=== PATIENT | female | born 2000 | race Caucasian/White ===

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

== ENCOUNTER 2022-03-11 14:15 | Emergency (ER) | payer OTHER, MEDICAID, SELFPAY ==
[2022-03-11 14:40] VITALS: PULSE 120; RESP 16; TEMP 37.1; O2SAT 100
--- NOTE | 2022-03-11 14:50 | ED.GENADULT ---
HPI - General Adult General Chief complaint: Upper Respiratory Infection Stated complaint: fever/chills/lower back pain Time Seen by Provider: 03/11/22 14:50 Source: patient Mode of arrival: ambulatory Limitations: no limitations History of Present Illness HPI narrative: 21-year-old female presents with complaint of sore throat, headaches, nasal congestion, body aches, chills for 4 days. Has also had some nausea and vomiting. Vomited once today. Had low-grade fever for 2 days but that has resolved. Patient is 26 weeks states her OB sent her here for COVID and flu testing. All systems reviewed and negative except as noted above. Related Data Home Medications Medication Instructions Recorded Confirmed No Home Medications 03/11/22 03/11/22 Allergies Allergy/AdvReac Type Severity Reaction Status Date / Time No Known Allergies Allergy Verified 07/22/20 21:59 Review of Systems Review of Systems: CONSTITUTIONAL: Reports fever, chills, or sweats. EYES: Denies visual changes, redness, or discharge. ENT: Reports rhinorrhea, congestion, sore throat. Denies otalgia. CARDIOVASCULAR: Denies chest pain, palpitations, or edema. RESPIRATORY: Reports cough. Denies dyspnea. GASTROINTESTINAL: Denies abdominal pain, nausea, vomiting, or diarrhea. GENITOURINARY: Denies dysuria or hematuria. SKIN: Denies rash or itching. MUSCULOSKELETAL: Denies back pain, joint pain, or myalgia. NEUROLOGIC: Denies headache, numbness, or weakness. PSYCHIATRIC: Denies anxiety or depression. All other systems reviewed are negative, except as documented in HPI. PMFSH Social History Social History (Updated 07/23/20 @ 03:36 by Wesley Patterson MD) Alcohol intake: current Gender identity (if verbalized by the patient): Female Comments At time of signature, agree with nursing past medical, surgical, social and family history. There is no relevant family history pertinent to the presenting complaint. Exam Narrative: GENERAL: This is a well-nourished, well-developed patient, in no apparent distress. HEAD: normocephalic, atraumatic. EYES: PERRL. Sclera clear/white. Vision is grossly intact. EARS: External ears normal, auditory canals clear and without drainage, TMs normal without perforation. Hearing grossly intact. NOSE: External nose normal with clear nasal drainage. No erythema or swelling to nares. THROAT: Mucous membranes moist, mild erythema to posterior pharynx with clear postnasal drip. NECK: Neck supple, non-tender without lymphadenopathy, masses or thyromegaly. CARDIOVASCULAR: Regular rate and rhythm without murmurs, gallops, or rubs. RESPIRATORY: Clear to auscultation. Breath sounds equal bilaterally. No wheezes, rales, or rhonchi. SKIN: warm, Dry, intact with no suspicious lesions or rash, good texture and turgor. NEURO: awake, alert, and oriented to person, place and time. There were no obvious focal neurologic abnormalities. EXTREMITIES: Normal range of motion to all extremities. Course Course Level of Care: Express Care Visit Vital Signs Vital signs: Vital Signs Temperature 37.1 C 03/11/22 14:40 Pulse Rate 120 H 03/11/22 14:40 Respiratory Rate 16 03/11/22 14:40 Pulse Oximetry 100 03/11/22 14:40 Temperature 37.1 C 03/11/22 14:40 Pulse Rate 120 H 03/11/22 14:40 Respiratory Rate 16 03/11/22 14:40 Pulse Oximetry 100 03/11/22 14:40 Reviewed Transfer Transfered to: [place] Transportation: Other (Private vehicle) Transfer rationale: Positive COVID, heart rate 120, 3+ ketones. Patient requires IV hydration. Accepting physician: Eliza Tamez NP Medical Decision Making MDM Narrative Medical decision making narrative: Transferring patient to [place] ER for IV hydration and monitoring. She is positive for COVID today. Her heart rate is 120, 3+ ketones in urine. Report given to Eliza Tamez NP. Patient agrees to transfer. Patient is aware of diagnosis, understands and
--- NOTE | 2022-03-11 15:36 | PC.NURSE ---
manpower development specialist manager to provider report given.
== END 2022-03-11 15:47 | disposition short-term general hospital (02) ==
PROVIDERS: Emergency Provider Nurse Practitioner Family
DX: O98.512 Other viral diseases complicating pregnancy, second trimester (principal); U07.1 COVID-19; Z3A.26 26 weeks gestation of pregnancy; O99.282 Endocrine, nutritional and metabolic diseases complicating pregnancy, second trimester; E86.0 Dehydration
CPT/HCPCS: 81003; 87081; 87426; 87804; 87880; 99213; C9803; G0463

== ENCOUNTER 2022-03-11 16:26 | Emergency (ER) | payer OTHER, MEDICAID, SELFPAY ==
[2022-03-11 16:48] VITALS: BP 130/81; PULSE 120; RESP 14; TEMP 36.7; O2SAT 100
[2022-03-11 17:05] LABS: Basophils Percent Auto 0.4 % (0.2-1.2); Eosinophils Percent Auto 0.2 % (0-4.4); Hematocrit 34.6 % (37.0-47.0); Hemoglobin 11.1 g/dL (12.0-15.0); Immature Granulocyte Absolute 0.02 K/mm3 (0.00-0.031); Immature Granulocyte Percent A 0.4 % (0-0.5); Lymphocytes Absolute Auto 0.91 K/mm3 (0.9-3.2); Lymphocytes Percent Auto 16.1 % (18.3-44.2); Mean Corpuscular HGB Conc 32.1 g/dl (32-36); Mean Corpuscular Volume 87.4 fl (80-100); Mean Platelet Volume 10.1 fl (7.4-10.4); Monocytes Absolute Auto 0.5 K/mm3 (0.1-0.6); Monocytes Percent Auto 8.8 % (2.6-8.5); Neutrophils Absolute Auto 4.2 K/mm3 (1.3-6.7); Neutrophils Percent Auto 74.1 % (45.5-73.1); Platelet Count Result 257 k/mm3 (150-375); Red Blood Count 3.96 M/mm3 (4.2-5.4); Red Cell Distribution Width 13.9 % (11.5-14.5); White Blood Count 5.7 K/mm3 (4.5-10.0)
[2022-03-11 17:15] LABS: Alanine Aminotransferase 21 U/L (4-35); Albumin Level 4.2 g/dL (3.5-5.1); Alkaline Phosphatase 81 U/L (38-126); Anion Gap 11 mmol/L (8-16); Aspartate Amino Transferase 36 U/L (14-36); Bilirubin,Total 0.3 mg/dL (0.2-1.3); Blood Urea Nitrogen 5 mg/dL (7-17); Calcium 8.4 mg/dL (8.4-10.2); Carbon Dioxide 20 mmol/L (22-30); Chloride 103 mmol/L (98-107); Estimated CRCL calculation 147 ml/min; Estimated Glomerular Filt Rate > 60; Glucose 93 mg/dL (65-110); Lipase 49 U/L (23-300); Potassium 3.4 mmol/L (3.4-5.0); Sodium 134 mmol/L (137-145)
[2022-03-11] MEDS: SODIUM CHLORIDE 0.9% IV 1,000 ML 999 ML IV CONT (18:52)
[2022-03-11] MEDS: ONDANSETRON INJ 4 MG/2 ML VIAL IV PUSH (18:52)
--- NOTE | 2022-03-11 19:23 | PC.NURSE ---
OB at bedside to evaluate baby
[2022-03-11 19:40] VITALS: BP 101/62; PULSE 105
--- NOTE | 2022-03-11 19:50 | ED.NAVMDI ---
HPI - Nausea/Vomiting/Diarrhea General Chief complaint: Nausea/Vomiting/Diarrhea Stated complaint: fever, chills, dehydration Time Seen by Provider: 03/11/22 18:14 History of Present Illness HPI Narrative: Patient is a 21-year-old female who presents to the ER with concerns for dehydration. Patient began having sore throat 4 days ago, progressed into cough and congestion. She was seen in urgent care today and diagnosed with COVID-19. She has been having some nausea and vomiting today which is abnormal. She is 26 weeks . She sees Wendy Ruiz at [facility]. She reports no vaginal bleeding or leakage of fluid. She is feeling the baby move without issue. She has had some fevers but no chills. Related Data Allergies Allergy/AdvReac Type Severity Reaction Status Date / Time No Known Allergies Allergy Verified 07/22/20 21:59 Review of Systems Review of Systems: All systems reviewed & are unremarkable except as noted in HPI and below Constitutional: Constitutional: Denies chills and Reports fever(s) ENT: Reports nasal congestion and Reports sore throat Cardiovascular: Cardiovascular: Denies chest pain, Denies rapid heart rate and Denies radiating jaw, neck or arm pain Respiratory: Respiratory: Reports cough, Denies dyspnea and Denies wheezing Gastrointestinal: Gastrointestinal: Denies abdominal pain, Denies diarrhea, Reports nausea and Reports vomiting Genitourinary: Genitourinary: Denies abnormal vaginal bleeding, Denies pelvic pain and Denies vaginal discharge PMFSH Past Medical History Medical History (Updated 03/11/22 @ 20:20 by Juan J Edwards MD) Healthy female adult Surgical History Surgical History (Updated 03/11/22 @ 20:20 by Juan J Edwards MD) No history of previous surgery Social History Social History (Updated 07/23/20 @ 03:36 by Wesley Patterson MD) Alcohol intake: current Gender identity (if verbalized by the patient): Female Exam Narrative: GENERAL: Well-appearing, well-nourished, and in no acute distress. HEAD: Normocephalic, atraumatic. ENT: Mucous membranes moist. CHEST: Clear to auscultation. No respiratory distress. HEART: Regular rate and rhythm. Normal peripheral pulses. ABDOMEN: Soft, nontender, nondistended. EXTREMITIES: Normal range of motion. No edema. NEURO: Alert and oriented x3. PSYCH: Normal mood and affect. Course Course Emergency Course: Feels improved with fluids. Discharge home. Patient evaluated by OB as well. Vital Signs Vital signs: Vital Signs Temperature 98.1 F 03/11/22 16:48 Pulse Rate 120 H 03/11/22 16:48 Respiratory Rate 14 03/11/22 16:48 Blood Pressure 130/81 03/11/22 16:48 Pulse Oximetry 100 03/11/22 16:48 Temperature 98.1 F 03/11/22 16:48 Pulse Rate 97 03/11/22 19:53 Respiratory Rate 18 03/11/22 19:53 Blood Pressure 104/69 03/11/22 19:53 Pulse Oximetry 99 03/11/22 19:53 MDM - Nausea/Vomiting/Diarrhea Lab Data Result diagrams: 03/11/22 16:58 03/11/22 16:58 Labs: Lab Results 03/11/22 03/11/22 Range/Units 16:58 16:58 WBC 5.7 (4.5-10.0) K/mm3 RBC 3.96 L (4.2-5.4) M/mm3 Hgb 11.1 L D (12.0-15.0) g/dL Hct 34.6 L (37.0-47.0) % MCV 87.4 (80-100) fl MCH 28.0 (26-34) pg MCHC 32.1 (32-36) g/dl RDW 13.9 (11.5-14.5) % Plt Count 257 (150-375) k/mm3 MPV 10.1 (7.4-10.4) fl Immature Gran % (Auto) 0.4 (0-0.5) % Neut % (Auto) 74.1 H (45.5-73.1) % Lymph % (Auto) 16.1 L (18.3-44.2) % [place] % (Auto) 8.8 H (2.6-8.5) % Eos % (Auto) 0.2 (0-4.4) % Baso % (Auto) 0.4 (0.2-1.2) % Lymph # (Auto) 0.91 (0.9-3.2) K/mm3 [place] # (Auto) 0.5 (0.1-0.6) K/mm3 Eos # (Auto) 0.0 (0-0.3) K/mm3 Baso # (Auto) 0.0 (0.0-0.1) K/mm3 Abs Immat Gran (auto) 0.02 (0.00-0.031) K/mm3 Absolute Neuts (auto) 4.2 (1.3-6.7) K/mm3 Absolute Nucleated RBC 0.0 (0.0-0.012) K/mm3 Nucleated RBC % 0.0 (0.0-
[2022-03-11 19:53] VITALS: BP 104/69; PULSE 97; RESP 18; O2SAT 99
== END 2022-03-11 20:50 | disposition home or self-care (01) ==
PROVIDERS: Emergency Provider Emergency Medicine; PCP Family Medicine Adolescent Medicine
DX: O98.512 Other viral diseases complicating pregnancy, second trimester (principal); U07.1 COVID-19; Z3A.26 26 weeks gestation of pregnancy; O99.282 Endocrine, nutritional and metabolic diseases complicating pregnancy, second trimester; E86.0 Dehydration
CPT/HCPCS: 36415; 80053; 83690; 85025; 96361; 96374; 99284; J2405; J7030

== ENCOUNTER 2022-06-13 22:15 | Observation (INO) | payer OTHER, MEDICAID, SELFPAY ==
[2022-06-13] VITALS (19 sets, daily range): BP systolic 102–119; BP diastolic 57–77; PULSE 90–113; TEMP 37.2; O2SAT 96–98; BMI 32.1
--- NOTE | 2022-06-13 22:33 | OBADM ---
This patient, Danielle Leal, admitted to the OB room OB Post 116 for observation. Patient/family oriented to hospital policies and general routines including ID bracelet, bed and alarms, visiting hours, pain management, procedures, bathroom and other care routines, personal items, smoking policy, room service/diet, and visiting hours. Patient/Family are encouraged to report perceived risks to care and to ask questions if they do not understand what they are told or what they should do.
[2022-06-13 23:25] LABS: Basophils Percent Auto 0.3 % (0.2-1.2); Eosinophils Absolute Auto 0.1 K/mm3 (0-0.3); Eosinophils Percent Auto 1.1 % (0-4.4); Hematocrit 32.4 % (37.0-47.0); Hemoglobin 10.4 g/dL (12.0-15.0); Immature Granulocyte Percent A 0.8 % (0-0.5); Lymphocytes Absolute Auto 2.11 K/mm3 (0.9-3.2); Lymphocytes Percent Auto 17.9 % (18.3-44.2); Mean Corpuscular HGB Conc 32.1 g/dl (32-36); Mean Corpuscular Hemoglobin 26.4 pg (26-34); Mean Corpuscular Volume 82.2 fl (80-100); Mean Platelet Volume 10.1 fl (7.4-10.4); Monocytes Absolute Auto 0.9 K/mm3 (0.1-0.6); Neutrophils Absolute Auto 8.5 K/mm3 (1.3-6.7); Neutrophils Percent Auto 71.9 % (45.5-73.1); Platelet Count Result 313 k/mm3 (150-375); Red Blood Count 3.94 M/mm3 (4.2-5.4); Red Cell Distribution Width 14.3 % (11.5-14.5); White Blood Count 11.8 K/mm3 (4.5-10.0)
[2022-06-13] MEDS: DEXTROSE 5%/LACTATED RINGERS 1,000 ML 999 ML XX (23:26)
[2022-06-13 23:40] LABS: Alanine Aminotransferase 12 U/L (6-35); Albumin Level 3.8 g/dL (3.5-5.1); Alkaline Phosphatase 131 U/L (38-126); Anion Gap 10 mmol/L (8-16); Aspartate Amino Transferase 16 U/L (14-36); Bilirubin,Total 0.3 mg/dL (0.2-1.3); Blood Urea Nitrogen 11 mg/dL (7-17); Calcium 8.7 mg/dL (8.4-10.2); Carbon Dioxide 24 mmol/L (22-30); Chloride 102 mmol/L (98-107); Estimated CRCL calculation 158 ml/min; Estimated Glomerular Filt Rate > 60; Glucose 103 mg/dL (65-110); Potassium 3.9 mmol/L (3.4-5.0); Sodium 136 mmol/L (137-145)
[2022-06-14] VITALS (63 sets, daily range): BP systolic 111–121; BP diastolic 59–76; PULSE 67–111; TEMP 36.9–37.2; O2SAT 94–99
--- NOTE | 2022-06-14 09:49 | PC.NURSE ---
IV line dc'd, plan of care discussed with patient and family.
--- NOTE | 2022-06-16 19:19 | P.PNOB_ITS ---
OB - Triage/Final Diagnosis Visit Information Comments/Additional reasons for admission: I have assessed the risk for this patient, Danielle Leal, and determined that she would benefit from observation care. Evaluation Laboratory results: Laboratory Tests 06/13/22 06/13/22 06/13/22 23:10 23:10 23:10 WBC 11.8 H RBC 3.94 L Hgb 10.4 L Hct 32.4 L MCV 82.2 MCH 26.4 MCHC 32.1 RDW 14.3 Plt Count 313 MPV 10.1 Immature Gran % (Auto) 0.8 H Neut % (Auto) 71.9 Lymph % (Auto) 17.9 L [place] % (Auto) 8.0 Eos % (Auto) 1.1 Baso % (Auto) 0.3 Lymph # (Auto) 2.11 [place] # (Auto) 0.9 H Eos # (Auto) 0.1 Baso # (Auto) 0.0 Abs Immat Gran (auto) 0.10 H Absolute Neuts (auto) 8.5 H Absolute Nucleated RBC 0.0 Nucleated RBC % 0.0 Sodium 136 L Potassium 3.9 Chloride 102 Carbon Dioxide 24 Anion Gap 10 BUN 11 D Creatinine 0.50 L Estim Creat Clear Calc 158 Estimated GFR > 60 Glucose 103 Calcium 8.7 Total Bilirubin 0.3 AST 16 ALT 12 Alkaline Phosphatase 131 H Total Protein 8.0 Albumin 3.8 Blood Type A Positive Antibody Screen Negative Final Diagnosis (1) Heart palpitations: Code(s): R00.2 - Palpitations Status: Acute
== END 2022-06-14 09:49 | disposition home or self-care (01) ==
PROVIDERS: Admitting Provider Obstetrics & Gynecology; PCP Family Medicine Adolescent Medicine; Visit Provider Obstetrics & Gynecology
DX: O36.8330 Maternal care for abnormalities of the fetal heart rate or rhythm, third trimester, not applicable or unspecified (principal); R00.2 Palpitations; Z3A.39 39 weeks gestation of pregnancy
CPT/HCPCS: 36415; 59025; 80053; 85025; 86850; 86900; 86901; G0378; G0379; J7121

== ENCOUNTER 2022-06-14 15:49 | Inpatient (IN) | payer OTHER, MEDICAID, SELFPAY ==
[2022-06-14] VITALS (38 sets, daily range): BP systolic 102–136; BP diastolic 50–109; PULSE 76–120; TEMP 36.4–37; O2SAT 96–100; BMI 32.1
--- OUTSIDE RECORDS SUMMARY | 2022-06-14 15:53 | XMS_ITS | Encounter Summary ---
:2000 Author Care Team Providers Name Role Phone Virgil Salmon MD Primary Care Provider [phone] Reason for Visit OB visit Assessment and Plan 1. Routine care 2. COVID-19 Discussion Note: None recorded.Patient educational handouts: No information available. Plan of Care Reminders Provider Appointments None recorded. ? ? Lab None recorded. ? ? Referral None recorded. ? ? Procedures None recorded. ? ? Surgeries None recorded. ? ? Imaging None recorded. ? ? Medications Name Start Date ? ? ? Medications Administered None recorded. Vitals Height Weight BMI Blood Pressure 5 ft 4 in 185 lbs 31.8 kg/m2 116/77 mm[Hg] Results Lab Results None recorded. Allergies Code Code System Name Reaction Severity Onset NKDA ? ? ? Problems Name Status Onset Date Source ? Active 02/09/2022 ? Covid-19 Active 03/11/2022 ? Group B Streptococcus Carrier Active 05/24/2022 ? Anemia Active ? ? Late Entry into Care Active ? ? Procedures Date Name Performed by ? 11/14/2020 Termination of Information not available 11/14/2019 Termination of Information not available 04/20/2022 US, Obstetric, Follow-up [place] [address] [place] [address] ([address])
--- OUTSIDE RECORDS SUMMARY | 2022-06-14 15:53 | XMS_ITS | Encounter Summary ---
:2000 Author Care Team Providers Name Role Phone Virgil Salmon MD Primary Care Provider [phone] Reason for Visit None recorded. Assessment and Plan 1. COVID-19 ? US, obstetric, follow-up Discussion Note: None recorded.Patient educational handouts: No information available. Plan of Care Reminders Provider Appointments None recorded. ? ? Lab None recorded. ? ? Referral None recorded. ? ? Procedures None recorded. ? ? Surgeries None recorded. ? ? Imaging US, Obstetric, Follow-up 03/22/2022 David read Medications Name Start Date ? ? ? Medications Administered None recorded. Vitals None recorded. Results Lab Results None recorded. Allergies Code [...] available 11/14/2019 Termination of Information not available 03/22/2022 US, Obstetric, Follow-up [place] [address] [place] [address] ([address]) Vaccine List None recorded. Social History Tobacco Smoking Status Never Smoker
--- OUTSIDE RECORDS SUMMARY | 2022-06-14 15:53 | XMS_ITS | Encounter Summary ---
:2000 Author Care Team Providers Name Role Phone Virgil Salmon MD Primary Care Provider [phone] Reason for Visit None recorded. Assessment and Plan 1. Pre-existing maternal disease compli cating ? US, obstetric, follow-up Discussion Note: None recorded.Patient educational handouts: No information available. Plan of Care Reminders Provider Appointments None recorded. ? ? Lab None recorded. ? ? Referral None recorded. ? ? Procedures None recorded. ? ? Surgeries None recorded. ? ? Imaging US, Obstetric, Follow-up 04/20/2022 David read Medications Name Start Date ? [...] Information not available 03/22/2022 US, Obstetric, Follow-up [place] [address] [place] [address] (Work [address]) 04/20/2022 US, Obstetric, Follow-up [place]
--- OUTSIDE RECORDS SUMMARY | 2022-06-14 15:53 | XMS_ITS | Encounter Summary ---
:2000 Author Care Team Providers Name Role Phone Virgil Salmon MD Primary Care Provider [phone] Reason for Visit None recorded. Assessment and Plan 1. COVID-19 ? US, obstetric, follow-up Discussion Note: None recorded.Patient educational handouts: No information available. Plan of Care Reminders Provider Appointments None recorded. ? ? Lab None recorded. ? ? Referral None recorded. ? ? Procedures None recorded. ? ? Surgeries None recorded. ? ? Imaging US, Obstetric, Follow-up 05/19/2022 David read Medications Name Start Date ? [...] Information not available 04/20/2022 US, Obstetric, Follow-up [place] [address] [place] [address] ([address]) 05/19/2022 US, Obstetric, Follow-up [place]
--- OUTSIDE RECORDS SUMMARY | 2022-06-14 15:53 | XMS_ITS | Encounter Summary ---
:2000 Author Care Team Providers Name Role Phone Virgil Salmon MD Primary Care Provider [phone] Reason for Visit OB visit Assessment and Plan Assessment Note Patient is ___weeks . Discussed plan. Discussion Note: None recorded.Patient educational handouts: No [...] BMI Blood Pressure 5 ft 4 in 182 lbs 31.2 kg/m2 106/70 mm[Hg] Results Lab Results None recorded. Allergies [...] Information not available 03/22/2022 US, Obstetric, Follow-up [place] [address] [place] [address]
--- OUTSIDE RECORDS SUMMARY | 2022-06-14 15:53 | XMS_ITS | Encounter Summary ---
:2000 Author Care Team Providers Name Role Phone Virgil Salmon MD Primary Care Provider [phone] Reason for Visit OB visit Assessment and Plan 1. Routine care Discussion Note: None recorded.Patient educational handouts: No [...] BMI Blood Pressure 5 ft 4 in 176 lbs 30.2 kg/m2 110/79 mm[Hg] Results Lab Results None recorded. Allergies [...] Information not available 03/22/2022 US, Obstetric, Follow-up [place] [address] [place] [address] (Work [address]) Vaccine List None recorded. Social
--- OUTSIDE RECORDS SUMMARY | 2022-06-14 15:53 | XMS_ITS | Encounter Summary ---
:2000 Author Care Team Providers Name Role Phone Virgil Salmon MD Primary Care Provider [phone] Reason for Visit OB visit Assessment and Plan 1. Routine care ? drug screen, urine Discussion Note: None recorded.Patient educational handouts: No information available. Plan of Care Reminders Provider Appointments None recorded. ? ? Lab Drug Screen, Urine 04/06/2022 [place] Referral None recorded. ? ? Procedures None recorded. ? ? Surgeries None recorded. ? ? Imaging None recorded. ? ? Medications Name Start Date ? ? ? Medications Administered None recorded. Vitals Height Weight BMI Blood Pressure 5 ft 4 in 179 lbs 30.7 kg/m2 117/74 mm[Hg] Results Lab Results Date Name Specimen Result Interpretation Description Value Range Status Address ? 04/06/2022 Drug Screen, Urine ? Amphetamines: negative ? ? [place]: Urine [address] [place] ? ? Urine ? Cannabinoids: positive ? ? [place]: [address] [place] ? ? Urine ? Opiates: negative ? ? [place]: [address],
--- OUTSIDE RECORDS SUMMARY | 2022-06-14 15:53 | XMS_ITS | Encounter Summary ---
:2000 Author Care Team Providers Name Role Phone Virgil Salmon MD Primary Care Provider [phone] Reason for Visit OB visit OB [id number] 06/16/2022 LMP 09/28/2021 Assessment and Plan Assessment Note Patient is _35__weeks . Discuss ed plan. 1. Routine care Discussion Note: None recorded.Patient [...] BMI Blood Pressure 5 ft 4 in 187 lbs 32.1 kg/m2 119/80 mm[Hg] Results Lab Results None recorded. Allergies [...] 11/14/2019 Termination of Information not available 04/20/2022 , Obstetric, Follow-up [place] [address]
--- OUTSIDE RECORDS SUMMARY | 2022-06-14 15:53 | XMS_ITS | Encounter Summary ---
:2000 Author Care Team Providers Name Role Phone Virgil Salmon MD Primary Care Provider [phone] Reason for Visit OB visit Assessment and [...] BMI Blood Pressure 5 ft 4 in 189 lbs 32.4 kg/m2 116/80 mm[Hg] Results Lab Results None recorded. Allergies [...] available 11/14/2019 Termination of Information not available 05/19/2022 US, Obstetric, Follow-up [place] [address] [place] [address] ([address]) Vaccine List None recorded. Social
--- NOTE | 2022-06-14 16:28 | LDADM ---
This patient, Danielle Leal, was admitted to Labor/Delivery/Recovery 109 on 06/14/22 at 15:49. Plans for labor, pain management and were discussed with patient. Patient/family oriented to hospital policies and general routines including ID bracelet, bed and alarms, visiting hours, pain management, procedures, bathroom and other care routines, personal items, smoking policy, room service/diet and guest tray routines, security routines, and visiting hours. Patient/Family are encouraged to report perceived risks to care and to ask questions if they do not understand what they are told or what they should do. See OBIX for further documentation.
[2022-06-14] MEDS: miSOPROStol 25 MCG TABLET VAGINAL (17:10)
[2022-06-14 17:11] LABS: Basophils Percent Auto 0.4 % (0.2-1.2); Eosinophils Absolute Auto 0.1 K/mm3 (0-0.3); Eosinophils Percent Auto 1.4 % (0-4.4); Hematocrit 31.9 % (37.0-47.0); Immature Granulocyte Absolute 0.07 K/mm3 (0.00-0.031); Immature Granulocyte Percent A 0.7 % (0-0.5); Lymphocytes Percent Auto 16.5 % (18.3-44.2); Mean Corpuscular HGB Conc 31.3 g/dl (32-36); Mean Corpuscular Volume 82.9 fl (80-100); Mean Platelet Volume 10.5 fl (7.4-10.4); Monocytes Absolute Auto 0.8 K/mm3 (0.1-0.6); Neutrophils Absolute Auto 7.1 K/mm3 (1.3-6.7); Platelet Count Result 298 k/mm3 (150-375); Red Blood Count 3.85 M/mm3 (4.2-5.4); Red Cell Distribution Width 14.3 % (11.5-14.5); White Blood Count 9.7 K/mm3 (4.5-10.0)
--- NOTE | 2022-06-14 19:05 | P.PNAN_ITS ---
Anes - Eval Pre Procedure Procedure: labor epidural Date/Time: 06/14/22 19:05 Surgeon: warren Pre Op Diagnosis: Induction of Labor Patient Data Age: 21 Gender: F Height: 1.63 m Weight: 85 kg Last Vital Signs Temp 36.4 C 06/14/22 16:30 Pulse 90 06/14/22 17:00 BP 124/81 06/14/22 17:00 O2 Del Method Room Air 06/14/22 16:28 Allergies Allergy/AdvReac Type Severity Reaction Status Date / Time No Known Allergies Allergy Verified 05/20/22 13:18 Home Medications Medication Instructions Recorded Confirmed Type aspirin 81 mg tablet,delayed 81 mg PO DAILY 05/20/22 06/13/22 History release (Rosie Low Dose Aspirin) ferrous sulfate 28 mg iron tablet 28 mg PO DAILY 05/20/22 06/13/22 History prenat.vits,ravinder,ilo-ohfd-nytys 1 tablet PO DAILY 05/20/22 06/13/22 History Laboratory Tests 06/14/22 06/14/22 16:58 16:58 WBC 9.7 K/mm3 K/mm3 (4.5-10.0) RBC 3.85 M/mm3 L M/mm3 (4.2-5.4) Hgb 10.0 g/dL L g/dL (12.0-15.0) Hct 31.9 % L % (37.0-47.0) MCV 82.9 fl fl (80-100) MCH 26.0 pg pg (26-34) MCHC 31.3 g/dl L g/dl (32-36) RDW 14.3 % % (11.5-14.5) Plt Count 298 k/mm3 k/mm3 (150-375) MPV 10.5 fl H fl (7.4-10.4) Immature Gran % (Auto) 0.7 % H % (0-0.5) Neut % (Auto) 73.0 % % (45.5-73.1) Lymph % (Auto) 16.5 % L % (18.3-44.2) [place] % (Auto) 8.0 % % (2.6-8.5) Eos % (Auto) 1.4 % % (0-4.4) Baso % (Auto) 0.4 % % (0.2-1.2) Lymph # (Auto) 1.60 K/mm3 K/mm3 (0.9-3.2) [place] # (Auto) 0.8 K/mm3 H K/mm3 (0.1-0.6) Eos # (Auto) 0.1 K/mm3 K/mm3 (0-0.3) Baso # (Auto) 0.0 K/mm3 K/mm3 (0.0-0.1) Abs Immat Gran (auto) 0.07 K/mm3 H K/mm3 (0.00-0.031) Absolute Neuts (auto) 7.1 K/mm3 H K/mm3 (1.3-6.7) Absolute Nucleated RBC 0.0 K/mm3 K/mm3 (0.0-0.012) Nucleated RBC % 0.0 % % (0.0-0.2) RPR Pending Patient hx anesthesia problems: none Family hx anesthesia problems: none Results Review: All pre-operative results and documents have been reviewed as part of the pre- operative evaluation. FORMERLY [facility], [facility] Past Medical History Medical History (Updated 03/12/22 @ 00:00 by Ras Burgos) Healthy female adult Surgical History Surgical History (Updated 03/11/22 @ 20:20 by Juan J Edwards MD) No history of previous surgery Family History Family History (Updated 05/20/22 @ 13:21 by Connie Santiago RN) Other No pertinent family history Social History Social History (Updated 07/23/20 @ 03:36 by Wesley Patterson MD) Smoking status: Never smoker Alcohol intake: current Substance use: former Last use: Dec 2021 Gender identity (if verbalized by the patient): Female Spiritual care concerns: No Exam Day of Procedure
[2022-06-14] MEDS: fentaNYL CITRATE INJ (*CRX) 100 MCG/2 ML VIAL 50 MCG IV PUSH (21:55)
[2022-06-14] MEDS: LACTATED RINGERS 1,000 ML 125 ML IV CONT ×2 (21:58→23:33)
[2022-06-14] MEDS: AMPICILLIN 2 GM/NS 100 ML 2 GM/100 ML BAG IVPB (21:59)
[2022-06-14] MEDS: OXYTOCIN 30 UNITS/NS 500 ML 30 UNITS/500 ML BAG 6 UNITS IV CONT (23:30)
[2022-06-15] VITALS (210 sets, daily range): BP systolic 97–146; BP diastolic 60–120; PULSE 71–134; RESP 16; TEMP 36.4–37.1; O2SAT 95–100
[2022-06-15] MEDS: TERBUTALINE SULFATE 1 MG/ML VIAL 0.25 MG SUB-Q (01:58)
[2022-06-15] MEDS: AMPICILLIN 1 GM/NS 50 ML 1 GM/50 ML BAG IVPB ×3 (01:59→10:02)
[2022-06-15] MEDS: LACTATED RINGERS 1,000 ML 125 ML IV CONT (04:33)
[2022-06-15 06:12] LABS: Rapid Plasma Reagin Non-Reactive (NonReactive)
--- NOTE | 2022-06-15 07:54 | PM.IMHP ---
H&P: HPI History of Present Illness Date/Time: 06/15/22 07:54 Chief Complaint: induction of labor Narrative: Danielle is a at 39.5 for elective IOL. uncomplicated except for anemia and GBS pos. Review of Systems Review of Systems: All systems reviewed & are unremarkable except as noted in HPI and below PMFSH Past Medical History Medical History (Updated 03/12/22 @ 00:00 by Ras Burgos) Healthy female adult Surgical History Surgical History (Updated 03/11/22 @ 20:20 by Juan J Edwards MD) No history of previous surgery Family History Family History (Updated 05/20/22 @ 13:21 by Connie Santiago RN) Other No pertinent family history Social History Social History (Updated 07/23/20 @ 03:36 by Wesley Patterson MD) Smoking status: Never smoker Alcohol intake: current Substance use: former Last use: Dec 2021 Gender identity (if verbalized by the patient): Female Spiritual care concerns: No Meds Home Medications and Allergies Home Medications Medication Instructions Recorded Confirmed Type aspirin 81 mg tablet,delayed 81 mg PO DAILY 05/20/22 06/13/22 History release (Rosie Low Dose Aspirin) ferrous sulfate 28 mg iron tablet 28 mg PO DAILY 05/20/22 06/13/22 History prenat.vits,ravinder,zvs-hkqc-pmqwd 1 tablet PO DAILY 05/20/22 06/13/22 History Allergies Allergy/AdvReac Type Severity Reaction Status Date / Time No Known Allergies Allergy Verified 05/20/22 13:18 Vital Signs Vital Signs - 24 hr 06/14/22 16:12 06/14/22 16:30 06/14/22 17:00 Temperature 97.6 F Pulse Rate 83 93 90 Blood Pressure 129/80 122/79 124/81 Pulse Oximetry Oxygen Delivery 06/14/22 21:19 06/14/22 21:30 06/14/22 21:45 Temperature Pulse Rate 91 97 120 H Blood Pressure 132/69 103/86 126/109 H Pulse Oximetry Oxygen Delivery 06/14/22 22:00 06/14/22 22:15 06/14/22 22:30 Temperature 97.9 F Pulse Rate 90 89 90 Blood Pressure 126/86 113/74 119/62 Pulse Oximetry Oxygen Delivery 06/14/22 22:35 06/14/22 22:42 06/14/22 22:44 Temperature Pulse Rate 109 H Blood Pressure 121/88 Pulse Oximetry 100 98 Oxygen Delivery 06/14/22 22:46 06/14/22 22:47 06/14/22 22:48 Temperature Pulse Rate 101 H 102 H Blood Pressure 111/56 L 120/84 Pulse Oximetry 100 Oxygen Delivery 06/14/22 22:49 06/14/22 22:53 06/14/22 22:54 Temperature Pulse Rate 98 80 Blood Pressure 114/88 120/73 Pulse Oximetry 96 Oxygen Delivery 06/14/22 22:56 06/14/22 22:58 06/14/22 23:00 Temperature 98.5 F Pulse Rate 80 90 87 Blood Pressure 121/74 121/75 116/63 Pulse Oximetry 100 Oxygen Delivery 06/14/22 23:03 06/14/22 23:08 06/14/22 23:13 Temperature Pulse Rate Blood Pressure Pulse Oximetry 100 100 99 Oxygen Delivery 06/14/22 23:15 06/14/22 23:18 06/14/22 23:23 Temperature Pulse Rate 109 H Blood Pressure 102/54 L Pulse Oximetry 100 99 Oxygen Delivery 06/14/22 23:28 06/14/22 23:29 06/14/22 23:30 Temperature Pulse Rate 91 Blood Pressure 118/72 Pulse Oximetry 99 99 Oxygen Delivery 06/14/22 23:34 06/14/22 23:39 06/14/22 23:44 Temperature Pulse Rate Blood Pressure Pulse Oximetry 100 100 100 Oxygen Delivery 06/14/22 23:46 06/14/22 23:49 06/14/22 23:54 Temperature Pulse Rate 97 Blood Pressure 136/50 L Pulse Oximetry 100 100 Oxygen Delivery 06/14/22 23:59 06/15/22 00:01 06/15/22 00:04 Temperature Pulse Rate 90 Blood Pressure 132/72 Pulse Oximetry 100 100 Oxygen Delivery 06/15/22 00:09 06/15/22 00:13 06/15/22 00:15 Temperature Pulse Rate 80 Blood Pressure 117/85 Pulse Oximetry 100 100 Oxygen Delivery 06/15/22 00:17 06/15/22 00:22 06/15/22 00:27 Temperature Pulse Rate Blood Pressure Pulse Oximetry 99 98 97 Oxygen Delivery 06/15/22 00:34 06/15/22 00:39 06/15/22 00:44 Temperat
--- NOTE | 2022-06-15 12:59 | PM.OBPRVD ---
OB - Delivery Note Procedure Delivery date: 06/15/22 Procedure: Induction method: AROM, Per Misoprostol Protocol and Per Pitocin Protocol Delivery monitor: External FHT and Internal Uterine Route of delivery: Laceration Description: Perineal - 1st Degree Delivery repair: vicryl Specimen: No Quantitative Blood Loss (ml): 160 Anesthesia type: Epidural Disposition: Floor Narrative: With adequate expulsive efforts by the mother, the baby's head was delivered OA. The baby's anterior shoulder was delivered under the pubic symphysis without difficulty. The posterior shoulder and the rest of the baby delivered without difficulty. The was placed on the mothers chest and suctioned and stimulated. The cord was clamped and cut after 30 seconds. Mother and baby both stable. [place] Baby Date of : 06/15/22 Time of : 12:34 Weeks of gestation at delivery: 39 Infant gender: Female Weight (pounds): 7 Weight (ounces): 0 presentation: vertex Placenta delivery description: Spontaneous Cord Vessel Description: 3 Vessels, Nuchal Cord and Delayed Cord Clamping score one minute: 9 score five minutes: 9
[2022-06-15] MEDS: OXYTOCIN 30 UNITS/NS 500 ML 30 UNITS/500 ML BAG 125 UNITS IV CONT (13:12)
[2022-06-15] MEDS: IBUPROFEN 600 MG TABLET PO (14:16)
[2022-06-15] MEDS: ACETAMINOPHEN 325 MG TABLET 650 MG PO (16:20)
--- NOTE | 2022-06-15 16:24 | OBPPTRN ---
1525 Patient transferred to post room #292 via W/C. Support person present. Oriented to unit, room, information board, rooming in, admission packet and security measures. Patient verbalizes understanding.
[2022-06-16 00:45] VITALS: BP 115/68; PULSE 93; RESP 16; TEMP 36.9; O2SAT 100
[2022-06-16] MEDS: IBUPROFEN 600 MG TABLET PO ×3 (01:11→19:42)
[2022-06-16 05:40] VITALS: BP 125/74; PULSE 90; RESP 16; TEMP 36.7; O2SAT 98
--- NOTE | 2022-06-16 07:25 | P.PNOB_ITS ---
OB - PN: Subj Subjective Date/time seen: 06/16/22 07:25 Patient comments: no complaints and pain well controlled baby status: doing well and bottle feeding well Reading feeding status: exclusively bottle feeding Narrative: too tired to breast feed. OB - PN: Obj Data Labs CBC & Chem 7: 06/14/22 16:58 OB - PN A/P Assessment and Plan (1) , delivered: Code(s): O80 - Encounter for full-term uncomplicated delivery Status: Acute Plan day: 1 Plan: routine care Comments: NC home tomorrow Time Spent With Patient Time: Total time spent is greater than 50% in coordination of care (as documented) at patient's floor/unit and/or counseling patient: Time with patient: less than 15 minutes Exam Narrative: NAD abdomen soft, nontender, fundus firm below the umbilicus Extremities nontender, 1+ edema
[2022-06-16 07:26] LABS: Hematocrit 29.2 % (37.0-47.0); Hemoglobin 8.8 g/dL (12.0-15.0)
[2022-06-16 08:15] VITALS: BP 112/65; PULSE 72; RESP 18; TEMP 37; O2SAT 98
[2022-06-16] MEDS: MULTIVIT/MIN/PREN/FOL AC/IRON TABLET 1 TAB PO (10:22)
[2022-06-16] MEDS: POLYSACCHARIDE IRON COMPLEX 150 MG CAPSULE PO ×2 (10:23→15:36)
--- NOTE | 2022-06-16 13:08 | PC.NURSE ---
[id number] Introductions were made, then consulted with patient to assess needs related to . Mother led the conversation with her?plans to feed?her infant and the?experience so far. Resources provided for inpatient and outpatient services using a resource guide and mom/baby guide. Mother inquired with questions regarding difficulty waking to breastfeed. Mother works well with her infant with encouragement and education. Encouraged understanding of the benefits of skin to skin (unwrapping and placing vertically on her chest), responsive feeding and how to watch for early feeding signs, frequency of feeding on demand about every 8-12 times in 24 hours (every 2-3 hours), milk production, duration of feeding, signs of adequate intake/output and how to record on the feeding sheet. Reviewed positioning and ear, shoulder, hip alignment, supporting the breast, asymmetrical latch (off-center), and leading with the chin with a big open side gape. Infant is skin to skin and demonstrating early feeding cues but not showing efforts to breastfeed after bottle feeding 2.5 hours ago. Mother instructed to call RN when begins to squirm and show feeding signs of look around her chest to eat at the breast or if her infant doesn't wake to feed by hour 3 from the start of the last feeding. Resources used to facilitate learning were used with the mom and baby guide. Mother voiced understanding of responsive feedings, stimulating with skin to skin to encourage if it has been 2 -3 hours since the start of the last , to call if infant does not latch or there is discomfort with . Reported to primary RN.
--- NOTE | 2022-06-16 13:22 | WPDANLDPN2 ---
Anes-Prog Note L&D Date/Time: 06/16/22 13:22 Comfortable throughout: labor and delivery Neuraxial method: epidural Epidural/Spinal procedure site: clean & non-tender Neuro status: Neuro function grossly intact. Cardiovascular status: normal Respiratory status: normal Airway patency: baseline Mental status: baseline Post-Op hydration status: normal Vital Signs: Last Vital Signs Temp 98.6 F 06/16/22 08:15 Pulse 72 06/16/22 08:15 Resp 18 06/16/22 08:15 BP 112/65 06/16/22 08:15 Pulse Ox 98 06/16/22 08:15 O2 Del Method Room Air 06/15/22 22:00 Pain score (VAS): 11/23 Post-procedural complaints: none Patient feedback: Patient satisfied with anesthetic care.
[2022-06-16] MEDS: DOCUSATE SODIUM 100 MG CAPSULE PO (15:36)
[2022-06-16] MEDS: ACETAMINOPHEN 325 MG TABLET 650 MG PO (15:41)
--- NOTE | 2022-06-16 18:38 | PC.NURSE ---
1705 Was called into room 292. Pt stated she felt pressure on her chest. Lungs sounded clear to Auscultation VS were Temp 98.1 oral, B/P 114/61 HR 70 Resp 18 PO2 95%. Pt not in pain. Color of skin was pale. Instructed for pt to call out if she feels worse. She V/U'd.
[2022-06-16 19:45] VITALS: BP 123/57; PULSE 80; RESP 16; TEMP 36.8; O2SAT 99
[2022-06-17] MEDS: IBUPROFEN 600 MG TABLET PO ×2 (02:24→09:03)
[2022-06-17] MEDS: ACETAMINOPHEN 325 MG TABLET 650 MG PO (02:26)
[2022-06-17 08:00] VITALS: PULSE 77; RESP 16; O2SAT 99
[2022-06-17 08:25] VITALS: BP 120/78; PULSE 77; RESP 16; TEMP 36.8; O2SAT 99
--- NOTE | 2022-06-17 08:25 | PM.OBPNVD ---
OB - PN: Subj Subjective Date/time seen: 06/17/22 08:25 Patient comments: no complaints, pain well controlled and tolerating diet OB - PN: Obj Data Labs CBC & Chem 7: 06/16/22 07:14 OB - PN A/P Plan day: 2 Plan: routine care and discharge home Time Spent With Patient Time: Total time spent is greater than 50% in coordination of care (as documented) at patient's floor/unit and/or counseling patient: Exam Const: General: comfortable and no acute distress Resp: Effort & Inspection: normal respiratory effort Auscultation: no rales, no rhonchi and no wheezes Cardio: Rate: regular rate Heart sounds: no click, no murmurs and no rubs GI: GI Palp: Yes Soft to palpation and No Tenderness to palpation present (GI) Auscultation: normal bowel sounds Extrem: General: normal to inspection, no pedal edema and no calf tenderness
--- NOTE | 2022-06-17 08:25 | PM.OBDSVD ---
DS: Admitting Diagnosis Discharge Date 06/17/22 Admitting Diagnosis term DS: Discharge Diagnosis Discharge Diagnosis (1) , delivered: Code(s): O80 - Encounter for full-term uncomplicated delivery Status: Acute OB - DS: Summary OB Procedures : None OB Procedures Intrapartum: Spontaneous Vag Delivery OB Procedures: : None Time Spent with Patient Time attestation: Total time spent providing and/or coordinating discharge services: Discharge Plan Discharge Discharging Clinician: Cassandra Tejeda Patient Disposition: Home, Self-Care Activity: pelvic rest Diet: regular Patient Instructions: Antibiotic Form Stand Alone Forms: General Discharge Information Follow-up/Referrals: Cassandra Tejeda MD [Physician] - Discharge Medications: Continued aspirin [Rosie Low Dose Aspirin] 81 mg Tablet,Delayed Release (Dr/Ec) 81 mg PO DAILY prenat.vits,ravinder,[id number] Tablet 1 tablet PO DAILY ferrous sulfate 28 mg iron Tablet 28 mg PO DAILY Date of admission: 06/14/22 15:49 Primary Care Provider: Virgil Salmon Admitting Provider: Wendy Ruiz Attending physician on admission: Wendy Ruiz Condition: Stable
--- NOTE | 2022-06-17 08:47 | PC.NURSE ---
[id number] Infant is at the patient coordinator front desk fussing so RN transported infant to room for the benefits of skin to skin with her mother. Infant calmed with mothers skin to skin and talking. Encouraged the benefits of skin to skin with mother. Consulted with patient to assess needs related to . Mother led the conversation with her?plans to feed?her and states she did not breastfeed yesterday because she had a lot of company and didn't feel comfortable in front of them, so she bottle fed formula. Reviewed milk production and supply. Resources provided for inpatient and outpatient services using a resource guide and mom/baby guide. Mother voiced understanding of information and will call for assistance with latching at the next feeding. Reported to primary RN.
[2022-06-17] MEDS: MULTIVIT/MIN/PREN/FOL AC/IRON TABLET 1 TAB PO (09:03)
[2022-06-17] MEDS: POLYSACCHARIDE IRON COMPLEX 150 MG CAPSULE PO (09:04)
[2022-06-17] MEDS: DOCUSATE SODIUM 100 MG CAPSULE PO (09:04)
--- NOTE | 2022-06-17 10:43 | PC.NURSE ---
[id number] Consulted with patient to assess needs related to . Mother works well with her infant with encouragement. Reviewed working with infant, breast, nipples and how to protect the nipples with an optimal deep latch, good positioning, and good hand washing. Encouraged understanding the benefits of skin to skin, responding to feeding cues, frequencies of feeding 8-12 times in 24 hours (approximately 2-3 hours), duration of feedings, milk production, intake/output feeding sheet and signs of adequate intake encouraging swallowing at the breast. Reviewed positioning and alignment, supporting breast, off-centered (asymmetrical latch) and leading with the chin with big open wide gape. Infant latched optimally to the left breast in cross cradle position. Education given to mother of how to visualize suck/swallow ratios and drinking at the breast. was able to maintain latch without discomfort to mother. Nipple care reviewed with optimal latch and good positioning and clean hands when touching the nipple/breast as needed. detached after 9 minutes, placed skin to skin, the optimally latched to the right breast after feeding cues were visualized using the cross cradle positioning. Mother visualizes good suck/swallow ratios and the father of baby is actively involved with supporting the couplet. Resources used to facilitate learning were used from the tool/mom and baby guide. Mother is feeding appropriately for growth of infant and understands stimulating infant to eat if needed. has had appropriate feedings in the last 24 hours meets the outcomes for weight, output and jaundice at this time. Mother states she is confident to continue effectively /supplementing her at home or when to call for assistance and denies any additional assistance or education at this time. Reinforced understanding of milk production, transition of milk, signs of adequate intake, prevention/relief of engorgement, responsive after visualizing feeding cues, the different methods of stimulating to breastfeed 2-3 hours after the start of the last feeding, community resources, medication information reviewed per [employer] and when to call a provider using the resource of the mom and baby guide/[facility] website. Mother voiced understanding of the education shared. Reported to the primary RN.
--- NOTE | 2022-06-17 12:06 | PC.NURSE ---
Patient viewed the discharge video Mother & Baby Care, The First Two Weeks . Patient was given the opportunity and encouraged to ask questions. Patient verbalized understanding of information shared and has been given the mother/baby guide for home reference.
--- NOTE | 2022-06-17 13:13 | PC.NURSE ---
[id number] Consulted with patient to assess needs related to per patient request. Mother led conversation with her experience with feeding baby so far and has infant latched optimally but mother was concerned about the pinchy discomfort. Demonstrated how to detach infant from the breast. Nipple was not misshaped. Mother works well with her with encouragement. Reviewed working with , breast, nipples and how to protect the nipples with an optimal deep latch, good positioning, and good hand washing. Encouraged understanding the benefits of skin to skin, responding to feeding cues, frequencies of feeding 8-12 times in 24 hours (approximately 2-3 hours), duration of feedings, milk production, intake/output feeding sheet and signs of adequate intake encouraging swallowing at the breast. Reviewed positioning and alignment, supporting breast, off-centered (asymmetrical latch) and leading with the chin with big open wide gape. Infant latched optimally to the right breast in cross cradle position. Education given to mother of how to visualize suck/swallow ratios and drinking at the breast. Infant was able to maintain latch without discomfort to mother. Nipple care reviewed with optimal latch and good positioning. Mother voiced understanding of the education shared, calling for assistance if the does not latch or if there is discomfort with . Reported to the primary RN.
[2022-06-18 15:17] VITALS: BP 114/70; PULSE 115; RESP 18; TEMP 37.1; O2SAT 100
== END 2022-06-17 15:44 | disposition home or self-care (01) | DRG 807 ==
LOC: ANHOB2 06-17 12:13 → ANHLDR 06-18 10:25
PROVIDERS: Admitting Provider Obstetrics & Gynecology; PCP Family Medicine Adolescent Medicine; Visit Provider Obstetrics & Gynecology
DX: O99.824 Streptococcus B carrier state complicating childbirth (principal); Z37.0 Single live birth; Z3A.39 39 weeks gestation of pregnancy; O70.0 First degree perineal laceration during delivery; O69.81X0 Labor and delivery complicated by cord around neck, without compression, not applicable or unspecified; O99.02 Anemia complicating childbirth; D64.9 Anemia, unspecified
CPT/HCPCS: 36415; 59025; 80053; 85014; 85018; 85025; 86592; 86850; 86900; 86901; A9270; G0378; G0379; J0290; J2590; J2795; J3010; J3105; J7120; J7121

== ENCOUNTER 2022-08-01 15:54 | Emergency (ER) | payer OTHER, MEDICAID, SELFPAY ==
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
[2022-08-01 16:00] VITALS: BP 125/76; PULSE 80; RESP 16; TEMP 37.1; O2SAT 99
[2022-08-01] MEDS: ONDANSETRON INJ 4 MG/2 ML VIAL IV PUSH (17:09)
[2022-08-01] MEDS: MORPHINE SULFATE (*CRX) 4 MG/ML INJ IV PUSH (17:09)
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
[2022-08-01 17:44] LABS: Basophils Absolute Auto 0.1 K/mm3 (0.0-0.1); Basophils Percent Auto 0.5 % (0.2-1.2); Eosinophils Absolute Auto 0.1 K/mm3 (0-0.3); Eosinophils Percent Auto 1.2 % (0-4.4); Hematocrit 38.8 % (37.0-47.0); Hemoglobin 12.2 g/dL (12.0-15.0); Immature Granulocyte Absolute 0.02 K/mm3 (0.00-0.031); Immature Granulocyte Percent A 0.2 % (0-0.5); Lymphocytes Absolute Auto 2.01 K/mm3 (0.9-3.2); Lymphocytes Percent Auto 19.8 % (18.3-44.2); Mean Corpuscular HGB Conc 31.4 g/dl (32-36); Mean Corpuscular Hemoglobin 25.6 pg (26-34); Mean Corpuscular Volume 81.3 fl (80-100); Mean Platelet Volume 10.5 fl (7.4-10.4); Monocytes Absolute Auto 0.6 K/mm3 (0.1-0.6); Neutrophils Absolute Auto 7.3 K/mm3 (1.3-6.7); Neutrophils Percent Auto 72.3 % (45.5-73.1); Platelet Count Result 391 k/mm3 (150-375); Red Blood Count 4.77 M/mm3 (4.2-5.4); Red Cell Distribution Width 14.7 % (11.5-14.5); White Blood Count 10.2 K/mm3 (4.5-10.0)
[2022-08-01 17:54] LABS: Alanine Aminotransferase 40 U/L (6-35); Albumin Level 4.5 g/dL (3.5-5.1); Alkaline Phosphatase 85 U/L (38-126); Anion Gap 11 mmol/L (8-16); Aspartate Amino Transferase 40 U/L (14-36); Bilirubin,Total 0.5 mg/dL (0.2-1.3); Blood Urea Nitrogen 12 mg/dL (7-17); Calcium 9.3 mg/dL (8.4-10.2); Carbon Dioxide 22 mmol/L (22-30); Chloride 106 mmol/L (98-107); Estimated CRCL calculation 113 ml/min; Estimated Glomerular Filt Rate > 60; Glucose 102 mg/dL (65-110); Sodium 139 mmol/L (137-145)
[2022-08-01 19:37] VITALS: BP 126/84; PULSE 80; RESP 16; O2SAT 99
[2022-08-01] MEDS: KETOROLAC 30 MG/ML VIAL (*BKC) IV PUSH (19:37)
== END 2022-08-01 19:38 | disposition home or self-care (01) ==
PROVIDERS: Physician Assistant; Emergency Provider General Practice; PCP Family Medicine Adolescent Medicine
DX: S40.011A Contusion of right shoulder, initial encounter (principal); M54.9 Dorsalgia, unspecified; Z79.82 Long term (current) use of aspirin; V86.55XA Driver of 3- or 4- wheeled all-terrain vehicle (ATV) injured in nontraffic accident, initial encounter
CPT/HCPCS: 36415; 70450; 71260; 72125; 73030; 73080; 73630; 74177; 80053; 81025; 85025; 96374; 96375; 99284; J1885; J2270; J2405; Q9967

== ENCOUNTER 2023-05-15 09:57 | Emergency (ER) | payer OTHER, SELFPAY ==
[2023-05-15 10:00] VITALS: BP 140/69; PULSE 91; RESP 16; TEMP 36.8; O2SAT 99
--- NOTE | 2023-05-15 10:23 | ED.URI ---
HPI - URI/Sore Throat General Chief Complaint: Upper Respiratory Infection Stated Complaint: sore throat Time Seen by Provider: 05/15/23 10:23 Source: patient Mode of arrival: ambulatory Limitations: no limitations History of Present Illness HPI Narrative: 22-year-old female presents complaint of cough, nasal congestion, sore throat for 2 days. Afebrile. No known strep exposure. Denies nausea vomiting diarrhea. All systems reviewed and negative except as noted above. Related Data Home Medications Medication Instructions Recorded Confirmed No Home Medications 05/15/23 05/15/23 Allergies Allergy/AdvReac Type Severity Reaction Status Date / Time No Known Allergies Allergy Verified 05/15/23 09:58 Review of Systems Review of Systems: CONSTITUTIONAL: Denies fever, chills, or sweats. EYES: Denies visual changes, redness, or discharge. ENT: Reports rhinorrhea, congestion, sore throat. Denies otalgia. CARDIOVASCULAR: Denies chest pain, palpitations, or edema. RESPIRATORY: reports cough. Denies dyspnea. GASTROINTESTINAL: Denies abdominal pain, nausea, vomiting, or diarrhea. GENITOURINARY: Denies dysuria or hematuria. SKIN: Denies rash or itching. MUSCULOSKELETAL: Denies back pain, joint pain, or myalgia. NEUROLOGIC: Denies headache, numbness, or weakness. PSYCHIATRIC: Denies anxiety or depression. All other systems reviewed are negative, except as documented in HPI. [facility] Past Medical History Medical History No pertinent past medical history Surgical History Surgical History No history of previous surgery Family History Family History (Updated 05/20/22 @ 13:21 by Connie Santiago RN) Other No pertinent family history Social History Social History (Updated 08/01/22 @ 17:52 by Susan Saravia PA-C) Smoking status: Never smoker Alcohol intake: current Substance use: current Substance use type: marijuana Last use: Dec 2021 Gender identity (if verbalized by the patient): Female Spiritual care concerns: No Comments At time of signature, agree with nursing past medical, surgical, social and family history. There is no relevant family history pertinent to the presenting complaint. Exam Narrative: GENERAL: This is a well-nourished, well-developed patient, in no apparent distress. HEAD: normocephalic, atraumatic. EYES: PERRL. Sclera clear/white. Vision is grossly intact. EARS: External ears normal, auditory canals clear and without drainage, TMs normal without perforation. Hearing grossly intact. NOSE: External nose normal with no obvious nasal discharge, nares without redness, no rhinorrhea. THROAT: Mucous membranes moist, mild erythema to posterior pharynx without swelling. No exudates. NECK: Neck supple, non-tender without lymphadenopathy, masses or thyromegaly. CARDIOVASCULAR: Regular rate and rhythm without murmurs, gallops, or rubs. RESPIRATORY: Clear to auscultation. Breath sounds equal bilaterally. No wheezes, rales, or rhonchi. SKIN: warm, Dry, intact with no suspicious lesions or rash, good texture and turgor. NEURO: awake, alert, and oriented to person, place and time. There were no obvious focal neurologic abnormalities. EXTREMITIES: No joint tenderness, effusion, or edema noted. Course Course Level of Care: Express Care Visit Vital Signs Vital signs: Vital Signs Temperature 36.8 C 05/15/23 10:00 Pulse Rate 91 05/15/23 10:00 Respiratory Rate 16 05/15/23 10:00 Blood Pressure 140/69 05/15/23 10:00 Pulse Oximetry 99 05/15/23 10:00 Oxygen Delivery Room Air 05/15/23 10:00 Temperature 36.8 C 05/15/23 10:00 Pulse Rate 91 05/15/23 10:00 Respiratory Rate 16 05/15/23 10:00 Blood Pressure 140/69 05/15/23 10:00 Pulse Oximetry 99 05/15/23 10:00 Oxygen Delivery Room Air 05/15/23 10:00 Re
== END 2023-05-15 10:49 | disposition home or self-care (01) ==
PROVIDERS: Emergency Provider Nurse Practitioner Family; PCP Family Medicine Adolescent Medicine
DX: J06.9 Acute upper respiratory infection, unspecified (principal); Z20.822 Contact with and (suspected) exposure to COVID-19
CPT/HCPCS: 87081; 87426; 87880; 99213; C9803; G0463

== ENCOUNTER 2023-10-10 18:06 | Emergency (ER) | payer OTHER, MEDICAID, SELFPAY ==
--- NOTE | ~2023-10-10 | US_ITS ---
Pelvic ultrasound. Clinical History: First trimester , pain Technique: Realtime transabdominal and transvaginal scanning of the pelvis was performed. Color flow Doppler and Doppler spectral analysis were performed. Findings: The uterus is anteverted, and contains an intrauterine gestational sac. [place]-rump length o f 7 mm corresponds to an estimated gestational age of 6 weeks 4 days. heart rate is 127 bpm. The right ovary measures 3.0 x 2.9 x 2.1 cm. No significant right ovarian or adnexal mass is seen. The left ovary measures 2.8 x 2.3 x 3.0 cm. No significant left ovarian or adnexal mass is seen. Vascular flow present in both ovaries on Doppler spectral analysis. There is no evidence of free fluid in the cul de sac. Impression: Live intrauterine gestation with estimated gestational age of 6 weeks 4 days. heart rate is 127 bpm. Reviewed, dictated and finalized at [facility]. PHYSICIAN Impression: Live intrauterine gestation with estimated gestational age of 6 weeks 4 days. F etal heart rate is 127 bpm.
[2023-10-10 18:28] VITALS: BP 137/87; PULSE 87; RESP 17; TEMP 36.6; O2SAT 97
[2023-10-10 23:01] VITALS: PULSE 78; RESP 16; O2SAT 99
[2023-10-10 23:04] VITALS: BP 105/73
[2023-10-10 23:08] LABS: Basophils Absolute Auto 0.1 K/mm3 (0.0-0.1); Basophils Percent Auto 0.4 % (0.2-1.2); Eosinophils Percent Auto 0.2 % (0-4.4); Hematocrit 45.8 % (37.0-47.0); Hemoglobin 15.1 g/dL (12.0-15.0); Immature Granulocyte Absolute 0.05 K/mm3 (0.00-0.031); Immature Granulocyte Percent A 0.4 % (0-0.5); Lymphocytes Absolute Auto 1.15 K/mm3 (0.9-3.2); Lymphocytes Percent Auto 8.7 % (18.3-44.2); Mean Corpuscular Hemoglobin 27.6 pg (26-34); Mean Corpuscular Volume 83.7 fl (80-100); Mean Platelet Volume 10.5 fl (7.4-10.4); Monocytes Absolute Auto 0.7 K/mm3 (0.1-0.6); Neutrophils Absolute Auto 11.2 K/mm3 (1.3-6.7); Neutrophils Percent Auto 85.3 % (45.5-73.1); Platelet Count Result 393 k/mm3 (150-375); Red Blood Count 5.47 M/mm3 (4.2-5.4); Red Cell Distribution Width 12.9 % (11.5-14.5); White Blood Count 13.2 K/mm3 (4.5-10.0)
[2023-10-10 23:11] LABS: Appearance Urine Cloudy (Clear); Bacteria Urine 4+ /hpf; Bilirubin Urine Negative (Negative); Blood Urine Negative (Negative); Color Urine Dark Yellow (Yellow); Glucose Urine UA Negative (Negative); Ketones Urine 4+ mg/dL (Negative); Leukocyte Esterase Ur 2+ LEU/UL (Negative); Nitrate Urine Negative (Negative); Non Pathogenic Casts 0-2; Protein Urine 1+ mg/dL (Negative); Squamous Epithelial Cell Urine Many /hpf (Few); WBC Urine 21-50 /hpf
[2023-10-10 23:13] LABS: Add Urine Microscopic? YES; Specific Grav Ur 1.039 (1.001-1.035)
[2023-10-10 23:17] LABS: Potassium 3.4 mmol/L (3.4-5.0)
[2023-10-10 23:21] LABS: Alanine Aminotransferase 20 U/L (6-35); Albumin Level 4.7 g/dL (3.5-5.1); Alkaline Phosphatase 71 U/L (38-126); Anion Gap 14 mmol/L (8-16); Aspartate Amino Transferase 24 U/L (14-36); Bilirubin,Total 0.7 mg/dL (0.2-1.3); Blood Urea Nitrogen 13 mg/dL (7-17); Calcium 9.4 mg/dL (8.4-10.2); Carbon Dioxide 22 mmol/L (22-30); Chloride 102 mmol/L (98-107); Estimated CRCL calculation 157 ml/min; Estimated Glomerular Filt Rate > 60; Glucose 123 mg/dL (65-110); Lipase 31 U/L (23-300); Sodium 138 mmol/L (137-145)
[2023-10-11] MEDS: METOCLOPRAMIDE HCL INJ 10 MG/2 ML VIAL IV PUSH (00:17)
[2023-10-11] MEDS: SODIUM CHLORIDE 0.9% IV 1,000 ML 999 ML IV CONT (00:17)
[2023-10-11 00:19] LABS: Pregnancy On Board Control Positive; Urine Pregnancy Test Positive
[2023-10-11 01:32] VITALS: PULSE 95; RESP 16; O2SAT 100
[2023-10-11 03:13] VITALS: BP 133/65; PULSE 70; RESP 18; O2SAT 100
--- NOTE | 2023-10-11 03:16 | ED.GENADULT ---
HPI - General Adult General Chief complaint: Nausea/Vomiting/Diarrhea Stated complaint: preg- N/V; unable to eat Time Seen by Provider: 10/11/23 00:06 History of Present Illness HPI narrative: patient is a 22-year-old female presents emergency department chief complaint of nausea vomiting unable to keep fluids down patient reports that she has also had abdominal cramping patient does have a home test that was positive and is scheduled to see OB on the . The patient denies vaginal bleeding and denies vaginal discharge. Related Data Allergies Allergy/AdvReac Type Severity Reaction Status Date / Time No Known Allergies Allergy Verified 10/10/23 22:39 Review of Systems Review of Systems: A 10 system review of systems was completed on the patient and is negative except for what is stated in the HPI. Nursing and ancillary documentation was reviewed. Exam Narrative: GENERAL: Well-appearing, well-nourished, and in no acute distress. HEAD: Normocephalic, atraumatic. EYES: PERRLA and EOMI. ENT: Nares clear, no rhinorrhea or epistaxis. Mucous membranes moist. NECK: Supple. CHEST: Clear to auscultation. No respiratory distress. HEART: Regular rate and rhythm. No murmur heard. Normal peripheral pulses. ABDOMEN: Soft, nontender, nondistended, normal active bowel sounds. EXTREMITIES: Normal range of motion. No edema. SKIN: Warm, dry, no rash. NEURO: No focal deficits. Alert and oriented x3. PSYCH: Normal mood and affect. Course Vital Signs Vital signs: Vital Signs Temperature 36.6 C 10/10/23 18:28 Pulse Rate 87 10/10/23 18:28 Respiratory Rate 17 10/10/23 18:28 Blood Pressure 137/87 10/10/23 18:28 Pulse Oximetry 97 10/10/23 18:28 Oxygen Delivery Room Air 10/10/23 18:28 Temperature 36.6 C 10/10/23 18:28 Pulse Rate 70 10/11/23 03:13 Respiratory Rate 18 10/11/23 03:13 Blood Pressure 133/65 10/11/23 03:13 Pulse Oximetry 100 10/11/23 03:13 Oxygen Delivery Room Air 10/10/23 18:28 Medical Decision Making [facility] Narrative Medical decision making narrative: differential diagnosis includes gastroenteritis, UTI, ectopic , hyperemesis gravidarum laboratory studies were obtained on the patient showed CBC with a white count of 13.2 hemoglobin was 15.1 electrolytes are within normal limits liver enzymes are normal hCG was 28,196 ultrasound showed IUP with a rate of 127 approximately 6 weeks 4 days urinalysis showed 21-50 white blood cells Vital Signs Vital Signs: Vital Signs Temperature 36.6 C 10/10/23 18:28 Pulse Rate 87 10/10/23 18:28 Respiratory Rate 17 10/10/23 18:28 Blood Pressure 137/87 10/10/23 18:28 Pulse Oximetry 97 10/10/23 18:28 Oxygen Delivery Room Air 10/10/23 18:28 Temperature 36.6 C 10/10/23 18:28 Pulse Rate 70 10/11/23 03:13 Respiratory Rate 18 10/11/23 03:13 Blood Pressure 133/65 10/11/23 03:13 Pulse Oximetry 100 10/11/23 03:13 Oxygen Delivery Room Air 10/10/23 18:28 Lab Data 10/10/23 22:59 10/10/23 22:59 Labs: Lab Results 10/10/23 Range/Units 22:59 WBC 13.2 H (4.5-10.0) K/mm3 RBC 5.47 H (4.2-5.4) M/mm3 Hgb 15.1 H (12.0-15.0) g/dL Hct 45.8 (37.0-47.0) % MCV 83.7 (80-100) fl MCH 27.6 (26-34) pg MCHC 33.0 (32-36) g/dl RDW 12.9 (11.5-14.5) % Plt Count 393 H (150-375) k/mm3 MPV 10.5 H (7.4-10.4) fl Immature Gran % (Auto) 0.4 (0-0.5) % Neut % (Auto) 85.3 H (45.5-73.1) % Lymph % (Auto) 8.7 L (18.3-44.2) % [place] % (Auto) 5.0 (2.6-8.5) % Eos % (Auto) 0.2 (0-4.4) % Baso % (Auto) 0.4 (0.2-1.2) % Lymph # (Auto) 1.15 (0.9-3.2) K/mm3 [place] # (Auto) 0.7 H (0.1-0.6) K/mm3 Eos # (Auto) 0.0 (0-0.3) K/mm3 Baso # (Auto) 0.1 (0.0-0.1) K/mm3 Abs Immat Gran (auto) 0.05 H (0.00-0.031) K/mm3 Absolute Neuts (auto) 11.2 H (1.3-6.7) K/mm3 Absolute Nucleated RBC 0.0 (0.0-0.012) K/mm3 Nuclea
== END 2023-10-11 04:30 | disposition home or self-care (01) ==
PROVIDERS: Emergency Provider Emergency Medicine; PCP Family Medicine Adolescent Medicine
DX: O23.41 Unspecified infection of urinary tract in pregnancy, first trimester (principal); N39.0 Urinary tract infection, site not specified; O21.9 Vomiting of pregnancy, unspecified; Z3A.01 Less than 8 weeks gestation of pregnancy
CPT/HCPCS: 36415; 76801; 76817; 80053; 81001; 81025; 83690; 84702; 85025; 85461; 86850; 86900; 86901; 87086; 96361; 96374; 99284; J2765; J7030

== ENCOUNTER 2024-02-04 10:08 | Emergency (ER) | payer OTHER, MEDICAID, SELFPAY ==
[2024-02-04 10:11] VITALS: BP 131/82; PULSE 136; RESP 20; TEMP 36.4; O2SAT 100
--- NOTE | 2024-02-04 10:20 | ED.URI ---
HPI - URI/Sore Throat General Chief Complaint: Upper Respiratory Infection Stated Complaint: 23WEEKS PREG N/V UPPER RESP ISSUES Time Seen by Provider: 02/04/24 10:18 Source: patient Mode of arrival: ambulatory Limitations: no limitations History of Present Illness HPI Narrative: Patient is a 23 y/o female who presents to the ED with c/o URI sx's. Patient reports she has been sick for the last 2 days with cough, congestion, myalgias, nausea, vomiting, chest wall pain with coughing. States she has been unable to keep down food or drink. Unable to keep down any Tylenol. She has been at work with several people who have been ill. Patient is currently 23 weeks gestation, , sees Dr. Oreilly. She denies abdominal pain or vaginal bleeding. Denies known fevers. Denies shortness breath or chest pain at rest. Denies pain or swelling in lower extremities. Related Data Allergies Allergy/AdvReac Type Severity Reaction Status Date / Time No Known Allergies Allergy Verified 12/23/23 14:06 Review of Systems Review of Systems: CONSTITUTIONAL: Denies fever, chills, or sweats. ENT: See HPI. CARDIOVASCULAR: Denies chest pain, palpitations, or edema. RESPIRATORY: see HPI. GASTROINTESTINAL: See HPI. GENITOURINARY: Denies vaginal bleeding, dysuria or hematuria. All systems reviewed & are unremarkable except as noted in HPI and below PMFSH Past Medical History Medical History No pertinent past medical history Surgical History Surgical History No history of previous surgery Family History Family History Other No pertinent family history Social History Social History Smoking status: Never smoker Alcohol intake: current Substance use: current Substance use type: marijuana Last use: Dec 2021 Gender identity (if verbalized by the patient): Female Spiritual care concerns: No Exam Narrative: GENERAL: Well appearing, well-nourished, non-toxic, in no acute distress. HEAD: Normocephalic, atraumatic. RESPIRATORY: Airway patent, respirations nonlabored. Clear to auscultation bilaterally, no rales, rhonchi, wheezing. frequent coughing on exam. No focal lung sounds. CARDIOVASCULAR: tachycardic with regular rhythm without murmurs, rubs, or gallops. ABDOMINAL: Soft, uterus gravid, nontender, nondistended. Normoactive BS. MUSCULOSKELETAL: Moves all extremities. No gross deformities. SKIN: Warm, dry, normal color. NEURO: A&O X3. Speech clear. PSYCHIATRIC: Appropriate mood and affect. Normal interaction. Course Vital Signs Vital signs: Vital Signs Temperature 97.6 F 02/04/24 10:11 Pulse Rate 136 H 02/04/24 10:11 Respiratory Rate 20 02/04/24 10:11 Blood Pressure 131/82 02/04/24 10:11 Pulse Oximetry 100 02/04/24 10:11 Oxygen Delivery Room Air 02/04/24 10:11 Temperature 97.6 F 02/04/24 10:11 Pulse Rate 112 H 02/04/24 11:28 Respiratory Rate 17 02/04/24 11:28 Blood Pressure 121/69 02/04/24 11:28 Pulse Oximetry 99 02/04/24 11:28 Oxygen Delivery Room Air 02/04/24 10:58 MDM - URI/Sore Throat MDM Narrative Medical decision making narrative: Patient presented to ED with 2 day history of URI symptoms, nausea, vomiting, currently 23 weeks gestation. Denying abdominal pain or vaginal bleeding. Vitals are stable upon arrival. Patient mildly tachycardic, in no acute distress. Fluids initiated. Good heart tones with bedside Doppler. Laboratory studies fairly unremarkable. CBC with white blood cell count of 10.0. Minimal anemia. CMP with bicarb of 20, stable kidney function, stable electrolytes. Urinalysis with 4+ ketones, evidence for infection. Will treat. Given dose of Rocephin in the ED. Will discharge w/ Ke
[2024-02-04] MEDS: SODIUM CHLORIDE 0.9% IV 1,000 ML 999 ML IV CONT ×2 (10:34→11:28)
[2024-02-04] MEDS: METOCLOPRAMIDE HCL INJ 10 MG/2 ML VIAL IV PUSH (10:36)
[2024-02-04] MEDS: diphenhydrAMINE HCl INJ 50 MG/ML VIAL 25 MG IV PUSH (10:36)
[2024-02-04 10:45] LABS: Basophils Percent Auto 0.4 % (0.2-1.2); Eosinophils Percent Auto 0.4 % (0-4.4); Hematocrit 35.5 % (37.0-47.0); Hemoglobin 11.9 g/dL (12.0-15.0); Immature Granulocyte Absolute 0.08 K/mm3 (0.00-0.031); Immature Granulocyte Percent A 0.8 % (0-0.5); Lymphocytes Absolute Auto 0.38 K/mm3 (0.9-3.2); Lymphocytes Percent Auto 3.8 % (18.3-44.2); Mean Corpuscular HGB Conc 33.5 g/dl (32-36); Mean Corpuscular Hemoglobin 29.1 pg (26-34); Mean Corpuscular Volume 86.8 fl (80-100); Mean Platelet Volume 10.1 fl (7.4-10.4); Monocytes Absolute Auto 0.6 K/mm3 (0.1-0.6); Monocytes Percent Auto 6.1 % (2.6-8.5); Neutrophils Absolute Auto 8.8 K/mm3 (1.3-6.7); Neutrophils Percent Auto 88.5 % (45.5-73.1); Platelet Count Result 284 k/mm3 (150-375); Red Blood Count 4.09 M/mm3 (4.2-5.4); Red Cell Distribution Width 13.2 % (11.5-14.5)
[2024-02-04 10:54] LABS: Alanine Aminotransferase 17 U/L (6-35); Albumin Level 4.2 g/dL (3.5-5.1); Alkaline Phosphatase 85 U/L (38-126); Anion Gap 9 mmol/L (8-16); Aspartate Amino Transferase 27 U/L (14-36); Bilirubin,Total 0.6 mg/dL (0.2-1.3); Blood Urea Nitrogen 5 mg/dL (7-17); Calcium 9.4 mg/dL (8.4-10.2); Carbon Dioxide 20 mmol/L (22-30); Chloride 105 mmol/L (98-107); Estimated Glomerular Filt Rate > 60; Glucose 116 mg/dL (65-110); Lipase 55 U/L (23-300); Potassium 3.7 mmol/L (3.4-5.0); Sodium 134 mmol/L (137-145)
[2024-02-04 10:58] VITALS: O2SAT 100
[2024-02-04 11:01] LABS: Appearance Urine Cloudy (Clear); Bacteria Urine 4+ /hpf; Bilirubin Urine Negative (Negative); Blood Urine Negative (Negative); Color Urine Dark Yellow (Yellow); Glucose Urine UA Negative (Negative); Ketones Urine 4+ mg/dL (Negative); Leukocyte Esterase Ur 1+ LEU/UL (Negative); Mucus Urine Present /lpf; Nitrate Urine Negative (Negative); Protein Urine 1+ mg/dL (Negative); Squamous Epithelial Cell Urine Moderate /hpf (Few); WBC Urine 21-50 /hpf (0-3); pH Urine 5.5 (5.0-9.0)
[2024-02-04 11:02] LABS: Add Urine Microscopic? YES; Specific Grav Ur 1.032 (1.001-1.035)
[2024-02-04 11:07] VITALS: BP 129/65; PULSE 101
[2024-02-04 11:10] VITALS: BP 133/74; PULSE 115
[2024-02-04 11:12] VITALS: BP 144/77; PULSE 125
[2024-02-04 11:21] LABS: Influenza A QL RT-PCR Positive (Negative); Influenza B QL RT-PCR Negative (Negative); RSV RNA, RT-PCR Negative (Negative); SARS-CoV-2 RNA PCR Negative (Negative)
[2024-02-04 11:28] VITALS: BP 121/69; PULSE 112; RESP 17; O2SAT 99
[2024-02-04] MEDS: OSELTAMIVIR PHOSPHATE 75 MG CAPSULE PO (11:33)
== END 2024-02-04 13:25 | disposition home or self-care (01) ==
PROVIDERS: Emergency Provider Physician Assistant; PCP Family Medicine Adolescent Medicine
DX: O99.512 Diseases of the respiratory system complicating pregnancy, second trimester (principal); J10.1 Influenza due to other identified influenza virus with other respiratory manifestations; O23.42 Unspecified infection of urinary tract in pregnancy, second trimester; N39.0 Urinary tract infection, site not specified; Z3A.23 23 weeks gestation of pregnancy; Z20.822 Contact with and (suspected) exposure to COVID-19
CPT/HCPCS: 36415; 80053; 81001; 83690; 85025; 87086; 87088; 87637; 96361; 96365; 96375; 99284; A9270; J0696; J1200; J2765; J7030

== ENCOUNTER 2024-05-29 06:28 | Inpatient (IN) | payer OTHER, MEDICAID, SELFPAY ==
[2024-05-29] VITALS (208 sets, daily range): BP systolic 83–157; BP diastolic 47–142; PULSE 77–254; RESP 18; TEMP 36.4–37.1; O2SAT 89–100; BMI 35.2
--- NOTE | 2024-05-29 07:15 | LDADM ---
This patient, Danielle Leal, was admitted to Labor/Delivery/Recovery 107 on 05/29/24 at 06:28. Plans for labor, pain management and were discussed with patient. Patient/family oriented to hospital policies and general routines including ID bracelet, bed and alarms, visiting hours, pain management, procedures, bathroom and other care routines, personal items, smoking policy, room service/diet and guest tray routines, security routines, and visiting hours. Patient/Family are encouraged to report perceived risks to care and to ask questions if they do not understand what they are told or what they should do. See OBIX for further documentation.
[2024-05-29 07:53] LABS: Basophils Percent Auto 0.4 % (0.2-1.2); Eosinophils Absolute Auto 0.2 K/mm3 (0-0.3); Eosinophils Percent Auto 1.9 % (0-4.4); Hematocrit 32.9 % (37.0-47.0); Hemoglobin 10.9 g/dL (12.0-15.0); Immature Granulocyte Absolute 0.07 K/mm3 (0.00-0.031); Immature Granulocyte Percent A 0.9 % (0-0.5); Lymphocytes Absolute Auto 2.08 K/mm3 (0.9-3.2); Lymphocytes Percent Auto 26.8 % (18.3-44.2); Mean Corpuscular HGB Conc 33.1 g/dl (32-36); Mean Corpuscular Hemoglobin 27.5 pg (26-34); Mean Corpuscular Volume 82.9 fl (80-100); Mean Platelet Volume 10.4 fl (7.4-10.4); Monocytes Absolute Auto 0.6 K/mm3 (0.1-0.6); Monocytes Percent Auto 7.6 % (2.6-8.5); Neutrophils Absolute Auto 4.8 K/mm3 (1.3-6.7); Neutrophils Percent Auto 62.4 % (45.5-73.1); Platelet Count Result 251 k/mm3 (150-375); Red Blood Count 3.97 M/mm3 (4.2-5.4); Red Cell Distribution Width 14.6 % (11.5-14.5); White Blood Count 7.8 K/mm3 (4.5-10.0)
[2024-05-29 08:19] LABS: HIV 1/2 Ab P24 Ag Result Negative (Negative)
[2024-05-29] MEDS: LACTATED RINGERS 1,000 ML 125 ML IV CONT ×3 (08:20→14:06)
[2024-05-29] MEDS: OXYTOCIN 30 UNITS/NS 500 ML 30 UNITS/500 ML BAG IV CONT (08:20)
[2024-05-29 08:41] LABS: Rapid Plasma Reagin Non-Reactive (NonReactive)
--- NOTE | 2024-05-29 13:24 | WPDANESEPP ---
Anes - Eval Pre Procedure Procedure: Labor epidural Date/Time: 05/29/24 13:24 Surgeon: Denilson Preop Diagnosis: pain during labor Pre Op Diagnosis: IOL Patient Data Age: 23 Gender: F Height: 1.63 m Weight: 93 kg Last Vital Signs Temp 36.6 C 05/29/24 12:11 Pulse 78 05/29/24 13:16 BP 121/70 05/29/24 13:16 Pulse Ox 99 05/29/24 13:22 O2 Del Method Room Air 05/29/24 07:21 Allergies Allergy/AdvReac Type Severity Reaction Status Date / Time No Known Allergies Allergy Verified 05/29/24 07:34 Home Medications Medication Instructions Recorded Confirmed Type ferrous sulfate 325 mg (65 mg 325 mg PO DAILY 05/12/24 05/12/24 History iron) tablet vits no.126-ferrous fum 1 tablet PO DAILY 05/12/24 05/12/24 History 28 mg iron-folic acid 800 mcg tablet (Classic ) Laboratory Tests 05/29/24 07:10 WBC 7.8 K/mm3 (4.5-10.0) RBC 3.97 L M/mm3 (4.2-5.4) Hgb 10.9 L g/dL (12.0-15.0) Hct 32.9 L % (37.0-47.0) MCV 82.9 fl (80-100) MCH 27.5 pg (26-34) MCHC 33.1 g/dl (32-36) RDW 14.6 H % (11.5-14.5) Plt Count 251 k/mm3 (150-375) MPV 10.4 fl (7.4-10.4) Immature Gran % (Auto) 0.9 H % (0-0.5) Neut % (Auto) 62.4 % (45.5-73.1) Lymph % (Auto) 26.8 % (18.3-44.2) [place] % (Auto) 7.6 % (2.6-8.5) Eos % (Auto) 1.9 % (0-4.4) Baso % (Auto) 0.4 % (0.2-1.2) Lymph # (Auto) 2.08 K/mm3 (0.9-3.2) [place] # (Auto) 0.6 K/mm3 (0.1-0.6) Eos # (Auto) 0.2 K/mm3 (0-0.3) Baso # (Auto) 0.0 K/mm3 (0.0-0.1) Abs Immat Gran (auto) 0.07 H K/mm3 (0.00-0.031) Absolute Neuts (auto) 4.8 K/mm3 (1.3-6.7) Absolute Nucleated RBC 0.000 K/mm3 (0.0-0.012) Nucleated RBC % 0.0 % (0.0-0.2) RPR Non-reactive (NonReactive) HIV 1&2 Ab/P24 Ag 4thGn Negative (Negative) Blood Type A Positive Antibody Screen Negative Patient hx anesthesia problems: none Family hx anesthesia problems: none Results Review: All pre-operative results and documents have been reviewed as part of the pre-operative evaluation. [facility] Past Medical History Medical History No pertinent past medical history Surgical History Surgical History No history of previous surgery Family History Family History Other No pertinent family history Social History Social History Smoking status: Never smoker Second hand tobacco smoke exposure: No Alcohol intake: current Substance use: never Substance use type: marijuana Last use: Dec 2021 Do You Feel Safe in your Home?: Yes Lack of Transportation: No Lack of Food: Never True Current Housing: I Do Not Have Housing Concerned About Future Housing: No Difficulty Paying Gas/Electric Bills: No Difficulty Paying for Meds: No Currently Unemployed: No Education: High School Diploma/GED Difficulty w/ Childcare or Family Care: No Gender identity (if verbalized by the patient): Female Spiritual care concerns: No Exam Day of Procedure 05/29/24 13:24 Patient weight: obese Heart: regular rate and rhythm Lungs: clear to auscultation Airway: Mallampati scale class II Neurological: alert and oriented
--- NOTE | 2024-05-29 17:40 | PM.IMHP ---
H&P: HPI History of Present Illness Date/Time: 05/29/24 08:00 Chief Complaint: elective induction of labor Narrative: Patient is a 23 year old who presents for elective induction of labor. Her has been uncomplicated. She denies strong contractions, LOF, or vaginal bleeding. Good movement. Review of Systems Review of Systems: All systems reviewed & are unremarkable except as noted in HPI and below PMFSH Past Medical History Medical History No pertinent past medical history Surgical History Surgical History No history of previous surgery Family History Family History Other No pertinent family history Social History Social History Smoking status: Never smoker Second hand tobacco smoke exposure: No Alcohol intake: current Substance use: never Substance use type: marijuana Last use: Dec 2021 Do You Feel Safe in your Home?: Yes Lack of Transportation: No Lack of Food: Never True Current Housing: I Do Not Have Housing Concerned About Future Housing: No Difficulty Paying Gas/Electric Bills: No Difficulty Paying for Meds: No Currently Unemployed: No Education: High School Diploma/GED Difficulty w/ Childcare or Family Care: No Gender identity (if verbalized by the patient): Female Spiritual care concerns: No Meds Home Medications and Allergies Home Medications Medication Instructions Recorded Confirmed Type ferrous sulfate 325 mg (65 mg 325 mg PO DAILY 05/12/24 05/12/24 History iron) tablet vits no.126-ferrous fum 1 tablet PO DAILY 05/12/24 05/12/24 History 28 mg iron-folic acid 800 mcg tablet (Classic ) Allergies Allergy/AdvReac Type Severity Reaction Status Date / Time No Known Allergies Allergy Verified 05/29/24 07:34 Vital Signs Vital Signs - 24 hr 05/29/24 06:53 05/29/24 06:55 05/29/24 07:00 Temperature Pulse Rate 100 Blood Pressure 116/73 Pulse Oximetry 98 98 98 Oxygen Delivery 05/29/24 07:01 05/29/24 07:05 05/29/24 07:10 Temperature Pulse Rate 119 H Blood Pressure 117/79 Pulse Oximetry 99 97 Oxygen Delivery 05/29/24 07:31 05/29/24 07:46 05/29/24 07:49 Temperature Pulse Rate 103 H 95 Blood Pressure 119/77 117/78 Pulse Oximetry 98 Oxygen Delivery 05/29/24 07:54 05/29/24 07:59 05/29/24 08:01 Temperature Pulse Rate 97 Blood Pressure 119/75 Pulse Oximetry 97 97 Oxygen Delivery 05/29/24 08:04 05/29/24 08:09 05/29/24 08:14 Temperature Pulse Rate Blood Pressure Pulse Oximetry 96 98 97 Oxygen Delivery 05/29/24 08:16 05/29/24 08:19 05/29/24 08:24 Temperature Pulse Rate 104 H Blood Pressure 133/70 Pulse Oximetry 98 98 Oxygen Delivery 05/29/24 08:29 05/29/24 08:31 05/29/24 08:34 Temperature Pulse Rate 96 Blood Pressure 125/68 Pulse Oximetry 98 99 Oxygen Delivery 05/29/24 08:40 05/29/24 08:45 05/29/24 08:46 Temperature Pulse Rate 94 Blood Pressure 112/69 Pulse Oximetry 98 98 98 Oxygen Delivery 05/29/24 08:15 05/29/24 08:51 05/29/24 08:56 Temperature 97.6 F Pulse Rate Blood Pressure Pulse Oximetry 99 99 Oxygen Delivery 05/29/24 09:01 05/29/24 09:06 05/29/24 09:11 Temperature Pulse Rate 104 H Blood Pressure 120/74 Pulse Oximetry 99 99 98 Oxygen Delivery 05/29/24 09:16 05/29/24 09:21 05/29/24 09:26 Temperature Pulse Rate 99 Blood Pressure 121/71 Pulse Oximetry 98 99 98 Oxygen Delivery 05/29/24 09:31 05/29/24 09:36 05/29/24 09:41 Temperature Pulse Rate 94 Blood Pressure 120/75 Pulse Oximetry 98 98 99 Oxygen Delivery 05/29/24 09:46 05/29/24 09:51 05/29/24 09:56 Temperature Pulse
--- NOTE | 2024-05-29 17:44 | PM.OBPRVD ---
OB - Vaginal Delivery Note Procedure Delivery date: 05/29/24 Events: Elective Induction of Labor Induction method: AROM Delivery augmentation: Pitocin Delivery monitor: External FHT and External Uterine Route of delivery: Episiotomy description: None Laceration Description: None Specimen: No Quantitative Blood Loss (ml): 100 Anesthesia type: Epidural Disposition: Floor Complications: No immediate complications Narrative: See H&P and notes for details on patient's admission and labor. She progressed to complete cervical dilation and at the appropriate time began pushing. With adequate expulsive efforts by the mother, the baby's head was delivered without difficulty. Nuchal cord was not present. The baby's right shoulder was anterior and delivered under the pubic symphysis without difficulty. The posterior shoulder and the rest of the baby delivered without difficulty. The umbilical cord was doubly clamped and cut after 60 seconds of delayed cord clamping. Care of the was then assumed by the nursing staff. Baby Date of : 05/29/24 Weeks of gestation at delivery: 39 Infant gender: Female Weight (pounds): 8 Weight (ounces): 7 presentation: vertex position: Left Occiput Anterior Placenta delivery description: Expressed Cord Vessel Description: 3 Vessels and Delayed Cord Clamping
[2024-05-29] MEDS: OXYTOCIN 30 UNITS/NS 500 ML 30 UNITS/500 ML BAG 125 UNITS IV CONT (17:55)
--- NOTE | 2024-05-29 20:00 | OBPPTRN ---
Patient transferred to post room #283 via wheelchair. Support person present. Oriented to unit, room, information board, rooming in, admission packet and security measures. Patient verbalizes understanding.
[2024-05-29] MEDS: ACETAMINOPHEN 325 MG TABLET 650 MG PO (21:50)
[2024-05-29] MEDS: IBUPROFEN 600 MG TABLET PO (21:50)
[2024-05-30 05:00] VITALS: BP 122/70; PULSE 83; RESP 14; TEMP 36.4; O2SAT 100
[2024-05-30 05:18] LABS: Hemoglobin 9.6 g/dL (12.0-15.0)
[2024-05-30] MEDS: IBUPROFEN 600 MG TABLET PO ×3 (07:40→21:28)
[2024-05-30] MEDS: ACETAMINOPHEN 325 MG TABLET 650 MG PO ×3 (07:40→21:28)
[2024-05-30] MEDS: POLYSACCHARIDE IRON COMPLEX 150 MG CAPSULE PO (07:42)
[2024-05-30] MEDS: DOCUSATE SODIUM 100 MG CAPSULE PO (07:42)
[2024-05-30 08:05] VITALS: BP 119/86; PULSE 86; RESP 18; TEMP 36.5; O2SAT 100
--- NOTE | 2024-05-30 09:37 | PCCCNOTE ---
Recvd consult due to pt. scoring high on the OB Substance Abuse Screening. Met with pt. and GIOVANI Forrester at bedside. Pt. reports used THC recreationally during to help her sleep. Pt. denied need for substance abuse resources. Pt. reports she will be living in [place] with GIOVANI Forrester, Usama's sister, pt's 2 year old daughter, and baby girl at home. Pt. reports her father Bartolo, both sides of grandparents are supportive. Pt. reports has baby supplies and states not interested in WIC or Food [place] at this time. Pt. denies prior DCFS involvement. resources provided to pt. SMITH sifuentes.
[2024-05-30 12:23] VITALS: BP 113/61; PULSE 72; RESP 16; TEMP 37.1; O2SAT 98
--- NOTE | 2024-05-30 12:48 | PM.OBPNVD ---
OB - PN: Subj Subjective Date/time seen: 05/30/24 12:48 Interval history: PPD#1 Doing well, pain controlled Voiding without issue Ready for discharge home OB - PN: Obj Data Labs 05/30/24 05:12 Labs: Laboratory Results - last 24 hr 05/30/24 05:12 Hgb 9.6 L Hct 29.0 L OB - PN A/P Assessment and Plan (1) (spontaneous vaginal delivery): Code(s): O80 - Encounter for full-term uncomplicated delivery Status: Acute Plan day: 1 Plan: routine care and discharge home Time Spent With Patient Time: Total time spent is greater than 50% in coordination of care (as documented) at patient's floor/unit and/or counseling patient: Review of Systems Review of Systems: All systems reviewed & are unremarkable except as noted in HPI and below Exam Const: General: comfortable and no acute distress Resp: Effort & Inspection: normal respiratory effort
--- NOTE | 2024-05-30 12:51 | PM.OBDSVD ---
DS: Admitting Diagnosis Discharge Date 05/30/24 Admitting Diagnosis Elective induction of labor DS: Discharge Diagnosis Discharge Diagnosis (1) (spontaneous vaginal delivery): Code(s): O80 - Encounter for full-term uncomplicated delivery Status: Acute OB - DS: Summary OB Procedures : None OB Procedures Intrapartum: Spontaneous Vag Delivery OB Procedures: : None Peripartum Data Laceration Description: None Episiotomy description: None Time Spent with Patient Time attestation: Total time spent providing and/or coordinating discharge services: DS: Data Data Completed and Pending Labs on day of discharge: Labs from last 24 hours 05/30/24 05:12 Hgb 9.6 L Hct 29.0 L Discharge Plan Discharge Attending physician on discharge: Dino Oreilly Discharging Clinician: Dino Oreilly Patient Disposition: Home, Self-Care Activity: may shower, as tolerated and pelvic rest Diet: as tolerated Patient Instructions: Antibiotic Form Stand Alone Forms: General Discharge Information Follow-up/Referrals: Dino Oreilly MD [Physician] - 4 Weeks Discharge Medications: New docusate sodium 100 mg Capsule 100 mg PO BID PRN (Reason: Constipation) Qty: 60 0RF ibuprofen 600 mg Tablet 600 mg PO Q6H PRN (Reason: Cramping) Qty: 30 0RF Continued ferrous sulfate 325 mg (65 mg iron) Tablet 325 mg PO DAILY Classic 28 mg iron- 800 mcg Tablet 1 tablet PO DAILY Date of admission: 05/29/24 06:28 Primary Care Provider: Virgil Salmon Admitting Provider: Dino Oreilly Attending physician on admission: Dino Oreilly Condition: Stable
--- NOTE | 2024-05-30 14:25 | WPDANLDPN2 ---
Anes-Prog Note L&D Date/Time: 05/30/24 14:25 Comfortable throughout: labor and delivery Neuraxial method: epidural Epidural/Spinal procedure site: clean & non-tender Neuro status: Neuro function grossly intact. Cardiovascular status: normal Respiratory status: normal Airway patency: baseline Mental status: baseline Post-Op hydration status: normal Vital Signs: Last Vital Signs Temp 37.1 C 05/30/24 12:23 Pulse 72 05/30/24 12:23 Resp 16 05/30/24 12:23 BP 113/61 05/30/24 12:23 Pulse Ox 98 05/30/24 12:23 O2 Del Method Room Air 05/30/24 05:00 Pain score (VAS): 11/23 I/O: Intake & Output 05/29/24 05/30/24 05/30/24 23:59 07:59 15:59 Intake Total 400 Output Total 390 Balance 10 Post-procedural complaints: none Patient feedback: Patient satisfied with anesthetic care.
[2024-05-30 20:00] VITALS: BP 115/79; PULSE 78; RESP 16; TEMP 36.7; O2SAT 100
[2024-05-30 22:45] VITALS: BP 117/76; PULSE 68; RESP 20; O2SAT 100
--- NOTE | 2024-05-30 23:00 | PC.NURSE ---
Patient's support person approached nurses station stating that he believes that the patient is experiencing anxiety and needs fresh air. Upon entering room, patient was tearful and states that her grandfather the day she delivered her baby, her delivery was a lot and she misses her other child. She believes everything is just hitting her all at once emotionally. Patient requested some fresh air. [facility] and remained in the nursery. Once patient was back on unit, she decided to allow to remain in the nursery so she is able to get some rest.
--- NOTE | 2024-05-31 08:51 | PM.OBPNVD ---
OB - PN: Subj Subjective Date/time seen: 05/31/24 08:51 Interval history: PPD#1 Doing well, pain controlled Voiding without issue Ready for discharge home Patient comments: no complaints, pain well controlled and tolerating diet OB - PN: Obj Data Labs 05/30/24 05:12 OB - PN A/P Plan day: 2 Plan: routine care and discharge home Time Spent With Patient Time: Total time spent is greater than 50% in coordination of care (as documented) at patient's floor/unit and/or counseling patient: Exam Const: General: comfortable and no acute distress Resp: Effort & Inspection: normal respiratory effort Auscultation: no rales, no rhonchi and no wheezes Cardio: Rate: regular rate Heart sounds: no click, no murmurs and no rubs GI: GI Palp: Yes Soft to palpation and No Tenderness to palpation present (GI) Auscultation: normal bowel sounds Extrem: General: normal to inspection, no pedal edema and no calf tenderness
--- NOTE | 2024-05-31 08:51 | PM.OBDSVD ---
DS: Admitting Diagnosis Discharge Date May 31 2024 Admitting Diagnosis term DS: Discharge Diagnosis Discharge Diagnosis (1) (spontaneous vaginal delivery): Code(s): O80 - Encounter for full-term uncomplicated delivery Status: Acute OB - DS: Summary OB Procedures : None OB Procedures Intrapartum: Spontaneous Vag Delivery OB Procedures: : None Peripartum Data Laceration Description: None Episiotomy description: None Time Spent with Patient Time attestation: Total time spent providing and/or coordinating discharge services: Discharge Plan Discharge Attending physician on discharge: Dino Oreilly Discharging Clinician: Dino Oreilly Patient Disposition: Home, Self-Care Activity: may shower, as tolerated and pelvic rest Diet: as tolerated Patient Instructions: Antibiotic Form Stand Alone Forms: General Discharge Information Follow-up/Referrals: Dino Oreilly MD [Physician] - 4 Weeks Discharge Medications: New docusate sodium 100 mg Capsule 100 mg PO BID PRN (Reason: Constipation) Qty: 60 0RF ibuprofen 600 mg Tablet 600 mg PO Q6H PRN (Reason: Cramping) Qty: 30 0RF Continued ferrous sulfate 325 mg (65 mg iron) Tablet 325 mg PO DAILY Classic 28 mg iron- 800 mcg Tablet 1 tablet PO DAILY Date of admission: 05/29/24 06:28 Primary Care Provider: Virgil Salmon Admitting Provider: Dino Oreilly Attending physician on admission: Dino Oreilly Condition: Stable
[2024-05-31 09:00] VITALS: BP 128/81; PULSE 66; RESP 18; TEMP 36.7; O2SAT 100
[2024-05-31] MEDS: POLYSACCHARIDE IRON COMPLEX 150 MG CAPSULE PO (09:10)
[2024-05-31] MEDS: IBUPROFEN 600 MG TABLET PO (09:11)
[2024-06-01 11:34] VITALS: BP 116/71; PULSE 79; RESP 18; TEMP 36.8; O2SAT 99
== END 2024-05-31 10:46 | disposition home or self-care (01) | DRG 807 ==
LOC: ANHLDR 06:33 → ANHOB2 20:06
PROVIDERS: Admitting Provider Obstetrics & Gynecology; PCP Family Medicine Adolescent Medicine; Visit Provider Obstetrics & Gynecology
DX: O80 Encounter for full-term uncomplicated delivery (principal); Z37.0 Single live birth; Z3A.39 39 weeks gestation of pregnancy
CPT/HCPCS: 36415; 85014; 85018; 85025; 86592; 86703; 86850; 86900; 86901; A9270; G0432; J2590; J2795; J7120

== ENCOUNTER 2025-01-23 18:13 | Emergency (ER) | payer OTHER, MEDICAID, SELFPAY ==
[2025-01-23 18:23] VITALS: BP 130/77; PULSE 80; RESP 16; TEMP 36.9; O2SAT 99
--- NOTE | 2025-01-23 18:24 | ED_ITS ---
HPI - URI/Sore Throat General Chief Complaint: Unspecified Stated Complaint: SOB/Body Shakes Time Seen by Provider: 01/23/25 18:24 Source: patient Mode of arrival: ambulatory Limitations: no limitations History of Present Illness HPI Narrative: 24 yo F presents with c/o episodes of palpitations for the past 1.5 months. Palpitations only last a few minutes. No CP or SOB. Sometimes make her feel hot and sweaty. No dizziness. 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 Also think smoking marijuana brings on palpitation episodes. Has tried to cut back on marijuana and does notice improvement in palpitations. No N/V. Saw her PCP 12/24. States that she mentioned to the nurse at the office that took her VS that she was having the episodes. States nurse checked her HR with pulse ox and told her it was fine. Pt never mentioned palpitations to her PCP. Pt is well appearing. No palpitations today. States she told her mom about the palpitations and was told she needed at EKG. All systems reviewed and negative except as noted above. Related Data Allergies Allergy/AdvReac Type Severity Reaction Status Date / Time No Known Allergies Allergy Verified 01/23/25 18:15 Review of Systems Review of Systems: CONSTITUTIONAL: Denies fever, chills, or sweats. EYES: Denies visual changes, redness, or discharge. ENT: Denies rhinorrhea, congestion, sore throat, or otalgia. CARDIOVASCULAR: Denies chest pain . Reports palpitations. Denies edema. RESPIRATORY: Denies cough or dyspnea. GASTROINTESTINAL: Denies abdominal pain, nausea, vomiting, or diarrhea. GENITOURINARY: Denies dysuria or hematuria. SKIN: Denies rash or itching. MUSCULOSKELETAL: Denies back pain, joint pain, or myalgia. NEUROLOGIC: Denies headache, numbness, or weakness. PSYCHIATRIC: Denies anxiety or depression. All other systems reviewed are negative, except as documented in HPI. [facility] Past Medical History Medical History No pertinent past medical history Surgical History Surgical History No history of previous surgery Family History Family History Other No pertinent family history Social History Social History Smoking status: Never smoker Second hand tobacco smoke exposure: No Alcohol intake: current Substance use: never Substance use type: marijuana Last use: Dec 2021 Do You Feel Safe in your Home?: Yes Lack of Transportation: No Lack of Food: Never True Current Housing: I Do Not Have Housing Concerned About Future Housing: No Difficulty Paying Gas/Electric Bills: No Difficulty Paying for Meds: No Currently Unemployed: No Education: High School Diploma/GED Difficulty w/ Childcare or Family Care: No Gender identity (if verbalized by the patient): Female Spiritual care concerns: No Comments At time of signature, agree with nursing past medical, surgical, social and family history. There is no relevant family history pertinent to the presenting complaint. Exam Narrative: GENERAL: This is a well-nourished, well-developed patient, in no apparent distress. HEAD: normocephalic, atraumatic. EYES: PERRL. Sclera clear/white. Vision is grossly intact. EARS: External ears normal, auditory canals clear and without drainage, TMs nor mal without perforation. Hearing grossly intact. NOSE: External nose normal with no obvious nasal discharge, nares without redness, no rhinorrhea. THROAT: Mucous membranes moist, posterior pharynx clear. NECK: Neck supple, non-tender without lymphadenopathy, masses or thyromegaly. CARDIOVASCULAR: Regular rate and rhythm without murmurs, gallops, or rubs. RESPIRATORY: Clear to auscultation. Breath sounds equal bilaterally. No wheezes, rales, or rhonchi. SKIN: warm, Dry, intact with no suspicious lesions or rash, good texture and turgor. NEURO: awake, alert, and oriented to person, place and time. There were no obvious focal neurologic abnormalities. EXTREMITIES: No joint tenderness, effusion, or edema noted. Course Course Level of Care: Express Care Visit Vital Signs Vital signs: Vital Signs Temperature 36.9 C 01/23/25 18:23 Pulse Rate 80 01/23/25 18:23 Respiratory Rate 16 01/23/25 18:23 Blood Pressure 130/77 01/23/25 18:23 Pulse Oximetry 99 01/23/25 18:23 Oxygen Delivery Room Air 01/23/25 18:23 Temperature 36.9 C 01/23/25 18:23 Pulse Rate 80 01/23/25 18:23 Respiratory Rate 16 01/23/25 18:23 Blood Pressure 119/85 01/23/25 18:47 Pulse Oximetry 99 01/23/25 18:23 Oxygen Delivery Room Air 01/23/25 18:23 reviewed MDM - URI/Sore Throat MDM Narrative Medical decision making narrative: EKG HR 82, sinus rhythm with sinus arrythmia, incomplete right bundle, no ischemia. pt not experiencing at CP, SOB or palpitations while at [facility]. she has never had CP or SOB with her episodes. Orthostatic VS normal. I walked pt up and down hallway with pulse ox and her HR was 100 to 104, she experienced no palpitations. I explained to pt that we are not able to complete any lab work at [facility]. I offered to send her to the ER for further evaluation but she did no feel was necessary. she will call her PCP tomorrow for appt. she is well appearing, nontoxic. normal VS. will go to the ER for any worsening of symptoms. i recommended that she stop smoking marijuana and she stated it brought on palpitations. Please be advised this is a medical document. It is intended for jjoh-mk-wria communication. It is written in medical language and may contain unfamiliar abbreviations or verbiage. Medical documents are intended to carry relevant information, facts as evident, and the clinical opinion of the practitioner at the time of the encounter. This report may have been done utilizing a voice recognition system. Attempts have been made to correct errors. However, there may be uncorrected grammatical, spelling, and recognition errors present. The file time of this note does not necessarily represent the time of service. Discharge Plan Discharge Clinical Impression: Heart palpitations Patient Disposition: Home, Self-Care Condition: Stable Instructions: Heart Palpitations (ED) Additional Instructions: Your EKG showed a sinus rhythm with sinus arrhythmia. Your orthostatic vital signs were normal. Stop smoking marijuana to see if this decreases or stops your episodes of palpitations. Follow up with your doctor for further evaluation of your symptoms. If you have chest pain, shortness of breath or palpitations that don't improve with rest GO TO THE ER. Patient Language: Georgian Prescriptions: No Action triamcinolone acetonide 0.1 % cream 1 applic topical BID PRN (Reason: eczema ) Qty: 80 0RF Rx Instructions: Apply once or twice daily to affected areas for 2 to 4 weeks. You may need intermittent application once daily for 2 days per week for maintenance. Follow-up/Referrals: Virgil Salmon MD [Primary Care Provider] - [facility] Time of Disposition: 18:54
--- NOTE | 2025-01-23 18:32 | ECG_ITS ---
Test Date: 2025-01-23 18:42:41 Measurements Intervals [place] Rate: 82 P: 44 ND: 145 QRS: 21 QRSD: 118 T: 33 QT: 349 QTc: 410 Interpretive Statements SINUS RHYTHM WITH MARKED SINUS ARRHYTHMIA INCOMPLETE RIGHT BUNDLE BRANCH BLOCK [90+ ms QRS DURATION, TERMINAL R IN V1/V2, 40+ ms S IN I/aVL/V4/V5/V6] No previous ECG available for comparison Electronically Signed On 01-24-2025 13:58:24 CDT by Jet Guerra M.D.
[2025-01-23 18:46] VITALS: BP 118/76; BP 144/77
[2025-01-23 18:47] VITALS: BP 119/85
== END 2025-01-23 18:59 | disposition home or self-care (01) ==
PROVIDERS: Emergency Provider Nurse Practitioner Family; PCP Family Medicine Adolescent Medicine
DX: R00.2 Palpitations (principal); F12.90 Cannabis use, unspecified, uncomplicated
CPT/HCPCS: 93005; 99213; G0463

== ENCOUNTER 2025-01-24 10:25 | Emergency (ER) | payer OTHER, MEDICAID, SELFPAY ==
[2025-01-24] VITALS (10 sets, daily range): BP systolic 120–126; BP diastolic 69–101; PULSE 71–96; RESP 16–34; TEMP 36.3; O2SAT 96–99
--- NOTE | ~2025-01-24 | XR_ITS ---
Clinical Indication: Palpitations PA and lateral views of the chest: Comparison: 10/02/2018 Findings: The lungs are clear, without evidence of focal consolidation or pleural effusion. Cardiome diastinal silhouette is within normal limits. Bones and soft tissues are unremarkable. Impression: Normal chest. Reviewed, dictated and finalized at location . Impression: Normal chest.
--- NOTE | 2025-01-24 10:28 | ECG_ITS ---
Test Date: 2025-01-24 10:31:38 Measurements Intervals [place] Rate: 66 P: 14 WI: 134 QRS: 27 QRSD: 87 T: 21 QT: 372 QTc: 390 Interpretive Statements SINUS RHYTHM WITH SINUS ARRHYTHMIA INCOMPLETE RIGHT BUNDLE BRANCH BLOCK Compared to ECG 01/23/2025 18:42:41 NO SIGNIFICANT CHANGES Electronically Signed On 01-25-2025 16:37:00 CDT by Leslie Lin M.D.
[2025-01-24 11:39] LABS: BEDSIDEPREGUCG Negative (Negative)
--- NOTE | 2025-01-24 11:43 | ED.ARRPALP ---
HPI - Arrhythmia/Palpitations General Chief Complaint: Arrhythmia/Palpitations Stated Complaint: palpitations Time Seen by Provider: 01/24/25 11:04 History of Present Illness HPI narrative: 24-year-old female presents to the emergency department for palpitations for several years, worsening over the past couple of months. Patient states it feels like her heart is racing. States her symptoms seem worse when she picks up her kids toys and picks up her kid. Palpitations also worse with smoking marijuana. She states when the palpitations occur to become short of breath and feels shaky in her hands and feet. She denies anxiety but states yesterday when she called her mom to tell her mom her symptoms her mom told her that it sounded like she was having a panic attack. The patient states she has intermittent left lateral rib pain and sternal pain but states that she works out and is attributing this to working out. She denies lower extremity edema, history of VTE, hemoptysis, recent surgeries or hospitalizations. She is not on control. She has not seen plastic injection mold maker or primary for her palpitations. Denies family history of sudden cardiac arrest or sudden . Related Data Allergies Allergy/AdvReac Type Severity Reaction Status Date / Time No Known Allergies Allergy Verified 01/24/25 10:52 Review of Systems Review of Systems: All systems reviewed & are unremarkable except as noted in HPI and below PMFSH Past Medical History Medical History No pertinent past medical history Surgical History Surgical History No history of previous surgery Family History Family History Other No pertinent family history Social History Social History Smoking status: Never smoker Second hand tobacco smoke exposure: No Alcohol intake: current Substance use: never Substance use type: marijuana Last use: Dec 2021 Do You Feel Safe in your Home?: Yes Lack of Transportation: No Lack of Food: Never True Current Housing: I Do Not Have Housing Concerned About Future Housing: No Difficulty Paying Gas/Electric Bills: No Difficulty Paying for Meds: No Currently Unemployed: No Education: High School Diploma/GED Difficulty w/ Childcare or Family Care: No Gender identity (if verbalized by the patient): Female Spiritual care concerns: No Exam Narrative: GENERAL: Well-appearing, well-nourished, and in no acute distress. Anxious appearing HEAD: Normocephalic, atraumatic. EYES: PERRLA and EOMI. ENT: Nares clear, no rhinorrhea or epistaxis. Mucous membranes moist. NECK: Supple. CHEST: Clear to auscultation. No respiratory distress. Tenderness to the sternum and left costosternal border with no overlying skin changes or deformities HEART: Regular rate and rhythm. No murmur heard. Normal peripheral pulses. ABDOMEN: Soft, nontender, nondistended, normal active bowel sounds. EXTREMITIES: Normal range of motion. No edema. Negative Homans bilaterally SKIN: Warm, dry, no rash. NEURO: No focal deficits. Alert and oriented x3 Course Vital Signs Vital signs: Vital Signs Temperature 97.3 F L 01/24/25 10:29 Pulse Rate 84 01/24/25 10:29 Respiratory Rate 16 01/24/25 10:29 Blood Pressure 126/101 H 01/24/25 10:29 Pulse Oximetry 98 01/24/25 10:29 Oxygen Delivery Room Air 01/24/25 10:29 Temperature 97.3 F L 01/24/25 10:29 Pulse Rate 71 01/24/25 12:00 Respiratory Rate 21 H 01/24/25 12:00 Blood Pressure 121/93 H 01/24/25 11:31 Pulse Oximetry 97 01/24/25 12:00 Oxygen Delivery Room Air 01/24/25 10:29 MDM - Arrhythmia/Palpitations MDM Narrative Medical decision making narrative: 24-year-old female presents to emergency department for palpitations for several years, worsening over the past few months. See HPI for further history. Vitals are stable. Patient's heart rate has been normal head 70s to 80s while in the ED. She is resting comfortably in exam bed but is anxious appearing. She is reporting some chest pain with this is reproducible on exam. Perc rule is negative. EKG shows sinus rhythm with sinus arrhythmia, normal ID interval, normal QRS duration, normal QTC, no ischemic changes, no evidence of WPW or Brugada. CBC without leukocytosis or anemia. Chemistries without electrolyte derangements. Magnesium within normal limits. is negative. Chest x-ray shows no acute cardiopulmonary findings. Patient updated on results. Suspect component of anxiety a source of palpitations, will provide hydroxyzine for this. Chest pain is atypical in nature and suspect MSK etiology will, will provide ibuprofen for this. Patient was advised follow-up with PCP. She has an appointment on Tuesday which I encouraged her to attend. Also advised her to stop using marijuana as this may be contributing to her symptoms. Return precautions discussed. She is agreeable to plan verbalized understanding. Discharged in stable condition. Lab Data 01/24/25 11:34 01/24/25 11:34 Labs: Lab Results 01/24/25 01/24/25 Range/Units 11:34 11:37 WBC 6.6 (4.5-10.0) K/mm3 RBC 4.87 (4.2-5.4) M/mm3 Hgb 13.4 D (12.0-15.0) g/dL Hct 41.9 (37.0-47.0) % MCV 86.0 (80-100) fl MCH 27.5 (26-34) pg MCHC 32.0 (32-36) g/dl RDW 13.3 (11.5-14.5) % Plt Count 329 (150-375) k/mm3 MPV 10.8 H (7.4-10.4) fl Immature Gran % (Auto) 0.2 (0-0.5) % Neut % (Auto) 61.9 (45.5-73.1) % Lymph % (Auto) 29.4 (18.3-44.2) % [place] % (Auto) 6.2 (2.6-8.5) % Eos % (Auto) 1.5 (0-4.4) % Baso % (Auto) 0.8 (0.2-1.2) % Lymph # (Auto) 1.94 (0.9-3.2) K/mm3 [place] # (Auto) 0.4 (0.1-0.6) K/mm3 Eos # (Auto) 0.1 (0-0.3) K/mm3 Baso # (Auto) 0.1 (0.0-0.1) K/mm3 Abs Immat Gran (auto) 0.01 (0.00-0.031) K/mm3 Absolute Neuts (auto) 4.1 (1.3-6.7) K/mm3 Absolute Nucleated RBC 0.000 (0.0-0.012) K/mm3 Nucleated RBC % 0.0 (0.0-0.2) % PT 13.8 (11.1-14.7) Seconds INR 1.0 APTT 31.5 (22.3-36.8) Seconds Sodium 141 (137-145) mmol/L Potassium 3.9 (3.4-5.0) mmol/L Chloride 105 (98-107) mmol/L Carbon Dioxide 25 (22-30) mmol/L Anion Gap 11 (4-12) mmol/L BUN 11 D (7-17) mg/dL Creatinine 0.70 (0.7-1.0) mg/dL Estim Creat Clear Calc 113 ml/min Estimated GFR > 60 (59 - ) Glucose 106 (65-110) mg/dL Calcium 9.4 (8.4-10.2) mg/dL Magnesium 2.0 (1.6-2.3) mg/dL Total Bilirubin 0.6 (0.2-1.3) mg/dL AST 21 (14-36) U/L ALT 21 (6-35) U/L Alkaline Phosphatase 74 (38-126) U/L Troponin I < 0.012 (0.000-0.034) ng/mL Total Protein 8.0 (6.3-8.2) g/dL Albumin 4.4 (3.5-5.1) g/dL Lipase 40 (23-300) U/L POC Urine HCG, Qual Negative (Negative) Discharge Plan Discharge Clinical Impression: Heart palpitations, Acute chest wall pain Patient Disposition: Home, Self-Care Condition: Stable Instructions: Antibiotic Form, Heart Palpitations (DC), Chest Wall Pain (ED) Additional Instructions: Your evaluated in the emergency department for palpitations and chest pain. Your workup here is reassuring. I suspect her symptoms are secondary to anxiety, please take the hydroxyzine as needed. Your chest pain is consistent with a muscular etiology, take ibuprofen as needed. Follow-up with your PCP at her appointment on Tuesday. Return to the emergency department if you develop new or worsening symptoms. Stop smoking marijuana. Patient Language: Hebrew Prescriptions: New ibuprofen 800 mg tablet 800 mg PO TID PRN (Reason: pain) Qty: 20 0RF hydroxyzine pamoate 50 mg capsule 50 mg PO TID PRN (Reason: anxiety) Qty: 20 0RF No Action triamcinolone acetonide 0.1 % cream 1 applic topical BID PRN (Reason: eczema ) Qty: 80 0RF Rx Instructions: Apply once or twice daily to affected areas for 2 to 4 weeks. You may need intermittent application once daily for 2 days per week for maintenance. Follow-up/Referrals: Binu Mueller DO [Primary Care Provider] - Quality HEART score for chest pain patients History: slightly suspicious ECG: normal Age: < or = to 45 years Risk factors: no risk factors known Troponin: < or = to 1x normal limit Heart score: 0
[2025-01-24 11:54] LABS: Basophils Absolute Auto 0.1 K/mm3 (0.0-0.1); Basophils Percent Auto 0.8 % (0.2-1.2); Eosinophils Absolute Auto 0.1 K/mm3 (0-0.3); Eosinophils Percent Auto 1.5 % (0-4.4); Hematocrit 41.9 % (37.0-47.0); Hemoglobin 13.4 g/dL (12.0-15.0); Immature Granulocyte Absolute 0.01 K/mm3 (0.00-0.031); Immature Granulocyte Percent A 0.2 % (0-0.5); Lymphocytes Absolute Auto 1.94 K/mm3 (0.9-3.2); Lymphocytes Percent Auto 29.4 % (18.3-44.2); Mean Corpuscular Hemoglobin 27.5 pg (26-34); Mean Platelet Volume 10.8 fl (7.4-10.4); Monocytes Absolute Auto 0.4 K/mm3 (0.1-0.6); Monocytes Percent Auto 6.2 % (2.6-8.5); Neutrophils Absolute Auto 4.1 K/mm3 (1.3-6.7); Neutrophils Percent Auto 61.9 % (45.5-73.1); Platelet Count Result 329 k/mm3 (150-375); Red Blood Count 4.87 M/mm3 (4.2-5.4); Red Cell Distribution Width 13.3 % (11.5-14.5); White Blood Count 6.6 K/mm3 (4.5-10.0)
[2025-01-24] MEDS: KETOROLAC 15 MG/ML VIAL (*BKC) IV PUSH (12:03)
[2025-01-24 12:06] LABS: Prothrombin Time 13.8 Seconds (11.1-14.7)
[2025-01-24 12:07] LABS: Partial Thromboplastin Time 31.5 Seconds (22.3-36.8)
[2025-01-24 12:09] LABS: Alanine Aminotransferase 21 U/L (6-35); Albumin Level 4.4 g/dL (3.5-5.1); Alkaline Phosphatase 74 U/L (38-126); Anion Gap 11 mmol/L (4-12); Aspartate Amino Transferase 21 U/L (14-36); Bilirubin,Total 0.6 mg/dL (0.2-1.3); Blood Urea Nitrogen 11 mg/dL (7-17); Calcium 9.4 mg/dL (8.4-10.2); Carbon Dioxide 25 mmol/L (22-30); Chloride 105 mmol/L (98-107); Estimated CRCL calculation 113 ml/min; Estimated Glomerular Filt Rate > 60; Glucose 106 mg/dL (65-110); Lipase 40 U/L (23-300); Potassium 3.9 mmol/L (3.4-5.0); Sodium 141 mmol/L (137-145)
[2025-01-24 12:18] LABS: Troponin I < 0.012 ng/mL (0.000-0.034)
--- OUTSIDE RECORDS SUMMARY | 2025-01-24 13:07 | XMS_ITS | Data Portability ---
Author Organization [facility] [place] Address [address] [place] [address] [place] [address] Care Team Providers Care Horticultural Technical Officer Name Role Phone TWIN FRANKEL Primary Care Provider Assessment No assessment recorded. Plan of Treatment Reminders Order Date Submit Date Provider Last Modified By Organization Details Last Modified Time Details Appointments None recorded. Lab None recorded. Referral None recorded. Procedures None recorded. Surgeries None recorded. Imaging US, obstetric, follow-up 2023 024 [email or web address] [place], [facility] [place] [address], [place], [address], 4 20:41:00 Medication Orders Microgestin Fe 1.5/30 (28) 1.5 mg-30 mcg (21)/75 mg (7) tablet 2023 024 [id number], [address] [facility], [place], [place], [id number], 4 10:41:49 Patient TargetsNo targets recorded. Patient InstructionsNo instructions recorded. Reason for Referral None Reported. Results Created Date Observation Date Name Description Value Unit Range Abnormal Flag Note LastModifiedBy Organization Detail LastModifiedTime 05/08/20 24 05/08/2024 CULTU RE: GROUP B STREP SCREE N result report SEE RESULT S BELOW Test: Cultu re: Group B Strep Scree n - Vagin al/Re ctal Speci men Sourc e: Vagin a/Rec martín Speci men Type: Vagin al/Re ctal Speci men Date: 2023 1718 Resul t Date: 2023 1453 Resul t Statu s: Final resul t Abnor mal: No Resul ting Lab: [facility] [address] [facility] [address] Tel: CULTU RE ----- ----- ----- --- No Group B strep isola my at 2 days (keyanna ctive broth enhan cemen t) Not Available [facility] (Lab) [address], [place], [address], 05/11/2024 15:57:36 05/08/20 24 05/08/2024 US, obste tric, follo w-up No observ ation record ed. [email or web address] [place] [address], [place], [address], 05/08/2024 17:23:07 05/08/20 24 05/08/2024 US, obste tric, follo w-up No observ ation record ed. [email or web address] [place] [address], [place], [address], 05/08/2024 21:40:24 Result Notes None recorded. Problems Name Problem SNOMED Code Status Onset Date Resolution Date Notes Provider Name and Address Organization Details Recorded Time Pregnanc y 22994998 Completed 202107/02/2022 Dolores terrazas [facility] 4 11:50:56 COVID-19 346280607 Completed 2021 ASA QD & serial growth Romana lowery [facility] 2 13:11:51 Anemia 128275773 Completed slowfe BID Romana lowery [facility] 2 13:11:51 Late entry into care 525342188 Completed 01/17/2024 DIANNE OREILLY MD [address], [place], [address], [facility] 4 13:01:10 Anemia 436536837 Completed 01/17/2024 slowfe BID DIANNE OREILLY MD [address], [place], [address], [facility] 4 13:01:22 COVID-19 843870213 Completed 202101/17/2024 ASA QD & serial growth DIANNE OREILLY MD [address], [place], [address], [facility] 4 13:01:04 Late entry into care 671061745 Completed Romana terrazas, [facility] 2 13:11:51 Group B Streptoc occus carrier [id number] 103 Completed 202101/17/2024 DIANNE OREILLY MD [address], [place], [address], [facility] 4 13:01:13 Group B Streptoc occus carrier [id number] 103 Completed 2021 Romana terrazas, [facility] 2 13:11:51 Pregnanc y 02891833 Completed 202306/08/2024 Dolores Antonio null, [facility] 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 4 17:41:12 Problem Notes None recorded. Procedures Surgical History Date Name Laterality Status Provider Name and Address Organization Details Recorded Time 11/14/19 21 termination of completed Ping Chowdary [facility] 05/18/2022 08:59:41 11/14/19 20 termination of completed Ping Chowdary [facility] 05/18/2022 08:59:38 Imaging Results Imaging Date Name Status LastModified by Organiz ation Details LastModified Time 05/08/2024 US, obstetric, follow-up completed [email or web address] [place] [address], [place], [address], 05/08/2024 17:23:07 05/08/2024 US, obstetric, follow-up completed [email or web address] [place] [address], [place], [address], 05/08/2024 21:40:24 Procedure Notes None recorded. Medical Equipment None Reported. Allergies No known drug allergies Medications Name Sig Start Date Stop Date Status Note LastModified by Organization Details LastModified Time amoxicillin 500 mg capsule TAKE 1 CAPSULE BY MOUTH 6 HOURS UNTIL ALL TAKEN. 01/14 completed Not Available Not Available Not Available ibuprofen 800 mg tablet TAKE 1 TABLET BY MOUTH EVERY 8 HOURS NEEDED 01/14 completed Not Available Not Available Not Available ondansetron HCl 4 mg tablet Take 2 tablets twice a day by oral route as needed. 05/08 completed Not Available Not Available Not Available tramadol 50 mg tablet TAKE 1 TABLET BY MOUTH EVERY 4 TO 6 HOURS NEEDED FOR PAIN 01/14 completed Not Available Not Available Not Available amoxicillin 875 mg tablet TAKE 1 TABLET BY MOUTH EVERY 12 HOURS 07/04 completed Not Available Not Available Not Available cephalexin 500 mg capsule TAKE 1 CAPSULE BY MOUTH EVERY 6 HOURS FOR 7 DAYS 03/13 completed Not Available Not Available Not Available oseltamivir 75 mg capsule TAKE 1 CAPSULE BY MOUTH EVERY 12 HOURS FOR 5 DAYS 03/13 completed Not Available Not Available Not Available promethazin e 25 mg tablet 05/08 completed Not Available Not Available Not Available ibuprofen 600 mg tablet TAKE 1 TABLET BY MOUTH EVERY 6 HOURS NEEDED FOR CRAMPING 07/04 completed Not Available Not Available Not Available ondansetron 4 mg disintegrat ing tablet DISSOLVE 1 TABLET ON THE TONGUE EVERY 8 HOURS NEEDED FOR NAUSEA OR VOMITING 04/06 completed Not Available Not Available Not Available metoclopram stephy 10 mg tablet TAKE 1 TABLET BY MOUTH EVERY 6 HOURS NEEDED 05/08 completed Not Available Not Available Not Available 1.5/30 (28) 1.5 mg-30 mcg (21)/75 mg (7) tablet TAKE 1 TABLET BY MOUTH EVERY DAY active Not Available Not Available No t Available nitrofurant oin monohydrate /macrocryst als 100 mg capsule 05/08 completed Not Available Not Available Not Available iron 07/04 completed Not Available Not Available Not Available 07/04 completed Not Available Not Available Not Available Vitals Date Recorded Body height Body mass index (BMI) Systolic blood pressure Diastolic blood pressure Provider Name and Address Organization Details Last Updated DateTime 05/08/2024 162.56 cm 35.2 kg/m2 113 mm[Hg] 77 mm[Hg] Hanna [facility] 05/08/2024 17:10:56 Date Recorded Body weight Provider Name an d Address Organization Details Last Updated DateTime 05/08/2024 [id number] Anastacio Rushing [address], [place], [address], [facility] 05/08/2024 17:32:17 Date Recorded Body height Body mass index (BMI) Systolic blood pressure Diastolic blood pressure Provider Name and Address Organization Details Last Updated DateTime 05/14/2024 162.56 cm 35.5 kg/m2 124 mm[Hg] 84 mm[Hg] [facility] 05/14/2024 16:43:59 Date Recorded Body weight Provider Name an d Address Organization Details Last Updated DateTime 05/14/2024 [id number] Anastacio Rushing [address], [place], [address], [facility] 05/14/2024 16:58:18 Date Recorded Body height Body mass index (BMI) Systolic blood pressure Diastolic blood pressure Provider Name and Address Organization Details Last Updated DateTime 05/21/2024 162.56 cm 35.2 kg/m2 122 mm[Hg] 79 mm[Hg] Hanna Swayne [facility] 05/21/2024 17:21:46 Date Recorded Body weight Provider Name an d Address Organization Details Last Updated DateTime 05/21/2024 18896.12762 g Anastacio LIM [address], [place], [address], [facility] 05/21/2024 17:41:13 Date Recorded Body height Body mass index (BMI) Body weight Systolic blood pressure Diastolic blood pressure Provider Name and Address Organization Details Last Updated DateTime 07/04/2024 162.56 cm 33.2 kg/m2 92754.05 g 115 mm[Hg] 70 mm[Hg] Hanna Gonzalez [facility] 10:35:08 Social History Question Answer Notes LastModified by Organizat ion Details LastModified Time Tobacco Smoking Status Never Smoker Sarah terrazas, [facility] 11/22/2023 09:35:01 Do You Have An Advance Directive? No [email or web address] Information n ot available 01/14/2022 What Is Your Level Of Alcohol Consumption? None [email or web address] Information not available 01/14/2022 If You Are , What Was Your Level Of Alcohol Consumption Prior To ? Occasional [email or web address] Information not available 11/22/2023 Are You Blind Or Do You Have Difficulty Seeing? No [email or web address] Information n ot available 01/14/2022 What Is Your Level Of Caffeine Consumption? Occasional Information not available 01/14/2022 How Much Tobacco Do You Chew? None Information not available 01/14/2022 In The 14 Days Before Symptom Onset, Have You Had Close Contact With A Laboratory-confirm ed COVID-19 While That Case Was Ill? Yes [email or web address] Information n ot available 01/14/2022 In The 14 Days Before Symptom Onset, Have You Had Close Contact With A Person Who Is Under Investigation For COVID-19 While That Person Was Ill? Yes Information not available 01/14/2022 Have You Been To An Area Known To Be High Risk For COVID-19? Yes [email or web address] Information not available 01/14/2022 Are You Deaf Or Do You Have Serious Difficulty Hearing? No [email or web address] Information not available 01/14/2022 What Type Of Diet Are You Following? REGULAR [email or web address] Information n ot available 05/19/2022 What Is The Highest Grade Or Level Of School You Have Completed Or The Highest Degree You Have Received? 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 Yes [email or web address] Information not available 01/14/2022 Do You Use Protection During Sex? No [email or web address] Information not available 01/14/2022 Do You Use Your Seat Belt Or Car Seat Routinely? Yes [email or web address] Information not available 01/14/2022 Do You Have Smoke And Carbon Monoxide Detectors In Your Home? Yes [email or web address] Information not available 01/14/2022 How Much Tobacco Do You Smoke? No [email or web address] Information not available 01/14/2022 Do You Feel Stressed (tense, Restless, Nervous, Or Anxious, Or Unable To Sleep At Night)? [id number] [email or web address] Information not available 01/14/2022 Do You Use Any Illicit Or Recreational Drugs? Yes [email or web address] Information not available 01/14/2022 Do You Use Sunscreen Routinely? No [email or web address] Information not available 01/14/2022 Has Tobacco Cessation Counseling Been Provided? No [email or web address] Information not available 11/22/2023 Have You Used IV Drugs? No [email or web address] Information not available 01/14/2022 Do You Or Have You Ever Used Any Other Forms Of Tobacco Or Nicotine? No [email or web address] Information not available 11/22/2023 Sex: Unknown Functional Status Question Answer Note LastModified by Organizat ion Details LastModified Time Do you have difficulty walking or climbing stairs? No [email or web address] Information not available 11/22/2023 Are you able to walk? YESASSIST [email or web address] Information not available 01/14/2022 Are you able to care for yourself? Yes [email or web address] Information not available 11/22/2023 Do you have difficulty dressing or bathing? No [email or web address] Information not available 11/22/2023 What is your exercise level? Moderate Information not available 01/14/2022 Mental Status None recorded. Family History Relationship Description Onset Age of this Age Resolved Age Notes LastModified by Organization Details LastModified Time Father No current problems or disability [email or web address] Not available 01/14 09:35:29 Mother No current problems or disability [email or web address] Not available 01/14 09:35:29 Medical History Condition Response Allergies (Food, seasonal, environmental ) N Other N Breast Cancer N Drug/Latex Allergies/Reactions N Blood Transfusion N Dermatologic Disorders N Lung Disease Y Defects or Inherited Disease N Breast Problem N Gestational Diabetes N Hematologic disorders N Anesthesia Complications N History of STI N Deep Vein Thrombosis N Polycystic ovary syndrome N Anxiety Disorder N Autoimmune disease N Arthritis N Infertility N Polyps N Acid Reflux (GERD) N History of abnormal pap N Cancer N Stroke N Varicosities N Neurologic/Epilepsy N Endometriosis N High Cholesterol N Headaches N Fibromyalgia N Kidney Disease N Heart Problems N Kidney or Bladder Problems N Thyroid Problems N GI Problems N Eating Disorder N Anemia N Art (IVF or FET) N Psychiatric Illness N Ovarian Cancer N Diabetes N Pulmonary (TB, Asthma) N Hepatitis/Liver Disease N No Past Medical History Y Eczema N Urinary Tract Infection N Abuse/Domestic Violence N Asthma N Trauma/Violence N Depression/ depression N Heart Disease N Pre-Eclampsia N Hypertension N Osteoporosis N Thrombophilias N Gynecological History Statement/Question Response Abnormal Pap N Flow Moderate Date of LMP 07/29/2023 On BCP's at Conception? N N Was last menstrual period normal Y STIs/STDs N HPV Vaccine N Duration of Flow (days) 4 Current Control Method None Are cycles usually normal Y Frequency of Cycle (Q days) 30 Sexually Active? Y Menses Monthly Y Age of first menstrual cycle 14 Date of Last Pap Smear Sexual Problems? N LMP Approximate N Obstetrics History GPAL:G 4 P 2 0 2 2 Type Value Full Term 2 Induced 2 Living 2 Total 4 Past Encounters Encounter ID Performer Location Encounter Start Date Encounter Closed Date Diagnosis/Indication Diagnosis SNOMED-CT Code Diagnosis ICD10 Code Diagnosis Note [id number] Makeda Gunderson [place] [address] [address] 01/14/2022 09:22:02 01/14/2022 10:08:21 test positive [id number] Z32.01 Risk factors addressed: Tobacco Cessation, Safe Sexual Practices, environmen carson, work hazards, travel restrictio ns, seat belt use.Eat a health well balanced diet, avoid alcohol, tobacco, and street drugs.Enga ge in daily low impact exercise, avoid temperatur e extremes, and cat, rodent, and bird feces.Avoi d travel to areas where zika virus is a concern.Of fered cf/sma/nip t. Pt would like to call insurance first. Handouts given and discussed with patient.Ch ildbirth classes recommende d.New OB sheet given.If previous , counseling . Will do bloodwork at next visit so pt can call insurance to check coverage.P t verbalizes that she understand s the importance of above instructio ns.All questions were answered.P atient reminded to have annual well woman examinatio n and address [facility] . [id number] [facility] [address],[place] [address] 01/14/2022 09:22:24 01/14/2022 10:53:01 screening for malformation 541760483 Z36.3 [id number] Randee Carbajal [place] [address],[place] [address] 02/09/2022 15:27:13 02/09/2022 16:35:59 screening 192406130 Z36.2 [id number] Wendy Ruiz MD [place] [address],[place] [address] 02/09/2022 15:44:25 02/09/2022 16:41:49 Routine care 711815982 Z34.91 [id number] [facility] [address],[place] [address] 03/22/2022 12:29:24 03/22/2022 13:05:53 COVID-19 873368073 U07.1 [id number] Wendy Ruiz MD [place] [address],[place] [address] 03/23/2022 09:29:45 03/23/2022 10:10:55 Routine care 284456120 Z34.91 [id number] Wendy Ruiz MD [place] [address],[place] [address] 04/06/2022 15:19:53 04/06/2022 16:07:51 Routine care 072902923 Z34.91 [id number] Randee Carbajal [place] [address],[place] [address] 04/20/2022 13:59:11 04/20/2022 14:50:33 Pre-existing maternal disease complicating 2211355541 6106 O99.891 U07.1 Z86.16 Z3A.31 [id number] Wendy Ruiz MD [place] [address],[place] [address] 04/20/2022 14:02:09 04/20/2022 14:50:57 [id number] Wendy Ruiz MD [place] [address],[place] [address] 05/03/2022 09:44:26 05/03/2022 17:15:45 Routine care 700590064 Z34.91 COVID-19 306318752 U07.1 [id number] [facility] [address],[place] [address] 05/18/2022 09:59:52 05/18/2022 12:54:00 Routine care 940652274 Z34.93 [id number] Elvia Del Angel [place] [address],[place] [address] 05/19/2022 11:06:29 05/21/2022 16:47:12 COVID-19 534132434 U07.1 O99.891 Z3A.36 [id number] Wendy Ruiz MD [place] [address],[place] [address] 05/26/2022 10:01:21 05/28/2022 15:07:25 Routine care 621180369 Z34.91 [id number] Wendy Ruiz MD [place] [address],[place] [address] 06/02/2022 10:23:26 06/02/2022 11:16:14 Group B Streptococcus carrier [id number] 103 Z22.330 Late entry into care 792489622 O09.33 screening 2437 06280 Z36.89 [id number] Wendy Ruiz MD [place] [address],[place] [address] 07/13/2022 16:16:24 07/20/2022 15:51:58 care 229756943 Z39.2 Initial pr escription of oral contraception 994414127 Z30.011 [id number] Elvia Del Angel [place] [address],[place] [address] 10/18/2023 09:30:23 10/18/2023 13:53:25 screening 268087463 Z36.87 Z3A.01 [id number] DIANNE OREILLY MD [place] [address],[place] [address] 10/18/2023 09:30:46 10/18/2023 11:20:39 test positive 995797639 Z32.01 1. Exam today within normal limits.2. Ultrasound today confirms GA and viability. EDC . GC/Clamydi a testing done: will f/u as indicated. 4. ACOG guidelines and plan of care for reviewed with patient. All questions answered.5 . Return to office at 12 weeks for new OB visit6. Will need new OB labs at next visit.7. Genetic screening: [facility]. [id number] [facility] [address],[place] [address] 11/22/2023 09:34:51 11/22/2023 11:02:46 screening 962613236 Z36.82 Z3A.12 [id number] DIANNE OREILLY MD [place] [address] [place] [address] 11/22/2023 09:35:54 11/22/2023 11:30:51 Gestation period, 12 weeks 73259058 Z3A.12 Marijuana user 901516285 F12.90 Nausea and vomiting 1693 2000 R11.2 [id number] DIANNE OREILLY MD [place] [address],[place] [address] 12/20/2023 10:30:20 12/20/2023 11:08:51 Routine care 726015494 Z34.82 [id number] Etta Hassan [place] [address],[place] [address] 01/17/2024 11:28:43 01/17/2024 12:27:14 screening for malformation 524764059 Z36.3 Z3A.20 [id number] DIANNE OREILLY MD [place] [address],[place] [address] 01/17/2024 11:29:05 01/17/2024 13:02:41 Routine care 544843720 Z34.82 [id number] DIANNE OREILLY MD [place] [address],[place] [address] 02/14/2024 09:56:33 02/14/2024 10:43:32 Routine care 576275209 Z34.82 [id number] DIANNE OREILLY MD [place] [address],[place] [address] 03/13/2024 09:56:52 03/13/2024 10:39:05 Past history of with abnormal glucose tolerance test 8907696041 Z87.59 Gestation period, 28 weeks 91658292 Z3A.28 [id number] DIANNE OREILLY MD [place] [address],[place] [address] 04/06/2024 16:25:08 04/07/2024 11:37:10 Routine care 323050047 Z34.83 [id number] DIANNE OREILLY MD [place] [address],[place] [address] 04/18/2024 16:50:19 04/19/2024 03:50:02 Routine care 084917005 Z34.83 [id number] Elvia [facility] [address],[place] [address] 05/08/2024 16:31:59 05/08/2024 17:03:54 Uterine size for dates discrepancy 465144058 O26.843 Z3A.36 [id number] DIANNE OREILLY MD [place] [address],[facility] [place] [address] 05/08/2024 16:42:17 05/08/2024 18:23:42 Routine care 020116885 Z34.83 [id number] DIANNE OREILLY MD [place] [address],[place] [address] 05/14/2024 16:30:33 05/14/2024 17:00:50 Routine care 291474893 Z34.83 [id number] DIANNE OREILLY MD [place] [address],[place] [address] 05/21/2024 17:14:27 05/21/2024 17:45:38 Routine care 747735389 Z34.83 [id number] DIANNE OREILLY MD [place] [address],[place] [address] 07/04/2024 10:14:49 07/05/2024 11:00:58 Initial prescription of oral contraception 603987448 Z30.011 - r/b/a of OCPs discussed with patient- not breastfeed ing- ji care 21474962 8 Z39.2 S/p 4 weeks ago here today for a visit.1. Patient recovering well2. Plans to continue formula feeding3. Interested in OCPs for contracept ion at this time. Risks, benefits, and alternativ es reviewed with the patient4. Patient instructed to follow up in 6-12 months for well woman exam unless need arises prior Health Concerns Section Related Observation LastModified by Organization Detai ls LastModified Time None Recorded Concern Status LastModified by Organization Details LastModified Time None Recorded Advance Directives Directive N: Payers Encounter Date Sequence Insurance Name Policy Number Policy Francisco Covered Member ID Francisco Member ID Guarantor Name 05/08/2024 2 [place] [employer] Danielle Leal [id number] Danielle Leal 05/08/2024 1 R [id number] Danielle Leal [id number] Danielle Leal 05/08/2024 2 [place] [employer] Danielle Leal [id number] Danielle Leal 05/08/2024 1 R [id number] Danielle Bennettmann [id number] Danielle Leal 05/14/2024 2 [place] [facility] Danielle Leal [id number] Danielle Leal 05/14/2024 1 R [id number] [facility] Leal [id number] [facility]/21/2024 2 [place] [facility] Danielle Leal [id number] Danielle Leal 05/21/2024 1 R [id number] Danielle Bennettmann [id number] [facility] 07/04/2024 2 [place] [facility] Danielle Leal [id number] Danielle Leal 07/04/2024 1 R [id number] Danielle Leal [id number] [facility] Notes Date Note Type Note Provider Name and Address Organization Details Recorded Time 07/04/2024 text/html S/P on 05/29 at 39 weeks gestation. was uncomplicated. Complications with delivery: none. Patient denies any specific problems since delivery. Patient overall feeling well. Patient is formula feeding without problems. Has not had a period yet. No bleeding. Bowel and bladder function are normal. Pap due 2026. Denies any signs or symptoms of depression. Is coping with parenting well. Patient has not been sexually active since delivery. Patient is interested in contraception at this time. DIANNE OREILLY MD [address], [place], [address], [facility] 07/05/2024 10:42:47 OBGyn Episode Ob Episode Information Episode Created Date Number of Fetuses Patient Bloodtype Patient rh Status Prepregnancy Weight lbs Domestic Partner Domestic Partner Phone Father Name Lead Java Developer Architect Status 01/15/20 1 CLOSED Fetus Data First Name Last Name Admitted to NICU Weight (g) Sex Living Outcome Pediatric Complications Fetus ID Race Codes Race Delivery Type , Induced [id number] Anshu Calculation Initial Anshu Date Initial Exam Date Initial Exam Provider Initial Ultrasound Date Last Menstrual Period Date Ultra Sound Weeks Gestation 0 Eighteen To Twenty Week Anshu Update Ultra Sound Date Fundal Height At Umbil Quickening Date Ultra Sound Latest Weeks Gestation Final Anshu Confirmed By Final Anshu Confirmed Date Final Anshu Date Ultra Sound Latest Days Gestation 0 0 Menstrual History Last Menstrual Date Menses Monthly On Bcp Conception Prior Menses Frequency Hcg Plus Date Menarche Onset Age Delivery Information Delivery Date Delivery Type Labor Anesthesia Weeks Gestation Incision Type Labor Labor Length Hrs Delivered By Post Complications Tubal Sterilization Discharge Date Comments 1 Discharge Information Feeding Method Contraceptive Method Maternal HG B and HCT Levels Ob Episode Information Episode Created Date Number of Fetuses Patient Bloodtype Patient rh Status Prepregnancy Weight lbs Domestic Partner Domestic Partner Phone Father Name Lead Java Developer Architect Status 01/15/20 22 1 CLOSED Fetus Data First Name Last Name Admitted to NICU Weight (g) Sex Living Outcome Pediatric Complications Fetus ID Race Codes Race Delivery Type , Induced [id number] Anshu Calculation Initial Anshu Date Initial Exam Date Initial Exam Provider Initial Ultrasound Date Last Menstrual Period Date Ultra Sound Weeks Gestation 0 Eighteen To Twenty Week Anshu Update Ultra Sound Date Fundal Height At Umbil Quickening Date Ultra Sound Latest Weeks Gestation Final Anshu Confirmed By Final Anshu Confirmed Date Final Anshu Date Ultra Sound Latest Days Gestation 0 0 Menstrual History Last Menstrual Date Menses Monthly On Bcp Conception Prior Menses Frequency Hcg Plus Date Menarche Onset Age Delivery Information Delivery Date Delivery Type Labor Anesthesia Weeks Gestation Incision Type Labor Labor Length Hrs Delivered By Post Complications Tubal Sterilization Discharge Date Comments 0 Discharge Information Feeding Method Contraceptive Method Maternal HG B and HCT Levels Ob Episode Information Episode Created Date Number of Fetuses Patient Bloodtype Patient rh Status Prepregnancy Weight lbs Domestic Partner Domestic Partner Phone Father Name Lead Java Developer Architect Status 02/10/20 22 1 A Positive 168 CLOSED Fetus Data First Name Last Name Admitted to NICU Weight (g) Sex Living Outcome Pediatric Complications Fetus ID Race Codes Race Delivery Type Sai 3175.14 4 F false Full Term [id number] Vaginal Delivery Problems Problem Notes 1 hr gtt elevated, HIV WNL, anemia Problem Name Start Date End Date Resolution Snomed Code Not e Anemia [id number] slowfe BID Late entry into care [id number] COVID-19 03/11/2022 [id number] ASA QD & serial growth Group B Streptococcus carrier 05/24/2022 [id number] Anshu Calculation Initial Anshu Date Initial Exam Date Initial Exam Provider Initial Ultrasound Date Last Menstrual Period Date Ultra Sound Weeks Gestation 06/16/2022 02/09/2022 01/14/2022 18 Eighteen To Twenty Week Anshu Update Ultra Sound Date Fundal Height At Umbil Quickening Date Ultra Sound Latest Weeks Gestation Final Anshu Confirmed By Final Anshu Confirmed Date Final Anshu Date Ultra Sound Latest Days Gestation 0 02/09/2022 06/16/20 22 0 Pre-christin Flowsheet Flowsheet Date 02/09/2022 Love Score Blood Edema Fundus Height Fundus Units Glucose Ketones Leukocytes Nitrite Labor Signs Protein Cervic Dilation Cervic Effacement Cervic Station neg none 23 none trace Type Weight in lbs Pre/Post Dialysis Refused Weight 174.53445188942 BP Diastolic BP Location Tested BP Systolic BP Type 69 110 Fetus Heart Rate Present A 150 Fetus Movement A Yes Comments Danielle is a 21yo at 21.6 for care. Aside of late care, her history is noncontributory. She smokes MJ and will quit, discussed risks. Labs and NIPT today. Us today anatomy complete and wnl. Routine care. Flowsheet Date 03/22/2022 Love Score Blood Edema Fundus Height Fundus Units Glucose Ketones Leukocytes Nitrite Labor Signs Protein Cervic Dilation Cervic Effacement Cervic Station Type Weight in lbs Pre/Post Dialysis Refused BP Diastolic BP Location Tested BP Systolic BP Type Fetus Heart Rate Present Fetus Movement Comments Flowsheet Date 03/23/2022 Love Score Blood Edema Fundus Height Fundus Units Glucose Ketones Leukocytes Nitrite Labor Signs Protein Cervic Dilation Cervic Effacement Cervic Station neg none 29 none trace Type Weight in lbs Pre/Post Dialysis Refused Weight 176.955003843713 BP Diastolic BP Location Tested BP Systolic BP Type 79 110 Fetus Heart Rate Present A 150 Fetus Movement A Yes Comments Doing great. GRowth was 25%. Doing GCT today. Stopped MJ 4 weeks ago, UDS next visit. Discussed and encouraged Tdap, will do. SOme palpitations, precautions given, always resolve within a couple minutes. Flowsheet Date 04/06/2022 Love Score Blood Edema Fundus Height Fundus Units Glucose Ketones Leukocytes Nitrite Labor Signs Protein Cervic Dilation Cervic Effacement Cervic Station neg trace 28 none trace Type Weight in lbs Pre/Post Dialysis Refused Weight 179.920362724230 BP Diastolic BP Location Tested BP Systolic BP Type 74 117 Fetus Heart Rate Present A 145 Fetus Movement A Yes Comments Doing great, no concerns. Wi ll do Tdap before next visit. UDs still pos MJ. Passed 3 hr. Taking Fe. Growth US next. Needs more appts after next visit. Flowsheet Date 04/20/2022 Love Score Blood Edema Fundus Height Fundus Units Glucose Ketones Leukocytes Nitrite Labor Signs Protein Cervic Dilation Cervic Effacement Cervic Station Type Weight in lbs Pre/Post Dialysis Refused BP Diastolic BP Location Tested BP Systolic BP Type Fetus Heart Rate Present Fetus Movement Comments Flowsheet Date 04/20/2022 Love Score Blood Edema Fundus Height Fundus Units Glucose Ketones Leukocytes Nitrite Labor Signs Protein Cervic Dilation Cervic Effacement Cervic Station neg none 31 none trace Type Weight in lbs Pre/Post Dialysis Refused Weight 182.801186690268 BP Diastolic BP Location Tested BP Systolic BP Type 70 106 Fetus Heart Rate Present A 150 Fetus Movement A Yes Comments Doing great, no concerns. To lerating ASA and Fe. Tdap is done. Discussed classes and chemists. Flowsheet Date 05/03/2022 Love Score Blood Edema Fundus Height Fundus Units Glucose Ketones Leukocytes Nitrite Labor Signs Protein Cervic Dilation Cervic Effacement Cervic Station neg trace 31 none trace Type Weight in lbs Pre/Post Dialysis Refused Weight 185.894220269837 BP Diastolic BP Location Tested BP Systolic BP Type 77 116 Fetus Heart Rate Present A 150 Fetus Movement A Yes Comments Donig well. . Taking both ir on and ASA. Growth US next visit. Flowsheet Date 05/18/2022 Love Score Blood Edema Fundus Height Fundus Units Glucose Ketones Leukocytes Nitrite Labor Signs Protein Cervic Dilation Cervic Effacement Cervic Station neg trace 35 none trace Type Weight in lbs Pre/Post Dialysis Refused Weight 187.496244777251 BP Diastolic BP Location Tested BP Systolic BP Type 80 119 Fetus Heart Rate Present A 143 Fetus Movement A Yes Comments patient is having back pain, discharge, and swelling. precautions reviewed, breast pump order put through with RN, gbs done cervix closed and soft f/u one week Flowsheet Date 05/19/2022 Love Score Blood Edema Fundus Height Fundus Units Glucose Ketones Leukocytes Nitrite Labor Signs Protein Cervic Dilation Cervic Effacement Cervic Station Type Weight in lbs Pre/Post Dialysis Refused BP Diastolic BP Location Tested BP Systolic BP Type Fetus Heart Rate Present Fetus Movement Comments Flowsheet Date 05/26/2022 Love Score Blood Edema Fundus Height Fundus Units Glucose Ketones Leukocytes Nitrite Labor Signs Protein Cervic Dilation Cervic Effacement Cervic Station neg trace 34 none trace 1cm 40% Type Weight in lbs Pre/Post Dialysis Refused Weight 189.390802087721 BP Diastolic BP Location Tested BP Systolic BP Type 80 116 Fetus Heart Rate Present A 145 Fetus Movement A Yes Comments Doing well. Labor precaution s reviewed. Good FM. GBS pos, discussed. FU weekly. Flowsheet Date 06/02/2022 Love Score Blood Edema Fundus Height Fundus Units Glucose Ketones Leukocytes Nitrite Labor Signs Protein Cervic Dilation Cervic Effacement Cervic Station neg trace 35 none trace 1cm 70% -2 Type Weight in lbs Pre/Post Dialysis Refused Weight 189.802730331743 BP Diastolic BP Location Tested BP Systolic BP Type 80 118 Fetus Heart Rate Present A 140 Fetus Movement A Yes Comments Doing fine, just uncomfortab le. WOuld like IOL around due date if undelivered. GBS pos. Cervix 1.5/70/soft. Will schedule. Labor precautions. Menstrual History Last Menstrual Date Menses Monthly On Bcp Conception Prior Menses Frequency Hcg Plus Date Menarche Onset Age Delivery Information Delivery Date Delivery Type Labor Anesthesia Weeks Gestation Incision Type Labor Labor Length Hrs Delivered By Post Complications Tubal Sterilization Discharge Date Comments 2 Induce d Regional-Ep idural 39.6 Wendy Donato MD Gbs+ Discharge Information Feeding Method Contraceptive Method Maternal HG B and HCT Levels Ob Episode Information Episode Created Date Number of Fetuses Patient Bloodtype Patient rh Status Prepregnancy Weight lbs Domestic Partner Domestic Partner Phone Father Name Lead Java Developer Architect Status 11/22/19 24 1 A Positive 191.6 CLOSED Fetus Data First Name Last Name Admitted to NICU Weight (g) Sex Living Outcome Pediatric Complications Fetus ID Race Codes Race Delivery Type 3883.88 15 F true Full Term [id number] Vaginal Delivery Problems Problem Notes Problem Name Start Date End Date Resolution Snomed Code Not e Cystic fibrosis [id number] monroy ier Anshu Calculation Initial Anshu Date Initial Exam Date Initial Exam Provider Initial Ultrasound Date Last Menstrual Period Date Ultra Sound Weeks Gestation 06/05/2024 11/22/2023 10/18/2023 08/03/2023 7 Eighteen To Twenty Week Anshu Update Ultra Sound Date Fundal Height At Umbil Quickening Date Ultra Sound Latest Weeks Gestation Final Anshu Confirmed By Final Anshu Confirmed Date Final Anshu Date Ultra Sound Latest Days Gestation 0 [id number] 11/22/2023 06/05/20 24 0 Pre- Flowsheet Flowsheet Date 11/22/2023 Love Score Blood Edema Fundus Height Fundus Units Glucose Ketones Leukocytes Nitrite Labor Signs Protein Cervic Dilation Cervic Effacement Cervic Station none 12 none neg Type Weight in lbs Pre/Post Dialysis Refused Weight 189.614312887953 BP Diastolic BP Location Tested BP Systolic BP Type 82 132 Fetus Heart Rate Present A 153 Fetus Movement A No Comments Presents to establish prenat al care. Some nausea, somewhat improved with reglan. Will add zofran. No cramping or bleeding. Pap smear collected today. NT/NB wnl today, NIPT drawn today. Cutting down on MJ, doing well with cessation. NO PMH/PSH. Begin routine care. Flowsheet Date 12/20/2023 Love Score Blood Edema Fundus Height Fundus Units Glucose Ketones Leukocytes Nitrite Labor Signs Protein Cervic Dilation Cervic Effacement Cervic Station Type Weight in lbs Pre/Post Dialysis Refused Weight 196.398405470746 BP Diastolic BP Location Tested BP Systolic BP Type 80 120 Fetus Heart Rate Present A 145 Fetus Movement A Yes Comments Doing well. Some movem ent, no cramping or bleeding. Nasuea improved. LR female NIPT. 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 Pap wnl. Doing well with MJ cessation. Anatomy US next visit. Flowsheet Date 01/17/2024 Lvoe Score Blood Edema Fundus Height Fundus Units Glucose Ketones Leukocytes Nitrite Labor Signs Protein Cervic Dilation Cervic Effacement Cervic Station Type Weight in lbs Pre/Post Dialysis Refused BP Diastolic BP Location Tested BP Systolic BP Type Fetus Heart Rate Present Fetus Movement Comments Flowsheet Date 01/17/2024 Love Score Blood Edema Fundus Height Fundus Units Glucose Ketones Leukocytes Nitrite Labor Signs Protein Cervic Dilation Cervic Effacement Cervic Station Type Weight in lbs Pre/Post Dialysis Refused Weight 194.359566924993 BP Diastolic BP Location Tested BP Systolic BP Type 85 124 Fetus Heart Rate Present A 134 Fetus Movement A Yes Comments Reports some headaches, has been trying to cut down on caffeine. Discussed safe caffeine limits. Good movement. No cramping or bleeding. Anatomy US complete and normal, EFW 86%. NEGAR wnl. RTC 4 weeks. Flowsheet Date 02/14/2024 Love Score Blood Edema Fundus Height Fundus Units Glucose Ketones Leukocytes Nitrite Labor Signs Protein Cervic Dilation Cervic Effacement Cervic Station Type Weight in lbs Pre/Post Dialysis Refused Weight 196.483806242366 BP Diastolic BP Location Tested BP Systolic BP Type 82 130 Fetus Heart Rate Present A 150 Fetus Movement A Yes Comments Doing well, baby active. Hea daches resolved. Had flu last weekend, feeling better now. No cramping or bleeding. Some swelling of feet. Discussed GCT and labs for next visit. RTC 4 weeks. Flowsheet Date 03/13/2024 Love Score Blood Edema Fundus Height Fundus Units Glucose Ketones Leukocytes Nitrite Labor Signs Protein Cervic Dilation Cervic Effacement Cervic Station Type Weight in lbs Pre/Post Dialysis Refused Weight 203.42214339070 BP Diastolic BP Location Tested BP Systolic BP Type 69 108 Fetus Heart Rate Present A 135 Fetus Movement A Yes Comments Good movement. No cram ping or bleeding. GCT and labs today. Discussed Tdap vaccine. Failed 1h GCT last , will plan on 32 week growth US if abnormal GCT today to screen for LGA. RTC 2 weeks. Flowsheet Date 04/06/2024 Love Score Blood Edema Fundus Height Fundus Units Glucose Ketones Leukocytes Nitrite Labor Signs Protein Cervic Dilation Cervic Effacement Cervic Station Type Weight in lbs Pre/Post Dialysis Refused Weight 203.59790729534 BP Diastolic BP Location Tested BP Systolic BP Type 87 119 Fetus Heart Rate Present A 145 Fetus Movement A Yes Comments Good movement. No ctx, LOF, VB. Plan for growth US at 36 weeks. EIL tentatively planning 05/29. Needs Tdap vaccine. GCT and labs normal at last visit. RTC 2 weeks. Flowsheet Date 04/18/2024 Love Score Blood Edema Fundus Height Fundus Units Glucose Ketones Leukocytes Nitrite Labor Signs Protein Cervic Dilation Cervic Effacement Cervic Station Type Weight in lbs Pre/Post Dialysis Refused Weight 204.904388941924 BP Diastolic BP Location Tested BP Systolic BP Type 64 116 Fetus Heart Rate Present A 140 Fetus Movement A Yes Comments Doing well, some intermitten t cramping. No bleeding or LOF. Good movemment. Still needs tdap. Discussed preadmission. Will repeat growth US next visit for growth and presentation. RTC 2 weeks. Flowsheet Date 05/08/2024 Love Score Blood Edema Fundus Height Fundus Units Glucose Ketones Leukocytes Nitrite Labor Signs Protein Cervic Dilation Cervic Effacement Cervic Station Type Weight in lbs Pre/Post Dialysis Refused BP Diastolic BP Location Tested BP Systolic BP Type Fetus Heart Rate Present Fetus Movement Comments Flowsheet Date 05/08/2024 Love Score Blood Edema Fundus Height Fundus Units Glucose Ketones Leukocytes Nitrite Labor Signs Protein Cervic Dilation Cervic Effacement Cervic Station 0cm 50% -3 Type Weight in lbs Pre/Post Dialysis Refused Weight 205.326369091901 BP Diastolic BP Location Tested BP Systolic BP Type 77 113 Fetus Heart Rate Present A 142 Fetus Movement A Yes Comments Doing well, no ctx, LOF, VB. EFW 62%, normal NEGAR. Would like EIL on 05/29. Received tdap vaccine. GBS and SVE performed, 0.5cm. RTC 1 week. labor precautions reviewed. Flowsheet Date 05/14/2024 Love Score Blood Edema Fundus Height Fundus Units Glucose Ketones Leukocytes Nitrite Labor Signs Protein Cervic Dilation Cervic Effacement Cervic Station 1cm 60% -2 Type Weight in lbs Pre/Post Dialysis Refused Weight 206.6222517943 BP Diastolic BP Location Tested BP Systolic BP Type 84 124 Fetus Heart Rate Present A 150 Fetus Movement A Yes Comments Good movement. No ctx, LOF, VB. Will schedule EIL on 05/29 AM. GBS negative. RTC 1 week. Labor precautions reviewed. Flowsheet Date 05/21/2024 Love Score Blood Edema Fundus Height Fundus Units Glucose Ketones Leukocytes Nitrite Labor Signs Protein Cervic Dilation Cervic Effacement Cervic Station 2cm 60% -2 Type Weight in lbs Pre/Post Dialysis Refused Weight 205.626253131460 BP Diastolic BP Location Tested BP Systolic BP Type 79 122 Fetus Heart Rate Present Fetus Movement A Yes Comments Baby active. No ctx, LOF, VB . Some irregular strong cramps. EIL scheduled for next week. Menstrual History Last Menstrual Date Menses Monthly On Bcp Conception Prior Menses Frequency Hcg Plus Date Menarche Onset Age 0908/03/2023 Genetic Screening And Infection History Question Response Note Mental Retardation/Autism false Patient's Age Will Be 35 Years Or Older At Estim ated Date of Delivery false Thalassemia (Greenlandic, Uzbek, Mediterranean, Or Background): MCV < 80 false Neural Tube Defect (Meningomyelocele, Spina Bifi da, Or Anencephaly) false Congenital Heart Defect false Down Syndrome false Jayjay-Sachs (eg, Roman Catholic, Cajun, Salvadorean-Bruneian) f alse Roselyn Disease false Sickle Cell Disease Or Trait () false Hemophilia Or Other Blood Disorders false Muscular Dystrophy false Cystic Fibrosis false Schuyler's Chorea false Intellectual Disability/Autism false If Yes, Was Person Tested For Fragile X? false Other Inherited Genetic Or Chromosomal Disorder false Maternal Metabolic Disorder (eg, Type 1 Diabetes , PKU) false Patient Or Baby's Father Had A Child With Defects Not Listed Above false Recurrent Loss, Or A Stillbirth false Medications (including Suppl ements, Vitamins, Herbs, OTC Drugs), Illicit/Recreational Drugs, Alcohol false If Yes, Agent(s) And Strength/Dosage false Any Other Genetic History false Live With Someone With TB Or Exposed To TB false Patient Or Partner Has History Of Genital Herpes false Rash Or Viral Illness Since Last Menstrual Perio d false History Of STD, Gonorrhea, Chlamydia, HPV, Syphi lis false Other Infection History false History of HIV false History of Hepatitis false Prior GBS-infected child false Hemoglobinopathy Or Carrier false Other Structural Defect false Recent Travel History Outside of Country false Delivery Information Delivery Date Delivery Type Labor Anesthesia Weeks Gestation Incision Type Labor Labor Length Hrs Delivered By Post Complications Tubal Sterilization Discharge Date Comments 4 Induce d Regional-Ep idural 39 false Dianne Oreilly MD Cystic fibrosis Discharge Information Feeding Method Contraceptive Method Maternal HG B and HCT Levels
== END 2025-01-24 12:58 | disposition home or self-care (01) ==
PROVIDERS: Emergency Medicine; Emergency Provider Physician Assistant; PCP Family Medicine
DX: R00.2 Palpitations (principal); R07.89 Other chest pain; I45.10 Unspecified right bundle-branch block
CPT/HCPCS: 36415; 71046; 80053; 81025; 83690; 83735; 84484; 85025; 85610; 85730; 93005; 96374; 99284; J1885

== ENCOUNTER 2025-02-07 13:55 | Outpatient (CLI) | payer OTHER, MEDICAID, SELFPAY ==
--- OUTSIDE RECORDS SUMMARY | 2025-02-07 14:49 | XMS_ITS | Data Portability ---
Author Organization [facility] [place] Address [address] [place] [address] [place] [address] Care Team Providers Care Technical Operations Manager Name Role Phone TWIN FRANKEL Primary Care Provider Assessment No assessment recorded. Plan of Treatment Reminders Order Date Submit Date Provider Last Modified By Organization Details Last Modified Time Details Appointments None recorded. Lab None recorded. Referral None recorded. Procedures None recorded. Surgeries None recorded. Imaging US, obstetric, follow-up 2023 024 [email or web address] [place], [facility] [address], [place], [address], 4 20:41:00 Medication Orders Microgestin Fe 1.5/30 (28) 1.5 mg-30 mcg (21)/75 mg (7) tablet 2023 024 [id number], [address] [facility], [place], [place], [id number], 4 10:41:49 Patient TargetsNo targets recorded. Patient [...] Resul ting Lab: [facility] [address] [facility] [address] Tel: CULTU RE ----- ----- ----- --- No Group B strep isola my at 2 days (keyanna ctive broth enhan cemen t) Not Available [facility] (Lab) [address], [place], [address], 05/11/2024 15:57:36 05/08/20 24 05/08/2024 US, obste tric, follo w-up No observ ation record ed. [email or web address] [place] [address], [place], [address], 05/08/2024 17:23:07 05/08/20 24 05/08/2024 US, obste tric, follo w-up No observ ation record ed. [email or web address] [address], [place], [address], 05/08/2024 21:40:24 Result Notes None recorded. Problems Name Problem SNOMED Code Status Onset Date Resolution Date Notes Provider Name and Address Organization Details Recorded Time Pregnanc y 70231798 Completed 202107/02/2022 Dolores terrazas [facility] 4 11:50:56 COVID-19 163084925 Completed 2021 ASA QD & serial growth Romana lowery [facility] 2 13:11:51 Anemia 765689200 Completed slowfe BID Romana lowery [facility] 2 13:11:51 Late entry into care 128867463 Completed 01/17/2024 DIANNE OREILLY MD [address], [place], [address], [facility] 4 13:01:10 Anemia 678655125 Completed 01/17/2024 slowfe BID DIANNE OREILLY MD [address], [place], [address], [facility] 4 13:01:22 COVID-19 750573239 Completed 202101/17/2024 ASA QD & serial growth DIANNE OREILLY MD [address], [place], [address], [facility] 4 13:01:04 Late entry into care 467965589 Completed Romana terrazas, [facility] 2 13:11:51 Group B Streptoc occus carrier [id number] 103 Completed 202101/17/2024 DIANNE OREILLY MD [address], [place], [address], [facility] 4 13:01:13 Group B Streptoc occus carrier [id number] 103 Completed 2021 Romana terrazas, [facility] 2 13:11:51 Pregnanc y 03938279 Completed 202306/08/2024 Dolores Antonio null, [facility] 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 4 17:41:12 Problem Notes None recorded. Procedures Surgical History Date Name Laterality Status Provider Name and Address Organization Details Recorded Time 11/14/19 21 termination of completed Pnig Chowdary [facility] 05/18/2022 08:59:41 11/14/19 20 termination of completed Ping Chowdary [facility] 05/18/2022 08:59:38 Imaging Results Imaging Date Name Status LastModified by Organiz ation Details LastModified Time 05/08/2024 US, obstetric, follow-up completed [email or web address] [place] [address], [place], [address], 05/08/2024 17:23:07 05/08/2024 US, obstetric, follow-up completed [email or web address] [address], [place], [address], 05/08/2024 21:40:24 Procedure Notes None recorded. Medical [...] 35.2 kg/m2 113 mm[Hg] 77 mm[Hg] Hanna [facility] 05/08/2024 17:10:56 Date Recorded Body weight Provider Name an d Address Organization Details Last Updated DateTime 05/08/2024 24331.52675 Anastacio Rushing [address], [place], [address], [facility] 05/08/2024 17:32:17 Date Recorded Body height Body mass index (BMI) Systolic blood pressure Diastolic blood pressure Provider Name and Address Organization Details Last Updated DateTime 05/14/2024 162.56 cm 35.5 kg/m2 124 mm[Hg] 84 mm[Hg] [facility] 05/14/2024 16:43:59 Date Recorded Body weight Provider Name an d Address Organization Details Last Updated DateTime 05/14/2024 83360.270092 Anastacio Rushing [address], [place], [address], [facility] 05/14/2024 16:58:18 Date Recorded Body height Body mass index (BMI) Systolic blood pressure Diastolic blood pressure Provider Name and Address Organization Details Last Updated DateTime 05/21/2024 162.56 cm 35.2 kg/m2 122 mm[Hg] 79 mm[Hg] Hanna Swayne [facility] 05/21/2024 17:21:46 Date Recorded Body weight Provider Name an d Address Organization Details Last Updated DateTime 05/21/2024 25982.20192 g Anastacio LIM [address], [place], [address], [facility] 05/21/2024 17:41:13 Date Recorded Body height Body mass index (BMI) Body weight Systolic blood pressure Diastolic blood pressure Provider Name and Address Organization Details Last Updated DateTime 07/04/2024 162.56 cm 33.2 kg/m2 36056.05 g 115 mm[Hg] 70 mm[Hg] Hanna Gonzalez [facility] 10:35:08 Social History Question Answer Notes LastModified by Organizat ion Details LastModified Time Tobacco Smoking Status Never Smoker Sarah terrazas, [facility] 11/22/2023 09:35:01 Do You Have An Advance Directive? No [email or web address] Information n ot available 01/14/2022 What Is Your Level Of Alcohol Consumption? None [email or web address] Information not available 01/14/2022 If You Are , What Was Your Level Of Alcohol Consumption Prior To ? Occasional [email or web address] Information not available 11/22/2023 Are You Blind Or Do You Have Difficulty Seeing? No Information n ot available 01/14/2022 What Is Your Level Of Caffeine Consumption? Occasional [email or web address] Information not available 01/14/2022 How Much Tobacco Do You Chew? None [email or web address] Information not available 01/14/2022 In The 14 Days Before Symptom Onset, Have You Had Close Contact With A Laboratory-confirm ed COVID-19 While That Case Was Ill? Yes Information n ot available 01/14/2022 In The 14 Days Before Symptom Onset, Have You Had Close Contact With A Person Who Is Under Investigation For COVID-19 While That Person Was Ill? Yes [email or web address] Information not available 01/14/2022 Have You Been To An Area Known To Be High Risk For COVID-19? Yes [email or web address] Information not available 01/14/2022 Are You Deaf Or Do You Have Serious Difficulty Hearing? No Information not available 01/14/2022 What Type Of Diet Are You Following? REGULAR [email or web address] Information n ot available 05/19/2022 What Is The Highest Grade Or Level Of School You Have Completed Or The Highest Degree You Have Received? 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 Yes Information not available 01/14/2022 Do You Use Protection During Sex? No Information not available 01/14/2022 Do You Use Your Seat Belt Or Car Seat Routinely? Yes [email or web address] Information not available 01/14/2022 Do You Have Smoke And Carbon Monoxide Detectors In Your Home? Yes [email or web address] Information not available 01/14/2022 How Much Tobacco Do You Smoke? No Information not available 01/14/2022 Do You Feel Stressed (tense, Restless, Nervous, Or Anxious, Or Unable To Sleep At Night)? [id number] [email or web address] Information not available 01/14/2022 Do You Use Any Illicit Or Recreational Drugs? Yes [email or web address] Information not available 01/14/2022 Do You Use Sunscreen Routinely? No [email or web address] Information not available 01/14/2022 Has Tobacco Cessation Counseling Been Provided? No [email or web address] Information not available 11/22/2023 Have You Used IV Drugs? No [email or web address] Information not available 01/14/2022 Do You Or Have You Ever Used Any Other Forms Of Tobacco Or Nicotine? No [email or web address] Information not available 11/22/2023 Sex: Unknown Functional Status Question Answer Note LastModified by Organizat ion Details LastModified Time Do you have difficulty walking or climbing stairs? No [email or web address] Information not available 11/22/2023 Are you able to walk? YESASSIST [email or web address] Information not available 01/14/2022 Are you able to care for yourself? Yes [email or web address] Information not available 11/22/2023 Do you have difficulty dressing or bathing? No [email or web address] Information not available 11/22/2023 What is your exercise level? Moderate [email or web address] Information not available 01/14/2022 Mental Status None recorded. Family History Relationship Description Onset Age of this Age Resolved Age Notes LastModified by Organization Details LastModified Time Father No current problems or disability [email or web address] Not available 01/14 09:35:29 Mother No current problems or disability [email or web address] Not available 01/14 09:35:29 Medical History Condition Response Allergies (Food, seasonal, environmental ) N Other N Drug/Latex Allergies/Reactions N Blood Transfusion N Breast Cancer N Dermatologic Disorders N Lung Disease Y Defects or Inherited Disease N Breast Problem N Gestational Diabetes N Hematologic disorders N Anesthesia Complications N History of STI N Deep Vein Thrombosis N Polycystic ovary syndrome N Anxiety Disorder N Autoimmune disease N Arthritis N Polyps N Infertility N Acid Reflux (GERD) N History of abnormal pap N Cancer N Varicosities N Stroke N Neurologic/Epilepsy N Endometriosis N High Cholesterol N Fibromyalgia N Headaches N Kidney Disease N Heart Problems N Thyroid Problems N Kidney or Bladder Problems N GI Problems N Eating Disorder [...] SNOMED-CT Code Diagnosis ICD10 Code Diagnosis Note [id number] Makeda Gunderson [place] [address] [address] 01/14/2022 09:22:02 01/14/2022 10:08:21 test positive 996757148 Z32.01 Risk factors addressed: Tobacco Cessation, Safe [...] annual well woman examinatio n and address [facility] . [id number] [facility] [address],[place] [address] 01/14/2022 09:22:24 01/14/2022 10:53:01 screening for malformation 104110732 Z36.3 [id number] Randee Carbajal [place] [address],[place] [address] 02/09/2022 15:27:13 02/09/2022 16:35:59 screening 120595240 Z36.2 [id number] Wendy Ruiz MD [place] [address],[place] [address] 02/09/2022 15:44:25 02/09/2022 16:41:49 Routine care 309127869 Z34.91 [id number] [facility] [address],[place] [address] 03/22/2022 12:29:24 03/22/2022 13:05:53 COVID-19 796672941 U07.1 [id number] Wendy Ruiz MD [place] [address],[place] [address] 03/23/2022 09:29:45 03/23/2022 10:10:55 Routine care 117725140 Z34.91 [id number] Wendy Ruiz MD [place] [address],[place] [address] 04/06/2022 15:19:53 04/06/2022 16:07:51 Routine care 434875438 Z34.91 [id number] Randee Carbajal [place] [address],[place] [address] 04/20/2022 13:59:11 04/20/2022 14:50:33 Pre-existing maternal disease complicating 7330527364 6106 O99.891 U07.1 Z86.16 Z3A.31 [id number] Wendy Ruiz MD [place] [address],[place] [address] 04/20/2022 14:02:09 04/20/2022 14:50:57 [id number] Wendy Ruiz MD [place] [address],[place] [address] 05/03/2022 09:44:26 05/03/2022 17:15:45 Routine care 558612951 Z34.91 COVID-19 928112630 U07.1 [id number] [facility] [address],[place] [address] 05/18/2022 09:59:52 05/18/2022 12:54:00 Routine care 528645141 Z34.93 [id number] Elvia Del Angel [place] [address],[place] [address] 05/19/2022 11:06:29 05/21/2022 16:47:12 COVID-19 399048415 U07.1 O99.891 Z3A.36 [id number] Wendy Ruiz MD [place] [address],[place] [address] 05/26/2022 10:01:21 05/28/2022 15:07:25 Routine care 403837756 Z34.91 [id number] Wendy Ruiz MD [place] [address],[place] [address] 06/02/2022 10:23:26 06/02/2022 11:16:14 Group B Streptococcus carrier 9890098736 103 Z22.330 Late entry into care 052597741 O09.33 screening 2437 14409 Z36.89 [id number] Wendy Ruiz MD [place] [address],[place] [address] 07/13/2022 16:16:24 07/20/2022 15:51:58 care 957123103 Z39.2 Initial pr escription of oral contraception 001851793 Z30.011 [id number] Elvia Del Angel [place] [address],[place] [address] 10/18/2023 09:30:23 10/18/2023 13:53:25 screening 712789228 Z36.87 Z3A.01 [id number] DIANNE OREILLY MD [place] [address],[place] [address] 10/18/2023 09:30:46 10/18/2023 11:20:39 test positive 042291999 Z32.01 1. Exam today within normal limits.2. Ultrasound today confirms GA and viability. EDC . GC/Clamydi a testing done: will f/u as indicated. 4. ACOG guidelines and plan of care for reviewed with patient. All questions answered.5 . Return to office at 12 weeks for new OB visit6. Will need new OB labs at next visit.7. [facility] screening: [facility]. [id number] [facility] [address],[place] [address] 11/22/2023 09:34:51 11/22/2023 11:02:46 screening 298159440 Z36.82 Z3A.12 [id number] DIANNE OREILLY MD [place] [address] [place] [address] 11/22/2023 09:35:54 11/22/2023 11:30:51 Gestation period, 12 weeks 80585168 Z3A.12 Marijuana user 168212780 F12.90 Nausea and vomiting 1693 2000 R11.2 [id number] DIANNE OREILLY MD [place] [address],[place] [address] 12/20/2023 10:30:20 12/20/2023 11:08:51 Routine care 964400932 Z34.82 [id number] Etta Hassan [place] [address],[place] [address] 01/17/2024 11:28:43 01/17/2024 12:27:14 screening for malformation 823693831 Z36.3 Z3A.20 [id number] DIANNE OREILLY MD [place] [address],[place] [address] 01/17/2024 11:29:05 01/17/2024 13:02:41 Routine care 274416885 Z34.82 [id number] DIANNE OREILLY MD [place] [address],[place] [address] 02/14/2024 09:56:33 02/14/2024 10:43:32 Routine care 435443998 Z34.82 [id number] DIANNE OREILLY MD [place] [address],[place] [address] 03/13/2024 09:56:52 03/13/2024 10:39:05 Past history of with abnormal glucose tolerance test 9086162691 Z87.59 Gestation period, 28 weeks 56781270 Z3A.28 [id number] DIANNE OREILLY MD [place] [address],[place] [address] 04/06/2024 16:25:08 04/07/2024 11:37:10 Routine care 244306567 Z34.83 [id number] DIANNE OREILLY MD [place] [address],[place] [address] 04/18/2024 16:50:19 04/19/2024 03:50:02 Routine care 465285423 Z34.83 [id number] Elvia [facility] [address],[place] [address] 05/08/2024 16:31:59 05/08/2024 17:03:54 Uterine size for dates discrepancy 161095940 O26.843 Z3A.36 [id number] DIANNE OREILLY MD [place] [address],[facility] [place] [address] 05/08/2024 16:42:17 05/08/2024 18:23:42 Routine care 984134341 Z34.83 [id number] DIANNE OREILLY MD [place] [address],[place] [address] 05/14/2024 16:30:33 05/14/2024 17:00:50 Routine care 745720804 Z34.83 [id number] DIANNE OREILLY MD [place] [address],[place] [address] 05/21/2024 17:14:27 05/21/2024 17:45:38 Routine care 349055073 Z34.83 [id number] DIANNE ROEILLY MD [place] [address],[place] [address] 07/04/2024 10:14:49 07/05/2024 11:00:58 Initial prescription of oral contraception 835276823 Z30.011 - r/b/a of OCPs discussed with patient- not breastfeed ing- ji care 35550307 8 Z39.2 S/p 4 weeks ago here [...] Francisco Member ID Guarantor Name 05/08/2024 2 [place]: [facility] Danielle Leal [id number] Danielle Leal 05/08/2024 1 R [id number] Danielle Leal [id number] Danielle Leal 05/08/2024 2 [place]: [employer] Danielle Leal [id number] Danielle Leal 05/08/2024 1 R [id number] Danielle Bennettmann [id number] Danielle Leal 05/14/2024 2 [place]: [facility] Danielle Leal [id number] Danielle Leal 05/14/2024 1 R [id number] Danielle Leal [id number] [facility] 05/21/2024 2 [place] [facility] Danielle Leal [id number] Danielle Leal 05/21/2024 1 R [id number] Danielle Bennettmann [id number] [facility] 07/04/2024 2 [place] [facility] Danielle Leal [id number] Danielle Leal 07/04/2024 1 R [id number] Danielle Leal [id number] [facility] Notes Date Note Type Note [...] time. DIANNE OREILLY MD [address], [place], [address], [facility] 07/05/2024 10:42:47 OBGyn Episode Ob Episode Information Episode Created Date Number of Fetuses Patient Bloodtype Patient rh Status Prepregnancy Weight lbs Domestic Partner Domestic Partner Phone Father Name Pulmonary Specialist Status 01/15/20 1 CLOSED Fetus Data First Name Last Name Admitted to NICU Weight (g) Sex Living Outcome Pediatric Complications Fetus ID Race Codes Race Delivery Type , Induced 31258 Anshu Calculation Initial Anshu Date Initial Exam [...] Domestic Partner Domestic Partner Phone Father Name Pulmonary Specialist Status 01/15/20 22 1 CLOSED Fetus Data First Name Last Name Admitted to NICU Weight (g) Sex Living Outcome Pediatric Complications Fetus ID Race Codes Race Delivery Type , Induced 50315 Anshu Calculation Initial Anshu Date Initial Exam [...] Domestic Partner Domestic Partner Phone Father Name Pulmonary Specialist Status 02/10/20 22 1 A Positive 168 CLOSED Fetus Data First Name Last Name Admitted to NICU Weight (g) Sex Living Outcome Pediatric Complications Fetus ID Race Codes Race Delivery Type Sai 3175.14 4 F false Full Term 01671 Vaginal Delivery Problems Problem Notes 1 hr gtt elevated, HIV WNL, anemia Problem Name Start Date End Date Resolution Snomed Code Not e Anemia 437750226 slowfe BID Late entry into care 340919535 COVID-19 03/11/2022 526626564 ASA QD & serial growth Group B Streptococcus carrier 05/24/2022 [id number] Anshu Calculation Initial Anshu Date Initial Exam Date Initial Exam Provider Initial Ultrasound Date Last Menstrual Period Date Ultra Sound Weeks Gestation 06/16/2022 02/09/2022 01/14/2022 18 Eighteen To Twenty Week Anshu Update Ultra Sound Date Fundal Height At Umbil Quickening Date Ultra Sound Latest Weeks Gestation Final Anshu Confirmed By Final Anshu Confirmed Date Final Anshu Date Ultra Sound Latest Days Gestation 0 [email or web address] 02/09/2022 06/16/20 22 0 Pre-christin Flowsheet Flowsheet Date 02/09/2022 Love Score Blood Edema Fundus Height Fundus Units Glucose Ketones Leukocytes Nitrite Labor Signs Protein Cervic Dilation Cervic Effacement Cervic Station neg none 23 none trace Type Weight in lbs Pre/Post Dialysis Refused Weight 174.46554011223 BP Diastolic BP Location Tested BP Systolic [...] Weight in lbs Pre/Post Dialysis Refused Weight 176.348048165992 BP Diastolic BP Location Tested BP Systolic [...] Weight in lbs Pre/Post Dialysis Refused Weight 179.628750284771 BP Diastolic BP Location Tested BP Systolic [...] Weight in lbs Pre/Post Dialysis Refused Weight 182.783229580305 BP Diastolic BP Location Tested BP Systolic BP Type 70 106 Fetus Heart Rate Present A 150 Fetus Movement A Yes Comments Doing great, no concerns. To lerating ASA and Fe. Tdap is done. Discussed classes and wet cleaner machine. Flowsheet Date 05/03/2022 Love Score Blood Edema Fundus Height Fundus Units Glucose Ketones Leukocytes Nitrite Labor Signs Protein Cervic Dilation Cervic Effacement Cervic Station neg trace 31 none trace Type Weight in lbs Pre/Post Dialysis Refused Weight 185.716633166430 BP Diastolic BP Location Tested BP Systolic [...] Weight in lbs Pre/Post Dialysis Refused Weight 187.358367103221 BP Diastolic BP Location Tested BP Systolic [...] Weight in lbs Pre/Post Dialysis Refused Weight 189.247836826379 BP Diastolic BP Location Tested BP Systolic [...] Weight in lbs Pre/Post Dialysis Refused Weight 189.121985091752 BP Diastolic BP Location Tested BP Systolic [...] Domestic Partner Domestic Partner Phone Father Name Pulmonary Specialist Status 11/22/19 24 1 A Positive 191.6 CLOSED Fetus Data First Name Last Name Admitted to NICU Weight (g) Sex Living Outcome Pediatric Complications Fetus ID Race Codes Race Delivery Type 3883.88 15 F true Full Term 30038 Vaginal Delivery Problems Problem Notes Problem Name Start Date End Date Resolution Snomed Code Not e Cystic fibrosis 929566788 monroy ier Anshu Calculation Initial Anshu Date [...] Date Ultra Sound Latest Days Gestation 0 [email or web address] 11/22/2023 06/05/20 24 0 Pre- Flowsheet Flowsheet Date 11/22/2023 Love Score Blood Edema Fundus Height Fundus Units Glucose Ketones Leukocytes Nitrite Labor Signs Protein Cervic Dilation Cervic Effacement Cervic Station none 12 none neg Type Weight in lbs Pre/Post Dialysis Refused Weight 189.542451507969 BP Diastolic BP Location Tested BP Systolic [...] Weight in lbs Pre/Post Dialysis Refused Weight 196.904238013454 BP Diastolic BP Location Tested BP Systolic BP Type 80 120 Fetus Heart Rate Present A 145 Fetus Movement A Yes Comments Doing well. Some movem ent, no cramping or bleeding. Nasuea improved. LR female NIPT. 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 Pap wnl. Doing well with MJ cessation. Anatomy US next visit. Flowsheet Date 01/17/2024 Love Score Blood Edema [...] Weight in lbs Pre/Post Dialysis Refused Weight 194.947628006732 BP Diastolic BP Location Tested BP Systolic [...] Weight in lbs Pre/Post Dialysis Refused Weight 196.977648656897 BP Diastolic BP Location Tested BP Systolic [...] Weight in lbs Pre/Post Dialysis Refused Weight 203.05678926868 BP Diastolic BP Location Tested BP Systolic [...] Weight in lbs Pre/Post Dialysis Refused Weight 203.18143439422 BP Diastolic BP Location Tested BP Systolic [...] Weight in lbs Pre/Post Dialysis Refused Weight 204.805261649418 BP Diastolic BP Location Tested BP Systolic [...] Weight in lbs Pre/Post Dialysis Refused Weight 205.278877468500 BP Diastolic BP Location Tested BP Systolic [...] Weight in lbs Pre/Post Dialysis Refused Weight 206.8503097213 BP Diastolic BP Location Tested BP Systolic [...] Weight in lbs Pre/Post Dialysis Refused Weight 205.624124210156 BP Diastolic BP Location Tested BP Systolic [...] Estim ated Date of Delivery false Thalassemia (Yoruba, Luxembourgish, Mediterranean, Or Background): MCV < 80 false Neural Tube Defect (Meningomyelocele, Spina Bifi da, Or Anencephaly) false Congenital Heart Defect false Down Syndrome false Jayjay-Sachs (eg, Oriental Orthodox, Cajun, North Korean-Vincentian) f alse Roselyn Disease false Sickle Cell Disease Or Trait () false Hemophilia Or Other Blood Disorders false Muscular Dystrophy false Cystic Fibrosis false Cshuyler's Chorea false Intellectual Disability/Autism false If Yes, [...]
--- NOTE | 2025-03-15 11:57 | WPDHOLTEREM ---
Holter/Event Monitor Holter/Event Monitor Date of procedure: 02/07/25 Holter/Event Procedure: 3-7 Day Holter Monitor Indications: Palpitations Conclusion: 1. 3 days holter monitor on 02/07/25. 2. Underlying rhythm is sinus rhythm. HR range 44-162 bpm; average 88 bpm. HR at 44 bpm was on 02/08/25 at 11:52 am. HR at 162 bpm was on 02/08/25 at 7:53 pm. 3. There are rare premature supraventricular complexes. No supraventricular tachycardia. 4. There are rare premature ventricular complexes and rare ventricular couplets. No ventricular tachycardia. 5. No significant pauses greater than 3 seconds. 6. No symptoms available for correlation.
== END 2025-02-07 13:56 | disposition home or self-care (01) ==
LOC: ANHCARD 13:55
PROVIDERS: PCP Family Medicine; Visit Provider Family Medicine
DX: R00.2 Palpitations (principal)
CPT/HCPCS: 93242

== ENCOUNTER 2025-02-18 17:26 | Emergency (ER) | payer OTHER, MEDICAID, SELFPAY ==
--- NOTE | 2025-02-18 17:28 | ED_ITS ---
HPI - URI/Sore Throat General Chief Complaint: Upper Respiratory Infection Stated Complaint: Sore Throat/Headache Time Seen by Provider: 02/18/25 17:26 Source: patient Mode of arrival: ambulatory Limitations: no limitations History of Present Illness HPI Narrative: Kirti is a 24-year-old female patient presenting to the clinic today with complaints of fever, sore throat, headache, fatigue, cough, nasal congestion, and chest congestion x1 day. She reports highest fever of 102.5. Denies any chest pain but feels short of breath at times. MD elicited complaint: sore throat and nasal congestion Related Data Allergies Allergy/AdvReac Type Severity Reaction Status Date / Time Penicillins Allergy Unknown Verified 02/18/25 17:53 Review of Systems Review of Systems: Pertinent positives per HPI. Patient denies any rash, headache, visual changes, dizziness, chest pain, palpitations, nausea, vomiting, diarrhea, constipation, abdominal pain, or any urinary issues. PMFSH Past Medical History Medical History No pertinent past medical history Surgical History Surgical History No history of previous surgery Family History Family History Other No pertinent family history Social History Social History Smoking status: Never smoker Second hand tobacco smoke exposure: No Alcohol intake: current Substance use: never Substance use type: marijuana Last use: Dec 2021 Do You Feel Safe in your Home?: Yes Lack of Transportation: No Lack of Food: Never True Current Housing: I Do Not Have Housing Concerned About Future Housing: No Difficulty Paying Gas/Electric Bills: No Difficulty Paying for Meds: No Currently Unemployed: No Education: High School Diploma/GED Difficulty w/ Childcare or Family Care: No Gender identity (if verbalized by the patient): Female Spiritual care concerns: No Comments At the time of my signature, I reviewed and agree with the nursing past medical, surgical, social, and family history. There is no relevant family history pertinent to the patient complaint. Exam Narrative: General: Well-developed, well nourished, acutely ill-appearing Head: Normocephalic, atraumatic Eyes: Pupils equally round and reactive to light bilaterally, EOM intact, sclera and conjunctive clear, no discharge, lids normal Ears: TMs intact and congested, ear canals clear, no drainage, grossly hearing n ormal. Nose: Nares patent, clear nasal discharge, no inflammation, no sinus tenderness. Mouth: Oral pharynx red with bilateral tonsillar enlargement without lesions or masses, good dentition, MMM. Neck: Supple, trachea midline, enlargement of anterior cervical nodes, no thyroid masses or goiter palpable. Cardio: Tachycardic rate and rhythm, s1 and s2 normal, no murmur appreciated. Resp: Clear to auscultation bilaterally, no rhonchi, rales, wheezing or rubs Course Course Emergency Course: Portions of this record may have been created with voice recognition software. Level of Care: Express Care Visit Vital Signs Vital signs: Vital Signs Temperature 36.8 C 02/18/25 17:31 Pulse Rate 147 H 02/18/25 17:31 Respiratory Rate 20 02/18/25 17:31 Blood Pressure 136/82 02/18/25 17:31 Pulse Oximetry 98 02/18/25 17:31 Oxygen Delivery Room Air 02/18/25 17:31 Temperature 36.8 C 02/18/25 17:31 Pulse Rate 147 H 02/18/25 17:31 Respiratory Rate 20 02/18/25 17:31 Blood Pressure 136/82 02/18/25 17:31 Pulse Oximetry 98 02/18/25 17:31 Oxygen Delivery Room Air 02/18/25 17:31 Vital signs reviewed MDM - URI/Sore Throat MDM Narrative Medical decision making narrative: At the time of visit patient is resting comfortably on the exam table. Patient appears to be nontoxic. Labs: COVID, influenza, and strep test was performed. COVID and influenza testing was negative. Strep test was positive. Plan: I suspect patient has strep pharyngitis. Prescription for cefdinir was sent to the pharmacy. Supportive measures were discussed with the patient and they voiced understanding discharge instructions and agrees to treatment plan. Return precautions reviewed Differential Diagnosis Differential diagnosis: Likely upper respiratory infection, otitis media, sinusitis, viral infection, bronchitis, influenza, pharyngitis and other (COVID) Lab Data Labs: Lab Results 02/18/25 Range/Units 17:41 POC Influenza A Ag Negative (Negative) POC Influenza B Ag Negative (Negative) POC SARS CoV-2 Ag Negative (Negative) POC Grp A Strep Screen Positive (Negative) Discharge Plan Discharge Clinical Impression: Acute streptococcal pharyngitis Patient Disposition: Home Condition: Stable Instructions: Antibiotic Form, Strep Throat (ED) Additional Instructions: Take prescription medications only as prescribed-cefdinir Increase fluids and stay well hydrated Tylenol/motrin for pain/fever Flonase and OTC antihistamines as directed Vicks vapor rub to open sinuses Sinus rinses for congestion Cepacol spray, cough drops, throat lozenges, warm tea with honey/lemon, gargle salt water to soothe throat BRAT diet for diarrhea Clear liquids x 24 hours then advance as tolerated for nausea/vomiting Go to the ED if you develop a worsening in your condition- high fever not controlled by Tylenol or Motrin, dehydration, weakness, lethargy, shortness of breath, or chest pain. Follow up with your PCP in 3-5 days if symptoms persist. Patient Language: Indonesian Prescriptions: New cefdinir 300 mg capsule 300 mg PO Q12H 10 Days Qty: 20 0RF No Action triamcinolone acetonide 0.1 % cream 1 applic topical BID PRN (Reason: eczema ) Qty: 80 0RF Rx Instructions: Apply once or twice daily to affected areas for 2 to 4 weeks. You may need intermittent application once daily for 2 days per week for maintenance. Follow-up/Referrals: Binu Mueller DO [Primary Care Provider] - Stand Alone Forms: Work/School Release IP Time of Disposition: 17:58 Quality NIHSS Nursing Documentation ED NIHSS nursing documentation: reviewed/agree
[2025-02-18 17:31] VITALS: BP 136/82; PULSE 147; RESP 20; TEMP 36.8; O2SAT 98
[2025-02-18 18:00] LABS: EDCOVIDSCREEN Negative (Negative); EDINFLUASCREEN Negative (Negative); EDINFLUBSCREEN Negative (Negative); EDSTREPNEGPOS1 Positive (Negative)
== END 2025-02-18 18:00 | disposition home or self-care (01) ==
PROVIDERS: Emergency Provider Nurse Practitioner Family; PCP Family Medicine
DX: J02.0 Streptococcal pharyngitis (principal); Z20.822 Contact with and (suspected) exposure to COVID-19
CPT/HCPCS: 87426; 87804; 87880; 99213; G0463

== ENCOUNTER 2025-03-31 11:07 | Emergency (ER) | payer OTHER, MEDICAID, SELFPAY ==
[2025-03-31 11:14] VITALS: BP 119/75; PULSE 105; RESP 14; TEMP 37.6; O2SAT 100
--- NOTE | 2025-03-31 11:32 | ED.URI ---
HPI - URI/Sore Throat General Chief Complaint: Upper Respiratory Infection Stated Complaint: Sore Throat Source: patient, RN notes reviewed and old records reviewed Mode of arrival: ambulatory Limitations: no limitations History of Present Illness HPI Narrative: 24 year old female who presents to [facility] care with complaints of sore throat since Tuesday with pain increasing to her left side of throat and also some pain to her left ear with some fevers noted and also body aches. Patient reports that she has been taking Ibuprofen for her symptoms with last dose at 1000. MD elicited complaint: fever, sore throat and other (left ear pain) Pertinent past history: other (strep throat) Onset (ago): day(s) (3) Pain scale (0-10): 7 Able to tolerate fluids by mouth: Yes Exacerbating factors: swallowing Treatments prior to arrival: ibuprofen Related Data Allergies Allergy/AdvReac Type Severity Reaction Status Date / Time cefdinir Allergy Intermediate Hives Verified 03/31/25 11:30 Penicillins Allergy Unknown Verified 03/31/25 11:28 Review of Systems Review of Systems: CONSTITUTIONAL: Reports malaise, chills, sweats, or fever. EYES: Denies visual changes, redness, or discharge. ENT: Reports rhinorrhea, congestion, sinus pain,left otalgia and positive for sore throat. CARDIOVASCULAR: Denies chest pain, palpitations, or edema. RESPIRATORY: Reports no cough. Denies dyspnea. GASTROINTESTINAL: Denies abdominal pain, nausea, vomiting, diarrhea SKIN: Denies rash or itching. MUSCULOSKELETAL:Reports myalgia. NEUROLOGIC: Denies headache. All systems reviewed & are unremarkable except as noted in HPI and below PMFSH Past Medical History Medical History Heart palpitations UTI (urinary tract infection) Strep pharyngitis Surgical History Surgical History [place] teeth extracted Family History Family History Other No pertinent family history Social History Social History Smoking status: Never smoker Second hand tobacco smoke exposure: No Alcohol intake: current Substance use: former Substance use type: marijuana Last use: Dec 2021 Do You Feel Safe in your Home?: Yes Lack of Transportation: No Lack of Food: Never True Current Housing: I Do Not Have Housing Concerned About Future Housing: No Difficulty Paying Gas/Electric Bills: No Difficulty Paying for Meds: No Currently Unemployed: No Education: High School Diploma/GED Difficulty w/ Childcare or Family Care: No Gender identity (if verbalized by the patient): Female Spiritual care concerns: No Comments At time of signature, agree with nursing past medical, surgical, social and family history. There is no relevant family history pertinent to the presenting complaint Exam Narrative: GENERAL: Well-appearing, well-nourished, and in no acute distress. HEAD: Normocephalic EYES: PERRLA, conjunctivae clear ENT: Nares clear, turbinates edematous and erythematous, clear discharge. Mucous membranes moist.Left TM red, Right TM pearly gonsalez with dull light reflex ; no tragal tenderness. Oropharynx erythematous without lesions. Tonsils red not enlarged and without exudate, no drooling, no hoarseness, no trismus, uvula midline.post nasal drainage NECK: Supple. No lymphadenopathy CHEST: Clear to auscultation, breath sounds equal. No wheezing, rhonchi, rales, or stridor. No respiratory distress, speaks in full sentences.no cough noted SAO2 100% on room air HEART: Regular rate and rhythm. No murmur heard. SKIN: Warm, dry, no rash. NEURO: Alert and oriented x3. PSYCH: Normal mood and affect Course Course Emergency Course: Patient is aware of diagnosis, understands and agrees to treatment plan. Anticipatory guidance given. Patient agrees to follow-up as directed and is aware of reasons to seek care at the emergency department. Portions of this record may have been created with voice recognition software Level of Care: Express Care Visit Vital Signs Vital signs: Vital Signs Temperature 37.6 C H 03/31/25 11:14 Pulse Rate 105 H 03/31/25 11:14 Respiratory Rate 14 03/31/25 11:14 Blood Pressure 119/75 03/31/25 11:14 Pulse Oximetry 100 03/31/25 11:14 Temperature 37.6 C H 03/31/25 11:14 Pulse Rate 105 H 03/31/25 11:14 Respiratory Rate 14 03/31/25 11:14 Blood Pressure 119/75 03/31/25 11:14 Pulse Oximetry 100 03/31/25 11:14 Reviewed MDM - URI/Sore Throat MDM Narrative Medical decision making narrative: Differential diagnosis considered: Ramsey virus, strep pharyngitis, allergic rhinitis, upper respiratory tract infection, sinusitis, rhinosinusitis, nasopharyngitis. viral pharyngitis, otitis media, otitis externa, pneumonia, bronchitis, viral cough syndrome, viral syndrome, and influenza. Exam findings show no acute concerns or changes; patient is non-toxic appearing and is in no distress. Patient is appropriate for outpatient treatment and follow-up. Differential Diagnosis Differential diagnosis: Likely upper respiratory infection, otitis media, viral infection, pharyngitis and other (strep pharyngitis) Medical Records Attestation: I reviewed the patient's medical records. Lab Data Attestation: I reviewed the patient's lab results. Lab results narrative: strep screen negative, culture sent Labs: Lab Results 03/31/25 Range/Units 11:22 POC Grp A Strep Screen Negative (Negative) Critical Care Time Critical Care Time Critical Care Time: No Discharge Plan Discharge Clinical Impression: Left otitis media Qualifiers: Otitis media type: serous Chronicity: acute Recurrence: not specified as recurrent Qualified Code(s): H65.02 - Acute serous otitis media, left ear Pharyngitis Qualifiers: Pharyngitis/tonsillitis etiology: unspecified etiology Qualified Code(s): J02.9 - Acute pharyngitis, unspecified Patient Disposition: Home Condition: Stable Instructions: Antibiotic Form, Pharyngitis (ED), Ear Infection (GEN) Additional Instructions: Increase fluids especially juices and water [id number] cough and cold medicine of your choice for your symptoms Zyrtec Claritin or Ann daily Tylenol or ibuprofen for any fever pain heat to the face 20-30 minutes 4-6 times a day for pain Salt water gargles, throat lozenges or throat sprays as desired Antibiotic as directed--finish the medication If your symptoms persist, change or worsen significantly before you can contact your personal physician then please, without delay, go to the emergency department for further evaluation. Follow-up with PCP in 7-10 days or sooner if needed Your strep test today was negative. A throat culture will be sent to the laboratory for further testing. I Patient Language: Polish Prescriptions: New azithromycin 250 mg tablet See Rx Instructions .ROUTE .COMPLEX Qty: 6 0RF Rx Instructions: For 250 mg dose pack: take 500 mg today (day 1), then 250 mg for 4 days (days 2-5) Follow-up/Referrals: Binu Mueller DO [Primary Care Provider] - Time of Disposition: 11:52 Quality Farhan Coma Scale Eyes: Open Verbal: Oriented and Alert Motor: Follows Commands Farhan Coma Total Score: 15
[2025-03-31 14:08] LABS: EDSTREPNEGPOS1 Negative (Negative)
== END 2025-03-31 11:58 | disposition home or self-care (01) ==
PROVIDERS: Emergency Provider Registered Nurse; PCP Family Medicine
DX: H65.02 Acute serous otitis media, left ear (principal); J02.9 Acute pharyngitis, unspecified
CPT/HCPCS: 87081; 87880; 99213; G0463

== ENCOUNTER 2025-05-31 16:25 | Emergency (ER) | payer OTHER, SELFPAY ==
--- NOTE | 2025-05-31 16:32 | ED.URI ---
HPI - URI/Sore Throat General Chief Complaint: Upper Respiratory Infection Stated Complaint: fatigue/sore throat Time Seen by Provider: 05/31/25 16:25 Source: patient Mode of arrival: ambulatory Limitations: no limitations History of Present Illness HPI Narrative: Patient is a 24-year-old female who presents with 12 hours of headache, fever, chills, sore throat, fatigue, nausea. Patient states she had a headache yesterday that resolved with ibuprofen. Patient took ibuprofen this morning that dull the headache but did not help with body aches. Has not taken any medications since this morning. Patient states she has also been in the sun and not drinking any fluids. Related Data Allergies Allergy/AdvReac Type Severity Reaction Status Date / Time cefdinir Allergy Intermediate Hives Verified 05/31/25 17:03 Penicillins Allergy Unknown Verified 05/31/25 17:03 Review of Systems Review of Systems: All systems reviewed & are unremarkable except as noted in HPI and below Constitutional: Constitutional: Reports chills, Reports fatigue, Reports fever(s), Reports headache(s), Denies malaise and Denies weakness Eyes: Eyes: Denies blurry vision, Denies itchy eyes and Denies loss of vision ENT: Denies otalgia, Reports headache(s), Denies nasal congestion, Denies sinus pain and Reports sore throat Cardiovascular: Cardiovascular: Denies chest pain, Denies irregular heart rhythm and Denies dyspnea Respiratory: Respiratory: Denies cough and Denies dyspnea Gastrointestinal: Gastrointestinal: Denies abdominal pain, Denies diarrhea, Denies nausea and Denies vomiting Musculoskeletal: Musculoskeletal: Denies back pain, Reports myalgias and Denies arthralgias Integumentary/Breasts: Skin/Breast: Denies pruritus and Denies rash Neurologic: Reports headache(s), Denies loss of vision and Denies weakness Psychiatric: Psychiatric: Reports no additional psychiatric complaints Endocrine: Endocrine: Denies fatigue Allergic/Immunologic: Allergic/Immunologic: Denies itchy eyes PMFSH Past Medical History Medical History Heart palpitations UTI (urinary tract infection) Strep pharyngitis Surgical History Surgical History [place] teeth extracted Family History Family History Other No pertinent family history Social History Social History Smoking status: Never smoker Second hand tobacco smoke exposure: No Alcohol intake: current Substance use: former Substance use type: marijuana Last use: Dec 2021 Do You Feel Safe in your Home?: Yes Lack of Transportation: No Lack of Food: Never True Current Housing: I Do Not Have Housing Concerned About Future Housing: No Difficulty Paying Gas/Electric Bills: No Difficulty Paying for Meds: No Currently Unemployed: No Education: High School Diploma/GED Difficulty w/ Childcare or Family Care: No Gender identity (if verbalized by the patient): Female Spiritual care concerns: No Comments At time of signature, agree with nursing past medical, surgical, social and family history. There is no relevant family history pertinent to the presenting complaint. Exam Const: General: cooperative, no acute distress, ill appearing acutely, uncomfortable and well nourished Nutritional Appearance: well nourished Orientation/consciousness: patient oriented x3 Limitations: no limitations HENMT: Head: normal to inspection, normocephalic and atraumatic Ears: hearing grossly normal bilaterally, external ears normal, TM's normal bilaterally, EAC's normal and no periauricular adenopathy Face/Nose/Sinus: Normal external nose present, Normal nasal mucous membranes and turbinates present, normal facial exam, sinuses nontender and face symmetric Face and sinus: normal facial exam, sinuses nontender and face symmetric Mouth: Yes Normal oral and palatal mucosa present, Yes lip normal, Yes tongue normal, Yes Normal salivary glands and ducts present, Yes oropharynx normal and Yes moist mucous membranes Teeth and gingiva: dentition normal Throat: posterior oropharynx normal, tonsils normal and uvula midline Eyes: General: appearance normal, both eyes and all related structures Alignment and Position: alignment normal and position normal Periorbital: periorbital findings normal Eyelids: eyelids normal Pupils: Equal, round and reactive pupils present Neck: Neck: normal visual inspection, full ROM, no lymphadenopathy and supple Chest: Chest palpation & inspection: normal inspection of the chest and normal palpation of entire chest wall Resp: Effort & Inspection: normal respiratory effort and able to speak in complete sentences Auscultation: clear to auscultation bilaterally, no crackles, no rales, no rhonchi and no wheezes Cardio: Rate: regular rate Rhythm: regular rhythm Heart sounds: S1 normal heart sound present and S2 normal heart sound present GI: Inspection: normal to inspection Skin: General skin exam: normal color and no rashes or lesions noted Neuro: General: patient oriented x3 and moves all extremities Cranial nerves: Yes Equal, round and reactive pupils present Speech: normal speech Gait exam (Neuro): Normal gait present Extrem: General: normal to inspection, full ROM and no edema Psych: Appearance: grossly normal and well kempt Mental Status: mental status grossly normal Speech and movement: Normal speech and movement present Affect: normal affect Attitude: cooperative Thought process: Normal thought process present Course Course Emergency Course: Discharge instructions reviewed with patient, as well as provided in writing per nursing staff. The instructions also include specific and strict return/GO TO THE ER as well as f/u information. All questions have been answered, and the patient deny any further questions with discharge and discharge plan. Portions of this record may have been created with voice recognition software Level of Care: Express Care Visit Vital Signs Vital signs: Vital Signs Temperature 38.2 C H 05/31/25 16:37 Pulse Rate 145 H 05/31/25 16:37 Respiratory Rate 18 05/31/25 16:37 Blood Pressure 128/81 05/31/25 16:37 Pulse Oximetry 100 05/31/25 16:37 Oxygen Delivery Room Air 05/31/25 16:37 Temperature 38.2 C H 05/31/25 16:37 Pulse Rate 145 H 05/31/25 16:37 Respiratory Rate 18 05/31/25 16:37 Blood Pressure 128/81 05/31/25 16:37 Pulse Oximetry 100 05/31/25 16:37 Oxygen Delivery Room Air 05/31/25 16:37 Reviewed. Repeat heart rate 120 MDM - URI/Sore Throat MDM Narrative Medical decision making narrative: Pt acutely ill appearing but not diaphoretic and skin is warm and dry, in no respiratory distress, tachycardic but blood pressure stable. Recommend supportive care and alternating tylenol and ibuprofen to decrease fever and help with headache/bodyaches. The patient is stable at time of discharge the clinical impression was discussed and the patient was given the opportunity to ask questions, which were addressed as completely as possible given the information available at present. Anticipatory guidance and return to care precautions were discussed and the importance of primary care follow-up was stressed and encouraged. The patient voiced understanding of the plan, indications to return, and the need for follow-up. Exam findings show no acute concerns or changes Patient is appropriate for outpatient treatment and follow-up. Differential diagnosis considered: Ramsey virus, strep pharyngitis, allergic rhinitis, upper respiratory tract infection, sinusitis, rhinosinusitis, nasopharyngitis. viral pharyngitis, otitis media, otitis externa, otitis effusion, foreign body, cerumen impaction, viral syndrome, and influenza.? Medical Records Attestation: I reviewed the patient's medical records. Lab Data Attestation: I reviewed the patient's lab results. Labs: Lab Results 05/31/25 05/31/25 05/31/25 Range/Units 16:49 16:56 16:57 POC Influenza A Ag Negative (Negative) POC Influenza B Ag Negative (Negative) POC SARS CoV-2 Ag Negative (Negative) POC Grp A Strep Screen Negative (Negative) Discharge Plan Discharge Clinical Impression: Upper respiratory infection Qualifiers: URI type: unspecified viral URI Qualified Code(s): J06.9 - Acute upper respiratory infection, unspecified Patient Disposition: Home Condition: Stable Instructions: Upper Respiratory Infection (ED) Additional Instructions: Your rapid strep swab was negative today at [facility]. A throat culture will be sent to the laboratory for further testing. If the test is positive, you will receive a phone call within 48 hours and an appropriate antibiotic will be initiated at that time. Your Covid and flu are both negative Your symptoms are likely due to a viral illness, which is not treated with antibiotics. Viral symptoms can be present for up to a few weeks. -For pain/fever, you may take: Tylenol 650-1000mg by mouth every 4-6 hours. Do not exceed 4000mg in 24 hours. Advil (Ibuprofen) 600 mg by mouth every 6 hours. Do not exceed 2400mg in 24 hours. 8 AM: Tylenol 11 AM: Ibuprofen 2 PM: Tylenol 5 PM: Ibuprofen 8 PM: Tylenol 11 PM: Ibuprofen 2 AM: Tylenol 5 AM: Ibuprofen -Antihistamine medication such as Benadryl/Zyrtec at night and Claritin/Ann during the day can help improve symptoms. -Use Flonase twice a day for 5 days then daily to help reduce the inflammation and dry up your sinuses. -You can also use Sudafed behind the pharmacy counter(12 or 24 hour). Be sure to drink plenty of water with these medications at least 8 ounces with every dose and it is important to drink 8 to 10 glasses of water per day. Water is a natural decongestant -Eat and drink things that are easy to swallow, like tea or soup, or popsicles. -Oral rinses such as: Salt water gargles and/or may use topical anesthetic (eg. Chloraseptic spray) or lozenges to relieve dryness or throat pain). -Frequent hand washing or hand senior java software developer is one of the best ways to prevent spread of infection. -Using a vaporizer or humidifier at night will also help thin secretions and help with coughing up phlegm. Call your Primary Care Doctor and make a follow-up appointment in 3 days. If your cough worsens, you develop a fever greater than 103, you develop shaking chills, a fast heartbeat, trouble breathing and/or feel you are are breathing much faster than usual, call your Primary Care Doctor or go to the ER. Patient Language: Romansh Prescriptions: New ondansetron 4 mg tablet,disintegrating 4 mg PO Q6-8H PRN (Reason: nausea and vomiting) Qty: 7 0RF Follow-up/Referrals: Binu Mueller DO [Primary Care Provider] - 3 Days Time of Disposition: 17:27
[2025-05-31 16:37] VITALS: BP 128/81; PULSE 145; RESP 18; TEMP 38.2; O2SAT 100
[2025-05-31 16:51] LABS: EDSTREPNEGPOS1 Negative (Negative)
[2025-05-31 17:00] LABS: EDINFLUASCREEN Negative (Negative); EDINFLUBSCREEN Negative (Negative)
[2025-05-31 17:00] LABS: EDCOVIDSCREEN Negative (Negative)
== END 2025-05-31 17:32 | disposition home or self-care (01) ==
PROVIDERS: Emergency Provider Nurse Practitioner Family; PCP Family Medicine
DX: J06.9 Acute upper respiratory infection, unspecified (principal); Z20.822 Contact with and (suspected) exposure to COVID-19
CPT/HCPCS: 87081; 87426; 87804; 87880; 99213; G0463